=== PATIENT | female | born 1970 | race Caucasian/White ===

== ENCOUNTER → 2021-03-07 08:04 | Outpatient (BNVA) | payer BC, SELFPAY | PROVIDERS: PCP Family Medicine; Visit Provider Nurse Practitioner Family ==

== ENCOUNTER → 2021-03-21 09:22 | Outpatient (BNVA) | payer BC, SELFPAY | PROVIDERS: PCP Family Medicine; Visit Provider Nurse Practitioner Family ==

== ENCOUNTER → 2021-04-29 08:03 | Outpatient (BNVA) | payer BC, SELFPAY | PROVIDERS: PCP Family Medicine; Visit Provider Nurse Practitioner Family ==

== ENCOUNTER → 2021-05-27 08:02 | Outpatient (BNVA) | payer BC, SELFPAY | PROVIDERS: PCP Family Medicine; Visit Provider Nurse Practitioner Family ==

== ENCOUNTER → 2021-07-02 08:02 | Outpatient (BNVA) | payer BC, SELFPAY | PROVIDERS: PCP Family Medicine; Visit Provider Nurse Practitioner Family ==

== ENCOUNTER → 2021-07-30 08:00 | Outpatient (BNVA) | payer BC, SELFPAY | PROVIDERS: PCP Family Medicine; Visit Provider Anesthesiology ==

== ENCOUNTER → 2021-08-29 08:23 | Outpatient (BNVA) | payer BC, SELFPAY | PROVIDERS: PCP Family Medicine; Visit Provider Nurse Practitioner Family ==

== ENCOUNTER → 2021-09-26 08:18 | Outpatient (BNVA) | payer BC, SELFPAY | PROVIDERS: PCP Family Medicine; Visit Provider Nurse Practitioner Family ==

== ENCOUNTER → 2021-10-24 08:48 | Outpatient (BNVA) | payer BC, SELFPAY | PROVIDERS: PCP Family Medicine; Visit Provider Nurse Practitioner Family ==

== ENCOUNTER → 2021-11-21 11:18 | Outpatient (BNVA) | payer BC, SELFPAY | PROVIDERS: PCP Family Medicine; Visit Provider Nurse Practitioner Family ==

== ENCOUNTER → 2021-12-19 08:44 | Outpatient (BNVA) | payer BC, SELFPAY | PROVIDERS: PCP Family Medicine; Visit Provider Nurse Practitioner Family ==

== ENCOUNTER → 2022-01-16 08:13 | Outpatient (BNVA) | payer BC, SELFPAY | PROVIDERS: PCP Family Medicine; Visit Provider Nurse Practitioner Family ==

== ENCOUNTER → 2022-02-13 08:00 | Outpatient (BNVA) | payer BC, SELFPAY | PROVIDERS: PCP Family Medicine; Visit Provider Internal Medicine | DX: Z13.89 Encounter for screening for other disorder (principal) ==

== ENCOUNTER → 2022-03-12 07:57 | Outpatient (BNVA) | payer BC, SELFPAY | PROVIDERS: Visit Provider Internal Medicine Endocrinology, Diabetes & Metabolism | DX: Z13.89 Encounter for screening for other disorder (principal) ==

== ENCOUNTER → 2022-03-20 08:23 | Outpatient (BNVA) | payer BC, SELFPAY | PROVIDERS: PCP Family Medicine; Visit Provider Nurse Practitioner Family | DX: Z13.89 Encounter for screening for other disorder (principal) ==

== ENCOUNTER → 2022-04-17 08:01 | Outpatient (BNVA) | payer BC, SELFPAY | PROVIDERS: PCP Family Medicine; Visit Provider Nurse Practitioner Family | DX: Z13.89 Encounter for screening for other disorder (principal) ==

== ENCOUNTER → 2022-07-14 08:24 | Outpatient (BNVA) | payer BC, SELFPAY | PROVIDERS: PCP Family Medicine; Visit Provider Nurse Practitioner Family | DX: Z51.81 Encounter for therapeutic drug level monitoring (principal); Z79.899 Other long term (current) drug therapy | CPT/HCPCS: 99211 ==

== ENCOUNTER → 2022-11-23 08:17 | Outpatient (BNVA) | payer BC, SELFPAY | PROVIDERS: PCP Family Medicine; Visit Provider Nurse Practitioner Family | DX: Z79.899 Other long term (current) drug therapy (principal) ==

== ENCOUNTER → 2022-12-21 08:22 | Outpatient (BNVA) | payer BC, SELFPAY | PROVIDERS: PCP Family Medicine; Visit Provider Nurse Practitioner Family | DX: Z79.899 Other long term (current) drug therapy (principal) ==

== ENCOUNTER → 2023-01-18 08:18 | Outpatient (BNVA) | payer BC, SELFPAY | PROVIDERS: PCP Family Medicine; Visit Provider Nurse Practitioner Family | DX: Z13.89 Encounter for screening for other disorder (principal) ==

== ENCOUNTER → 2023-02-15 08:34 | Outpatient (BNVA) | payer BC, SELFPAY | PROVIDERS: PCP Family Medicine; Visit Provider Nurse Practitioner Family | DX: Z13.89 Encounter for screening for other disorder (principal) ==

== ENCOUNTER → 2023-03-15 13:21 | Outpatient (BNVA) | payer BC, SELFPAY | PROVIDERS: PCP Family Medicine; Visit Provider Nurse Practitioner Family | DX: Z13.89 Encounter for screening for other disorder (principal) ==

== ENCOUNTER → 2023-04-14 08:35 | Outpatient (BNVA) | payer BC, SELFPAY | PROVIDERS: PCP Family Medicine; Visit Provider Nurse Practitioner Family ==

== ENCOUNTER → 2023-05-13 08:20 | Outpatient (BNVA) | payer BC, SELFPAY | PROVIDERS: PCP Family Medicine; Visit Provider Nurse Practitioner Family ==

== ENCOUNTER 2023-06-10 08:22 | Outpatient (AMB) | payer BC, SELFPAY ==
--- NOTE | 2023-06-10 08:29 | MHC.OFFVIS ---
Intake Vital Signs 06/10/23 08:35 Height 5 ft 4 in Weight 186 lb BMI 31.9 BP 135/63 Blood Pressure Location Lt brachial Position Sitting Pulse 69 Pulse Source Pulse Oximeter Pulse Oximetry (%) 97 Oxygen Delivery Method Room Air Intake Visit Reasons: Pill count Intake Note: Otilia comes in today for a pill count to oxycodone-acetaminophen, patient should have 78 tablets and presents with 78 tablets which she last took today 06/10/23 at 6am. Pain today5/10. Clinical Nursing Intern Required: No Accompanied by: Self / Same As Patient Allergies amphetamine [From Mydayis] Allergy (Severe, Verified 06/10/23 08:36) Hypertension dextroamphetamine [From Mydayis] Allergy (Severe, Verified 06/10/23 08:36) Hypertension HPI HPI Comments History of Present Illness Details Otilia returns today for a pill count. She is supposed to have #78 pills in her possession and presents with #78 pills. This demonstrates a responsible attitude in regards to the medication regimen. Patient reports adequate analgesia with no noted side effects. Denies any changes to her symptoms or any fever, hot flashes, headaches, constipation, sedation, nausea, dizziness or urinary retention. She rates her pain at 5/10. Patient reports current medication regime allows her to be less symptomatic and more functional. Patient continues to report insomnia due to menopause and has not slept well for few nights. She was told to take Benadryl by her current Chinese Instructor provider. Patient is interested in Psychology referral to manage her insomnia and chronic pain syndrome with potential referral for CBT therapy. [facility] Surgical History H/O breast augmentation Family History Mother Carcinoid tumor Diabetes Hypertension High cholesterol Father Heart disease Social History Alcohol intake: current Alcohol intake frequency: does not drink Patient Tobacco Use Status: Former Tobacco user Review of Systems Const All systems reviewed & are unremarkable except as noted in HPI and below Physical Exam General: Appears afebrile. Alert and oriented. Mood and affect appropriate. Follows and participates in conversation appropriately. Respiratory effort is unlabored. No cough. Able to transition from sit to stand unassisted. Ambulates with bilaterally normal heel strike and toe off. Psych Appearance: grossly normal Mental Status: mental status grossly normal Speech and movement: Normal speech and movement present and Clear speech present Affect: normal affect Attitude: cooperative Thought process: Normal thought process present Thought content: Normal thought content present, suicidality (none), no hallucinations and No Depressive thoughts present Insight: Good insight present (Psych) Judgement: Good judgement present (Psych) Assessment & Plan Assessment & Plan (1) Menopause syndrome: Code(s): N95.1 - Menopausal and female climacteric states (2) Insomnia associated with menopause: Code(s): N95.1 - Menopausal and female climacteric states (3) Chronic, continuous use of opioids: Code(s): F11.90 - Opioid use, unspecified, uncomplicated (4) Pituitary adenoma: Code(s): D35.2 - Benign neoplasm of pituitary gland (5) Chronic pain: Code(s): G89.29 - Other chronic pain Plan Otilia has shown accountability for her medication regimen and the pill count was accurate. Recent random UDS came back concordant. The patient reported no noted side effects and she reports adequate pain relief. There is no evidence of misuse, abuse or diversion at this time. [employer] reviewed. Opioid contract reviewed and signed. Will send in prescription for Percocet 10-325 mg TID with an advanced date of 06/23/23. Psychology referral for insomnia related to menopause per patient's request. All questions were answered and patient was in agreement of plan. Follow up in one month for a pill counn and sooner if needed. Orders: Referrals Psychology Referral D35.2 - Benign neoplasm of pituitary gland, F190 - Opioid use, unspecified, uncomplicated, N95.1 - Menopausal and female climacteric states Medications: Refilled oxycodone-acetaminophen 5-325 mg Partial Fill upon patient request. 2 tabs PO Q8H PRN 180 tabs 0RF pain 30 days D35.2 - Benign neoplasm of pituitary gland, F190 - Opioid use, unspecified, uncomplicated, G89.29 - Other chronic pain Coding Level of Care Code Est Pt Level 4 (38792) Diagnoses Menopause syndrome N95.1 Insomnia associated with menopause N95.1 Chronic, continuous use of opioids . Pituitary adenoma D35.2 Chronic pain G89.29
[2023-06-10 08:35] VITALS: BP 135/63; PULSE 69; O2SAT 97; BMI 31.9
== END 2023-06-10 08:40 | disposition home or self-care (01) ==
PROVIDERS: PCP Family Medicine; Visit Provider Nurse Practitioner Family
DX: N95.1 Menopausal and female climacteric states (principal); D35.2 Benign neoplasm of pituitary gland; G89.29 Other chronic pain; Z79.891 Long term (current) use of opiate analgesic
CPT/HCPCS: 99214

== ENCOUNTER 2023-07-08 08:49 | Outpatient (AMB) | payer BC, SELFPAY ==
--- NOTE | 2023-07-08 08:51 | A.OFFVIS_ITS ---
Intake Vital Signs 07/08/23 09:02 07/08/23 09:28 Height 5 ft 4 in Weight 187 lb 6 oz BMI 32.2 BP 165/74 H 141/77 H Blood Pressure Location Rt brachial Lt brachial Position Sitting Sitting Respiration 16 Pulse 75 76 Pulse Source Pulse Oximeter Pulse Oximetry (%) 98 Oxygen Delivery Method Room Air Comment BP rechecked at 0915 Intake Visit Reasons: PILL COUNT Intake Note: Otilia comes in today for a pill count to oxycodone-acetaminophen, patient should have 90 tablets and presents with 90 tablets which she last took today 07/08/23 at 8am. Pain today 6/10. Mail Service Coordinator Required: No Accompanied by: Self / Same As Patient Allergies amphetamine [From Mydayis] Allergy (Severe, Verified 07/08/23 09:03) Hypertension dextroamphetamine [From Mydayis] Allergy (Severe, Verified 07/08/23 09:03) Hypertension HPI HPI Comments History of Present Illness Details Patient presents today for a pill count. She is supposed to have #90 pills in her possession and presents with #90 pills. This demonstrates a responsible attitude in regards to the medication regimen. Patient reports adequate analgesia with no noted side effects. Patient reports current medication regime allows her to be less symptomatic and more functional. Patient reports she recently had eye exam and is undergoing another visual field testing this week to confirm left eye glaucoma and discuss treatments with her provider. She denies any other changes to her symptoms or any fever, hot flashes, headaches, constipation, sedation, nausea, dizziness or urinary retention. She rates her pain at 6/10. [facility] Surgical History H/O breast augmentation Family History Mother Carcinoid tumor Diabetes Hypertension High cholesterol Father Heart disease Social History Alcohol intake: current Alcohol intake frequency: does not drink Patient Tobacco Use Status: Former Tobacco user Review of Systems Const All systems reviewed & are unremarkable except as noted in HPI and below Physical Exam Vital Signs: Last Vital Signs Pulse 76 07/08/23 09:28 Resp 16 07/08/23 09:28 BP 141/77 H 07/08/23 09:28 Pulse Ox 98 07/08/23 09:02 Oxygen Delivery Method Room Air 07/08/23 09:02 BMI result Body Mass Index 32.2 General: Appears afebrile. Alert and oriented. Mood and affect appropriate. Fully engaged in conversation. Follows and participates in conversation appropriately. Respiratory effort is unlabored. No cough. No nasal discharge. Able to transition from sit to stand unassisted. Ambulates with bilaterally normal heel strike and toe off. Psych Appearance: grossly normal Mental Status: mental status grossly normal Speech and movement: Normal speech and movement present and Clear speech present Affect: normal affect Attitude: cooperative Thought process: Normal thought process present Thought content: Normal thought content present, suicidality (none), no hallucinations and No Depressive thoughts present Insight: Good insight present (Psych) Judgement: Good judgement present (Psych) Assessment & Plan Assessment & Plan (1) Chronic, continuous use of opioids: Code(s): F1.90 - Opioid use, unspecified, uncomplicated (2) Pituitary adenoma: Code(s): D35.2 - Benign neoplasm of pituitary gland (3) Chronic pain: Code(s): G89.29 - Other chronic pain Plan Patient has shown accountability for her medication regimen and the pill count was accurate. The patient reported no noted side effects and she reports adequate pain relief. There is no evidence of misuse, abuse or diversion at this time. [employer] reviewed. Will send in prescription for Percocet 10-325 mg TID with an advanced date of 07/23/23. All questions were answered and patient was in agreement of plan. Follow up in one month for a pill count and sooner if needed. Medications: Refilled oxycodone-acetaminophen 5-325 mg Partial Fill upon patient request. 2 tabs PO Q8H 30 days PRN 180 tabs 0RF pain D35.2 - Benign neoplasm of pituitary gland, F11.90 - Opioid use, unspecified, uncomplicated, G89.29 - Other chronic pain Coding Level of Care Code Est Pt Level 4 (34634) Diagnoses Chronic, continuous use of opioids Pituitary adenoma D35.2 Chronic pain G89.29
[2023-07-08 09:02] VITALS: BP 165/74; PULSE 75; O2SAT 98; BMI 32.2
[2023-07-08 09:28] VITALS: BP 141/77; PULSE 76; RESP 16
== END 2023-07-08 09:14 | disposition home or self-care (01) ==
PROVIDERS: PCP Family Medicine; Visit Provider Nurse Practitioner Family
DX: G89.29 Other chronic pain (principal); Z79.891 Long term (current) use of opiate analgesic; D35.2 Benign neoplasm of pituitary gland
CPT/HCPCS: 99214

== ENCOUNTER → 2023-07-08 08:49 | Outpatient (BNVA) | payer BC, SELFPAY | PROVIDERS: PCP Family Medicine; Visit Provider Nurse Practitioner Family ==

== ENCOUNTER 2023-08-05 08:31 | Outpatient (AMB) | payer BC, SELFPAY ==
--- NOTE | 2023-08-05 08:38 | A.OFFVIS_ITS ---
Intake Vital Signs 08/05/23 08:46 Height 5 ft 4 in Weight 185 lb 2 oz BMI 31.8 BP 132/75 Blood Pressure Location Lt brachial Position Sitting Pulse 69 Pulse Source Pulse Oximeter Pulse Oximetry (%) 98 Oxygen Delivery Method Room Air Intake Visit Reasons: Pill count/Lvm Intake Note: Otilia comes in today for a pill count to oxycodone-acetaminophen, patient should have 102 tablets and presents with 102 tablets which she last took today 08/05/23 at 8am. Pain today 6/10. Managing Manager Required: No Accompanied by: Self / Same As Patient Allergies amphetamine [From Mydayis] Allergy (Severe, Verified 08/05/23 08:47) Hypertension dextroamphetamine [From Mydayis] Allergy (Severe, Verified 08/05/23 08:47) Hypertension HPI HPI Comments History of Present Illness Details Patient presents today for a pill count. She is supposed to have #102 pills in her possession and presents with #102 pills. This demonstrates a responsible attitude in regards to the medication regimen. Patient reports adequate analgesia with no noted side effects. Patient reports current medication regime allows her to be less symptomatic and more functional. Patient denies any fever, chills, shortness of breaths, constipation, sedation, nausea, dizziness or urinary retention. She rates her pain at 6/10 due to overcoming from a strong headache yesterday. [facility] Surgical History H/O breast augmentation Family History Mother Carcinoid tumor Diabetes Hypertension High cholesterol Father Heart disease Social History Alcohol intake: current Alcohol intake frequency: does not drink Patient Tobacco Use Status: Former Tobacco user Review of Systems Const All systems reviewed & are unremarkable except as noted in HPI and below Physical Exam General: Appears afebrile. Alert and oriented. Mood and affect appropriate. Follows and participates in conversation appropriately. Respiratory effort is unlabored. No cough. Able to transition from sit to stand unassisted. Ambulates with bilaterally normal heel strike and toe off. Psych Appearance: grossly normal and well kempt Mental Status: mental status grossly normal Speech and movement: Normal speech and movement present and Clear speech present Affect: normal affect Attitude: cooperative Thought process: Normal thought process present Thought content: Normal thought content present, suicidality (none), no hallucinations and No Depressive thoughts present Insight: Good insight present (Psych) Judgement: Good judgement present (Psych) Assessment & Plan Assessment & Plan (1) Chronic, continuous use of opioids: Code(s): F11.90 - Opioid use, unspecified, uncomplicated (2) Pituitary adenoma: Code(s): D35.2 - Benign neoplasm of pituitary gland (3) Chronic pain: Code(s): G89.29 - Other chronic pain Plan Patient has shown accountability for her medication regimen and the pill count was accurate. The patient reported no noted side effects and she reports adequate pain relief. There is no evidence of misuse, abuse or diversion at this time. [employer]. Will send in prescription for Percocet 10-325 mg TID with an advanced date of 08/21/23. All questions were answered and patient was in agreement of plan. Follow up in one month for a pill count and sooner if needed. Medications: Refilled oxycodone-acetaminophen 5-325 mg Partial Fill upon patient request. 2 tabs PO Q8H PRN 180 tabs 0RF pain 30 days D35.2 - Benign neoplasm of pituitary gland, F11.90 - Opioid use, unspecified, uncomplicated, G89.29 - Other chronic pain Coding Level of Care Code Est Pt Level 4 (59188) Diagnoses Chronic, continuous use of opioids F11.90 Pituitary adenoma D35.2 Chronic pain G89.29
[2023-08-05 08:46] VITALS: BP 132/75; PULSE 69; O2SAT 98; BMI 31.8
== END 2023-08-05 08:58 | disposition home or self-care (01) ==
PROVIDERS: PCP Family Medicine; Visit Provider Nurse Practitioner Family
DX: G89.29 Other chronic pain (principal); D35.2 Benign neoplasm of pituitary gland; Z79.891 Long term (current) use of opiate analgesic
CPT/HCPCS: 99214

== ENCOUNTER → 2023-08-05 08:31 | Outpatient (BNVA) | payer BC, SELFPAY | PROVIDERS: PCP Family Medicine; Visit Provider Nurse Practitioner Family ==

== ENCOUNTER 2023-09-03 12:52 | Outpatient (AMB) | payer BC, SELFPAY ==
--- NOTE | 2023-09-03 12:54 | MHC.OFFVIS ---
Intake Vital Signs 09/03/23 13:06 Height 5 ft 4 in Weight 187 lb 8 oz BMI 32.2 BP 147/67 H Blood Pressure Location Lt brachial Position Sitting Pulse 66 Pulse Source Pulse Oximeter Pulse Oximetry (%) 97 Oxygen Delivery Method Room Air Intake Visit Reasons: PILL COUNT Intake Note: Otilia comes in today for a pill count to oxycodone-acetaminophen, patient should have 96 tablets and presents with 102 tablets which she last took today 09/03/23 at 11 am. Pain today 04/24 Patient states that she will be going on a business trip for work starting 09/06/23 through 09/10/23. [employer] Required: No Accompanied by: Self / Same As Patient Allergies amphetamine [From Mydayis] Allergy (Severe, Verified 09/03/23 13:07) Hypertension dextroamphetamine [From Mydayis] Allergy (Severe, Verified 09/03/23 13:07) Hypertension HPI HPI Comments History of Present Illness Details Patient presents today for a pill count. She is supposed to have #96 pills in her possession and presents with #102 pills. This demonstrates a responsible attitude in regards to the medication regimen. Patient reports adequate analgesia with no noted side effects. Patient reports current medication regime allows her to be less symptomatic and more functional. Patient denies any fever, chills, shortness of breaths, chest pain or tightness, visual disturbances, weakness, constipation, sedation, nausea, dizziness or urinary retention. Patient continues to report sleep deprivation, insomnia and headaches due to post menopausal changes. She was recently prescribed Dayvigo 5 mg at bedtime but unable to receive medication due to prolonged prior authorization status per her PCP office. [facility] Surgical History H/O breast augmentation Family History Mother Carcinoid tumor Diabetes Hypertension High cholesterol Father Heart disease Social History Alcohol intake: current Alcohol intake frequency: does not drink Patient Tobacco Use Status: Former Tobacco user Review of Systems Const All systems reviewed & are unremarkable except as noted in HPI and below Physical Exam General: Appears afebrile. Alert and oriented. Mood and affect appropriate. Follows and participates in conversation appropriately. Respiratory effort is unlabored. No cough. Able to transition from sit to stand unassisted. Ambulates with bilaterally normal heel strike and toe off. Psych Appearance: grossly normal and well kempt Mental Status: mental status grossly normal Speech and movement: Normal speech and movement present and Clear speech present Affect: normal affect Attitude: cooperative Thought process: Normal thought process present Thought content: Normal thought content present, suicidality (none), no hallucinations and No Depressive thoughts present Insight: Good insight present (Psych) Judgement: Good judgement present (Psych) Assessment & Plan Assessment & Plan (1) Insomnia associated with menopause: Code(s): N95.1 - Menopausal and female climacteric states (2) Chronic, continuous use of opioids: Code(s): F1.90 - Opioid use, unspecified, uncomplicated (3) Pituitary adenoma: Code(s): D35.2 - Benign neoplasm of pituitary gland (4) Chronic pain: Code(s): G89.29 - Other chronic pain Plan Patient has shown accountability for her medication regimen and the pill count was accurate. The patient reported no noted side effects and she reports adequate pain relief. There is no evidence of misuse, abuse or diversion at this time. [employer] reviewed. Will send in prescription for Percocet 10-325 mg TID with an advanced date of 09/20/23. Script send for Dayvigo, side effects and precautions were reviewed with patient. All questions were answered and patient was in agreement of plan. Follow up in one month for a pill count and sooner if needed. Medications: New lemborexant (Dayvigo) 5 mg PO BEDTIME 30 days 30 tabs 0RF insomnia N95.1 - Menopausal and female climacteric states Refilled oxycodone-acetaminophen 5-325 mg Partial Fill upon patient request. 2 tabs PO Q8H 30 days PRN 180 tabs 0RF pain D35.2 - Benign neoplasm of pituitary gland, F1.90 - Opioid use, unspecified, uncomplicated, G89.29 - Other chronic pain Coding Level of Care Code Est Pt Level 4 (22482) Diagnoses Insomnia associated with menopause N95.1 Chronic, continuous use of opioids F1.90 Pituitary adenoma D35.2 Chronic pain G89.29
[2023-09-03 13:06] VITALS: BP 147/67; PULSE 66; O2SAT 97; BMI 32.2
== END 2023-09-03 13:19 | disposition home or self-care (01) ==
PROVIDERS: PCP Family Medicine; Visit Provider Nurse Practitioner Family
DX: G89.29 Other chronic pain (principal); N95.1 Menopausal and female climacteric states; D35.2 Benign neoplasm of pituitary gland; Z79.891 Long term (current) use of opiate analgesic
CPT/HCPCS: 99214

== ENCOUNTER → 2023-09-03 12:52 | Outpatient (BNVA) | payer BC, SELFPAY | PROVIDERS: PCP Family Medicine; Visit Provider Nurse Practitioner Family ==

== ENCOUNTER → 2023-10-06 12:55 | Outpatient (BNVA) | payer BC, SELFPAY | PROVIDERS: PCP Family Medicine; Visit Provider Nurse Practitioner Family | DX: Z79.891 Long term (current) use of opiate analgesic (principal) | CPT/HCPCS: 99211 ==

== ENCOUNTER 2023-11-05 13:10 | Outpatient (AMB) | payer BC, SELFPAY ==
--- NOTE | 2023-11-05 13:16 | A.OFFVIS_ITS ---
Intake Vital Signs 11/05/23 13:24 Height 5 ft 4 in Weight 187 lb 2 oz BMI 32.1 BP 152/67 H Blood Pressure Location Rt brachial Position Sitting Pulse 63 Pulse Source Pulse Oximeter Pulse Oximetry (%) 97 Oxygen Delivery Method Room Air Intake Visit Reasons: Medication Count/lvm Intake Note: Otilia comes in today for a pill count to oxycodone-acetaminophen, patient should have 72 tablets and presents with 79 tablets which she last took today 11/05/23 at 11am. Pain today 4.5 Anesthesiologist Attending Required: No Accompanied by: Self / Same As Patient Allergies amphetamine [From Mydayis] Allergy (Severe, Verified 11/05/23 13:24) Hypertension dextroamphetamine [From Mydayis] Allergy (Severe, Verified 11/05/23 13:24) Hypertension HPI HPI Comments History of Present Illness Details Patient presents today for a pill count. She is supposed to have #72 pills in her possession and presents with #79 pills. This demonstrates a respon sible attitude in regards to the medication regimen. Patient reports adequate analgesia with no noted side effects. Patient reports current medication regime allows her to be less symptomatic and more functional. Patient denies any fever, chills, shortness of breaths, chest pain or tightness, visual disturbances, weakness, constipation, sedation, nausea, dizziness or urinary retention. Patient reports significant improvement in her sleep onset and maintenance since starting Dayvigo 5 mg at bedtime. She reports 7 hours of night sleep and wakes up without drowsiness, rested and with increased energy levels. [facility] Surgical History H/O breast augmentation Family History Mother Carcinoid tumor Diabetes Hypertension High cholesterol Father Heart disease Social History Alcohol intake: current Alcohol intake frequency: does not drink Patient Tobacco Use Status: Former Tobacco user Review of Systems Const All systems reviewed & are unremarkable except as noted in HPI and below Physical Exam Vital Signs: Last Vital Signs Pulse 63 11/05/23 13:24 BP 152/67 H 11/05/23 13:24 Pulse Ox 97 11/05/23 13:24 Oxygen Delivery Method Room Air 11/05/23 13:24 BMI result Body Mass Index 32.1 General: Appears afebrile. Alert and oriented. Mood and affect appropriate. Follows and participates in conversation appropriately. Respiratory effort is unlabored. No cough. Able to transition from sit to stand unassisted. Ambulates with bilaterally normal heel strike and toe off. Psych Appearance: grossly normal Mental Status: mental status grossly normal Speech and movement: Normal speech and movement present and Clear speech present Affect: normal affect and Ecstatic affect present Attitude: cooperative Thought process: Normal thought process present Thought content: Normal thought content present, suicidality (none), no hallucinations and No Depressive thoughts present Insight: Good insight present (Psych) Judgement: Good judgement present (Psych) Assessment & Plan Assessment & Plan (1) Insomnia associated with menopause: Code(s): N95.1 - Menopausal and female climacteric states (2) Chronic, continuous use of opioids: Code(s): F1.90 - Opioid use, unspecified, uncomplicated (3) Pituitary adenoma: Code(s): D35.2 - Benign neoplasm of pituitary gland (4) Chronic pain: Code(s): G89.29 - Other chronic pain Plan Patient has shown accountability for her medication regimen and the pill count was accurate. The patient reported no noted side effects and she reports adequate pain relief. There is no evidence of misuse, abuse or diversion at this time. [employer] reviewed. Will send in prescription for Percocet 10-325 mg TID with an advanced date of 11/18/23. Refill sent for Dayvigo. All questions were answered and patient was in agreement of plan. Follow up in one month for a pill count and sooner if needed. Medications: Refilled lemborexant (Dayvigo) 5 mg PO BEDTIME 30 days 30 tabs 2RF insomnia N95.1 - Menopausal and female climacteric states oxycodone-acetaminophen 5-325 mg Partial Fill upon patient request. 2 tabs PO Q8H 30 days PRN 180 tabs 0RF pain D35.2 - Benign neoplasm of pituitary gland, F11.90 - Opioid use, unspecified, uncomplicated, G89.29 - Other chronic pain Coding Level of Care Code Est Pt Level 4 (30636) Diagnoses Insomnia associated with menopause N95.1 Chronic, continuous use of opioids F11.90 Pituitary adenoma D35.2 Chronic pain G89.29
[2023-11-05 13:24] VITALS: BP 152/67; PULSE 63; O2SAT 97; BMI 32.1
== END 2023-11-05 13:34 | disposition home or self-care (01) ==
PROVIDERS: PCP Family Medicine; Visit Provider Nurse Practitioner Family
DX: G89.29 Other chronic pain (principal); D35.2 Benign neoplasm of pituitary gland; Z79.891 Long term (current) use of opiate analgesic; N95.1 Menopausal and female climacteric states
CPT/HCPCS: 99214

== ENCOUNTER → 2023-11-05 13:10 | Outpatient (BNVA) | payer BC, SELFPAY | PROVIDERS: PCP Family Medicine; Visit Provider Nurse Practitioner Family ==

== ENCOUNTER 2023-12-10 08:15 | Outpatient (AMB) | payer BC, SELFPAY ==
--- NOTE | 2023-12-10 08:20 | MHC.OFFVIS ---
Intake Vital Signs 12/10/23 08:29 Height 5 ft 4 in Weight 185 lb 4 oz BMI 31.8 BP 143/77 H Blood Pressure Location Rt brachial Pulse 77 Pulse Source Pulse Oximeter Pulse Oximetry (%) 99 Oxygen Delivery Method Room Air Intake Visit Reasons: PILL COUNT/confirmed Intake Note: Otilia comes in today for a pill count to oxycodone-acetaminophen, patient should have 48 tablets and presents with 48 tablets which she last took today 12/10/23 at 7am. Pain today 02/22. Patient also resigned updated opioid contract in office today, signed copy was provided to patient. 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 She is supposed to have #48 pills in her possession and presents with #48 pills. This demonstrates a responsible attitude in regards to the medication regimen. Patient reports adequate analgesia with no noted side effects. Patient reports current medication regime allows her to be less symptomatic and more functional. Patient denies any fever, chills, shortness of breaths, chest pain or tightness, visual disturbances, weakness, constipation, sedation, nausea, dizziness or urinary retention. Patient reports significant improvement in her sleep onset and maintenance since starting Dayvigo 5 mg at bedtime. Patient reports she recently underwent Coronary calcium scan and was told it was normal. However, she reports there was incidental finding of bibasilar atelectasis and 4 mm pulmonary nodule at [facility]. Patient requests referral to [facility] for follow up for pulmonary nodules. [facility] Medical History (Updated 12/10/23 @ 11:16 by STEPHEN Plasencia) Obesity (BMI 30-39.9) Menopause syndrome Insomnia associated with menopause Diabetes Chronic pain Pituitary adenoma Surgical History H/O breast augmentation Family History Mother Carcinoid tumor Diabetes Hypertension High cholesterol Father Heart disease Social History Alcohol intake: current Alcohol intake frequency: does not drink Patient Tobacco Use Status: Former Tobacco user Review of Systems Const All systems reviewed & are unremarkable except as noted in HPI and below Physical Exam Vital Signs: Last Vital Signs Pulse 77 12/10/23 08:29 BP 143/77 H 12/10/23 08:29 Pulse Ox 99 12/10/23 08:29 Oxygen Delivery Method Room Air 12/10/23 08:29 BMI result Body Mass Index 31.8 General: Appears afebrile. Alert and oriented. Mood and affect appropriate. Follows and participates in conversation appropriately. Respiratory effort is unlabored. No cough. Able to transition from sit to stand unassisted. Ambulates with bilaterally normal heel strike and toe off. Resp Effort & Inspection: normal respiratory effort, able to speak in complete sentences, no cough and symmetric chest movement Psych Appearance: grossly normal Mental Status: mental status grossly normal Speech and movement: Normal speech and movement present Affect: normal affect and Anxious affect present Attitude: cooperative Thought process: Normal thought process present Thought content: Normal thought content present, suicidality (none), no hallucinations and No Depressive thoughts present Insight: Good insight present (Psych) Judgement: Good judgement present (Psych) Assessment & Plan Assessment & Plan (1) Insomnia associated with menopause: Code(s): N95.1 - Menopausal and female climacteric states (2) Chronic, continuous use of opioids: Code(s): F11.90 - Opioid use, unspecified, uncomplicated (3) Pituitary adenoma: Code(s): D35.2 - Benign neoplasm of pituitary gland (4) Chronic pain: Code(s): G89.29 - Other chronic pain (5) Pulmonary nodule, right: Code(s): R91.1 - Solitary pulmonary nodule (6) Mild bibasilar atelectasis: Code(s): J98.11 - Atelectasis Plan Patient has shown accountability for her medication regimen and the pill count was accurate. The patient reported no noted side effects and she reports adequate pain relief. There is no evidence of misuse, abuse or diversion at this time. [employer] reviewed. Will send in prescription for Percocet 10-325 mg TID with an advanced date of 12/19/23. Continue Dayvigo, patient has few refills. Pulmonology Referral to follow up for RLL pulmonary nodule noted on recent Coronary calcium scan at [facility]. Patient request [facility] in [place], [place] as this is closer to her home. All questions were answered and patient was in agreement of plan. Follow up in one month for a pill count and sooner if needed. Orders: Referrals Pulmonology Referral J98.11 - Atelectasis, R91.1 - Solitary pulmonary nodule Medications: Refilled oxycodone-acetaminophen 5-325 mg Partial Fill upon patient request. 2 tabs PO Q8H 30 days PRN 180 tabs 0RF pain D35.2 - Benign neoplasm of pituitary gland, F11.90 - Opioid use, unspecified, uncomplicated, G89.29 - Other chronic pain Coding Level of Care Code Est Pt Level 4 (50313) Diagnoses Insomnia associated with menopause N95.1 Chronic, continuous use of opioids F11.90 Pituitary adenoma D35.2 Chronic pain G89.29 Pulmonary nodule, right R91.1 Mild bibasilar atelectasis J98.11
[2023-12-10 08:29] VITALS: BP 143/77; PULSE 77; O2SAT 99; BMI 31.8
== END 2023-12-10 08:47 | disposition home or self-care (01) ==
PROVIDERS: PCP Family Medicine; Visit Provider Nurse Practitioner Family
DX: G89.29 Other chronic pain (principal); D35.2 Benign neoplasm of pituitary gland; Z79.891 Long term (current) use of opiate analgesic; N95.1 Menopausal and female climacteric states; R91.1 Solitary pulmonary nodule; J98.11 Atelectasis
CPT/HCPCS: 99214

== ENCOUNTER → 2023-12-10 08:15 | Outpatient (BNVA) | payer BC, SELFPAY | PROVIDERS: PCP Family Medicine; Visit Provider Nurse Practitioner Family ==

== ENCOUNTER 2024-01-07 08:13 | Outpatient (AMB) | payer BC, SELFPAY ==
--- NOTE | 2024-01-07 08:16 | A.OFFVIS_ITS ---
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 She is supposed to have #60 pills in her possession and presents with #60 pills. This demonstrates a responsible attitude in regards to the medication regimen. Patient reports adequate analgesia with no noted side effects. Rates pain at 02/22. Patient denies any fever, chills, shortness of breaths, chest pain or tightness, visual disturbances, weakness, constipation, sedation, nausea, dizziness or urinary retention. Patient reports significant improvement in her sleep onset and maintenance since starting Dayvigo 5 mg at bedtime. [facility] Medical History Obesity (BMI 30-39.9) Menopause syndrome Insomnia associated with menopause Diabetes Chronic pain Pituitary adenoma Surgical History H/O breast augmentation Family History Mother Carcinoid tumor Diabetes Hypertension High cholesterol Father Heart disease Social History Alcohol intake: current Alcohol intake frequency: does not drink Patient Tobacco Use Status: Former Tobacco user Review of Systems Const All systems reviewed & are unremarkable except as noted in HPI and below Physical Exam Vital Signs: Last Vital Signs Pulse 73 01/07/24 08:36 BP 139/73 01/07/24 08:36 Pulse Ox 96 01/07/24 08:36 Oxygen Delivery Method Room Air 01/07/24 08:36 BMI result Body Mass Index 31.3 General: Appears afebrile. Alert and oriented. Mood and affect appropriate. Follows and participates in conversation appropriately. Respiratory effort is unlabored. No cough. Able to transition from sit to stand unassisted. Ambulates with bilaterally normal heel strike and toe off. Eyes General: appearance normal, both eyes and all related structures Eyelids: Yes eyelids normal Pupils: Equal, round and reactive pupils present Neuro Cranial nerves: Yes Equal, round and reactive pupils present Psych Appearance: grossly normal Mental Status: mental status grossly normal Speech and movement: Normal speech and movement present Affect: normal affect and Anxious affect present Attitude: cooperative Thought process: Normal thought process present Thought content: Normal thought content present, suicidality (none), no hallucinations and No Depressive thoughts present Insight: Good insight present (Psych) Judgement: Good judgement present (Psych) Assessment & Plan Assessment & Plan (1) Insomnia associated with menopause: Code(s): N95.1 - Menopausal and female climacteric states (2) Chronic, continuous use of opioids: Code(s): F11.90 - Opioid use, unspecified, uncomplicated (3) Pituitary adenoma: Code(s): D35.2 - Benign neoplasm of pituitary gland (4) Chronic pain: Code(s): G89.29 - Other chronic pain Plan Patient has shown accountability for her medication regimen and the pill count was accurate. The patient reported no noted side effects and she reports adequate pain relief. There is no evidence of misuse, abuse or diversion at this time. [employer] reviewed. Will send in prescription for Percocet 10-325 mg TID with an advanced date of 01/15/24. Continue Dayvigo, refill provided. All questions were answered and patient was in agreement of plan. Follow up in one month for a pill count and sooner if needed. Medications: Refilled oxycodone-acetaminophen 5-325 mg Partial Fill upon patient request. 2 tabs PO Q8H PRN 180 tabs 0RF pain 30 days D35.2 - Benign neoplasm of pituitary gland, F11.90 - Opioid use, unspecified, uncomplicated, G89.29 - Other chronic pain lemborexant (Dayvigo) 5 mg PO BEDTIME 30 tabs 2RF insomnia 30 days N95.1 - Menopausal and female climacteric states Coding Level of Care Code Est Pt Level 4 (07217) Diagnoses Insomnia associated with menopause N95.1 Chronic, continuous use of opioids F11.90 Pituitary adenoma D35.2 Chronic pain G89.29
[2024-01-07 08:36] VITALS: BP 139/73; PULSE 73; O2SAT 96; BMI 31.3
== END 2024-01-07 08:48 | disposition home or self-care (01) ==
PROVIDERS: PCP Family Medicine; Visit Provider Nurse Practitioner Family
DX: G89.29 Other chronic pain (principal); N95.1 Menopausal and female climacteric states; D35.2 Benign neoplasm of pituitary gland; Z79.891 Long term (current) use of opiate analgesic
CPT/HCPCS: 99214

== ENCOUNTER → 2024-01-07 08:13 | Outpatient (BNVA) | payer BC, SELFPAY | PROVIDERS: PCP Family Medicine; Visit Provider Nurse Practitioner Family ==

== ENCOUNTER 2024-02-04 08:18 | Outpatient (AMB) | payer BC, SELFPAY ==
--- NOTE | 2024-02-04 08:22 | MHC.OFFVIS ---
Intake Vital Signs 02/04/24 08:31 Height 5 ft 4 in Weight 186 lb 2 oz BMI 31.9 BP 131/64 Blood Pressure Location Rt brachial Position Sitting Pulse 75 Pulse Source Pulse Oximeter Pulse Oximetry (%) 100 Oxygen Delivery Method Room Air Intake Visit Reasons: PILL COUNT Intake Note: Otilia comes in today for a pill count to oxycodone-acetaminophen, patient should have 60 tablets and presents with 60 tablets which she last took today 02/04/24 at 7am. Pain today 5.5/10 Nutrition Partner Required: No Accompanied by: Self / Same As Patient Allergies amphetamine [From Mydayis] Allergy (Severe, Verified 02/04/24 08:23) Hypertension dextroamphetamine [From Mydayis] Allergy (Severe, Verified 02/04/24 08:23) Hypertension HPI HPI Comments History of Present Illness Details Patient presents today for a pill count. She is supposed to have #60 pills in her possession and presents with #60 pills. This demonstrates a responsible attitude in regards to the medication regimen. Patient reports adequate analgesia with no noted side effects. Rates pain at 5.5/10. Patient denies any fever, chills, shortness of breaths, chest pain or tightness, visual disturbances, weakness, constipation, sedation, nausea, dizziness or urinary retention. Patient reports ongoing improvement in her sleep onset since starting Dayvigo 5 mg at bedtime but has not always maintaining her sleep through the night. She is still very content with the increased hours of sleep with sleep medication. Patient also reports she was recently started on Lisinopril per her PCP. Denies any other significant changes in her medical history, medications or recent hospitalizations. [facility] Medical History Obesity (BMI 30-39.9) Menopause syndrome Insomnia associated with menopause Diabetes Chronic pain Pituitary adenoma Surgical History H/O breast augmentation Family History Mother Carcinoid tumor Diabetes Hypertension High cholesterol Father Heart disease Social History Alcohol intake: current Alcohol intake frequency: does not drink Patient Tobacco Use Status: Former Tobacco user Review of Systems Const All systems reviewed & are unremarkable except as noted in HPI and below Physical Exam Vital Signs: Last Vital Signs Pulse 75 02/04/24 08:31 BP 131/64 02/04/24 08:31 Pulse Ox 100 02/04/24 08:31 Oxygen Delivery Method Room Air 02/04/24 08:31 BMI result Body Mass Index 31.9 General: Appears afebrile. No acute distress. Alert and oriented. Mood and affect appropriate. Follows and participates in conversation appropriately. Respiratory effort is unlabored. No cough. Able to transition from sit to stand unassisted. Ambulates with bilaterally normal heel strike and toe off. Psych Appearance: grossly normal Mental Status: mental status grossly normal Speech and movement: Normal speech and movement present Affect: normal affect and Anxious affect present Attitude: cooperative Thought process: Normal thought process present Thought content: Normal thought content present, suicidality (none), no hallucinations and No Depressive thoughts present Insight: Good insight present (Psych) Judgement: Good judgement present (Psych) Results Reviewed Results Reviewed: No imaging reports are available for review today. Assessment & Plan Assessment & Plan (1) Insomnia associated with menopause: Code(s): N95.1 - Menopausal and female climacteric states (2) Chronic, continuous use of opioids: Code(s): F11.90 - Opioid use, unspecified, uncomplicated (3) Pituitary adenoma: Code(s): D35.2 - Benign neoplasm of pituitary gland (4) Chronic pain: Code(s): G89.29 - Other chronic pain Plan Patient has shown accountability for her medication regimen and the pill count was accurate. The patient reported no noted side effects and she reports adequate pain relief. There is no evidence of misuse, abuse or diversion at this time. [employer] reviewed and consistent. Prescription sent for Percocet 10-325 mg TID with an advanced date of 02/14/24. Continue Dayvigo, refill provided. All questions were answered and patient was in agreement of plan. Follow up in 4 weeks for a pill count and sooner if needed. Medications: Refilled oxycodone-acetaminophen 5-325 mg Partial Fill upon patient request. 2 tabs PO Q8H PRN 180 tabs 0RF pain 30 days D35.2 - Benign neoplasm of pituitary gland, F11.90 - Opioid use, unspecified, uncomplicated, G89.29 - Other chronic pain lemborexant (Dayvigo) 5 mg PO BEDTIME 30 tabs 2RF insomnia 30 days N95.1 - Menopausal and female climacteric states Coding Level of Care Code Est Pt Level 4 (09069) Diagnoses Insomnia associated with menopause N95.1 Chronic, continuous use of opioids F11.90 Pituitary adenoma D35.2 Chronic pain G89.29
[2024-02-04 08:31] VITALS: BP 131/64; PULSE 75; O2SAT 100; BMI 31.9
== END 2024-02-04 08:39 | disposition home or self-care (01) ==
PROVIDERS: PCP Family Medicine; Visit Provider Nurse Practitioner Family
DX: N95.1 Menopausal and female climacteric states (principal); D35.2 Benign neoplasm of pituitary gland; G89.29 Other chronic pain; Z79.891 Long term (current) use of opiate analgesic
CPT/HCPCS: 99214

== ENCOUNTER → 2024-02-04 08:18 | Outpatient (BNVA) | payer BC, SELFPAY | PROVIDERS: PCP Family Medicine; Visit Provider Nurse Practitioner Family ==

== ENCOUNTER 2024-03-06 08:20 | Outpatient (AMB) | payer BC, SELFPAY ==
--- NOTE | 2024-03-06 08:22 | MHC.OFFVIS ---
Vital Signs 03/06/24 08:31 Height 5 ft 4 in Weight 187 lb 8 oz BMI 32.2 BP 137/65 Blood Pressure Location Rt brachial Position Sitting Pulse 67 Pulse Source Pulse Oximeter Pulse Oximetry (%) 99 Oxygen Delivery Method Room Air Intake Visit Reasons: PILL COUNT Intake Note: Otilia comes in today for a pill count to oxycodone-acetaminophen. Patient should have 54 tablets and presents with 54 tablets which she last took today 03/06/24 at 5am. Pain today 6/10. 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 She is supposed to have #54 pills in her possession and presents with 54# pills. This demonstrates a responsible attitude in regards to the medication regimen. Patient reports adequate analgesia with no noted side effects. Rates pain at 6/10. Patient denies any fever, chills, shortness of breaths, chest pain or tightness, visual disturbances, weakness, constipation, sedation, nausea, dizziness or urinary retention. Patient reports chronic neck pain that has been progressively getting worse. Denies any trauma, injury or falls. Patient has been undergoing weekly massages, taking Advil, moist heat, and regular gentle stretching exercises with continued symptoms. Reports minimal pain relief with oxycodone. Denies trying muscle relaxants. Reports good but temporary relief with massage therapy. Denies previous physical or chiropractic therapy. She attributes her neck pain due to working on computer. She presents with limited range of motions, laterally right worse then left and increase in symptoms with cervical flexion. Reports mild numbness and tingling in her hands and fingers without weakness. Denies any gait imbalances, foot drop, bladder or bowel dysfunction or saddle anesthesia. Patient reports ongoing improvement in her sleep onset since starting Dayvigo 5 mg at bedtime but has not always maintaining her sleep through the night. [facility] Medical History Obesity (BMI 30-39.9) Menopause syndrome Insomnia associated with menopause Diabetes Chronic pain Pituitary adenoma Surgical History H/O breast augmentation Family History Mother Carcinoid tumor Diabetes Hypertension High cholesterol Father Heart disease Social History Alcohol intake: current Alcohol intake frequency: does not drink Patient Tobacco Use Status: Former Tobacco user Review of Systems Const All systems reviewed & are unremarkable except as noted in HPI and below Physical Exam Vital Signs: Last Vital Signs Pulse 67 03/06/24 08:31 BP 137/65 03/06/24 08:31 Pulse Ox 99 03/06/24 08:31 Oxygen Delivery Method Room Air 03/06/24 08:31 BMI result Body Mass Index 32.2 General: Appears afebrile. No acute distress. Alert and oriented. Mood and affect appropriate. Follows and participates in conversation appropriately. Respiratory effort is unlabored. No cough. Able to transition from sit to stand unassisted. Ambulates with bilaterally normal heel strike and toe off. Neck Neck: Yes no lymphadenopathy, Yes supple, No anterior neck swelling, Yes no JVD, No prominent supraclavicular fat pad and No prominent dorsocervical fat pad Resp Effort & Inspection: normal respiratory effort, able to speak in complete sentences, no cough and symmetric chest movement Back/Spine/Pelvis Cervical Spine: No collar present, cervical muscular tenderness, pain with cervical ROM, cervical spasm, No Cervical spine tenderness and No step off deformity Psych Appearance: grossly normal Mental Status: mental status grossly normal Speech and movement: Normal speech and movement present Affect: normal affect and Anxious affect present Attitude: cooperative Thought process: Normal thought process present Thought content: Normal thought content present, suicidality (none), no hallucinations and No Depressive thoughts present Insight: Good insight present (Psych) Judgement: Good judgement present (Psych) Results Reviewed Results Reviewed: No imaging reports are available for review today. Assessment & Plan Assessment & Plan (1) Insomnia associated with menopause: Code(s): N95.1 - Menopausal and female climacteric states Category: Medical (2) Chronic, continuous use of opioids: Code(s): F11.90 - Opioid use, unspecified, uncomplicated Category: Medical (3) Pituitary adenoma: Code(s): D35.2 - Benign neoplasm of pituitary gland Category: Medical (4) Chronic pain: Code(s): G89.29 - Other chronic pain Category: Medical (5) Cervical spondylosis: Code(s): M47.812 - Spondylosis without myelopathy or radiculopathy, cervical region Category: Medical (6) Cervicalgia: Code(s): M54.2 - Cervicalgia Category: Medical (7) Muscle spasms of neck: Code(s): M62.838 - Other muscle spasm Category: Medical Plan Patient has shown accountability for her medication regimen and the pill count was accurate. The patient reported no noted side effects and she reports adequate pain relief. There is no evidence of misuse, abuse or diversion at this time. [place] [employer] reviewed and consistent. Prescription sent for Percocet 10-325 mg TID with an advanced date of 03/14/24. Continue Dayvigo, prior authorization completed. Cervical spine imaging to assess degree of degenerative changes, any subluxation, listhesis, compression fractures or pars defects. Continue HEP, NSAIDs, heat therapy, good posture, activity modifications, work ergonomic adjustments and adequate daily hydration. All questions were answered and patient was in agreement of plan. Follow up in one month for a pill count and sooner if needed. Orders: Orders XR cervical spine min 6V Today M47.812 - Spondylosis without myelopathy or radiculopathy, cervical region, M54.2 - Cervicalgia, M62.838 - Other muscle spasm Medications: Refilled oxycodone-acetaminophen 5-325 mg Partial Fill upon patient request. 2 tabs PO Q8H PRN 180 tabs 0RF pain 30 days D35.2 - Benign neoplasm of pituitary gland, F11.90 - Opioid use, unspecified, uncomplicated, G89.29 - Other chronic pain
[2024-03-06 08:31] VITALS: BP 137/65; PULSE 67; O2SAT 99; BMI 32.2
== END 2024-03-06 08:44 | disposition home or self-care (01) ==
PROVIDERS: PCP Family Medicine; Visit Provider Nurse Practitioner Family
DX: G89.29 Other chronic pain (principal); N95.1 Menopausal and female climacteric states; D35.2 Benign neoplasm of pituitary gland; Z79.891 Long term (current) use of opiate analgesic; M47.812 Spondylosis without myelopathy or radiculopathy, cervical region; M54.2 Cervicalgia; M62.838 Other muscle spasm
CPT/HCPCS: 99214

== ENCOUNTER → 2024-03-06 08:20 | Outpatient (BNVA) | payer BC, SELFPAY | PROVIDERS: PCP Family Medicine; Visit Provider Nurse Practitioner Family ==

== ENCOUNTER 2024-03-30 08:21 | Outpatient (AMB) | payer BC, SELFPAY ==
--- NOTE | 2024-03-30 08:22 | MHC.OFFVIS ---
Vital Signs 03/30/24 08:29 Height 5 ft 4 in Weight 187 lb 4 oz BMI 32.1 BP 119/61 Blood Pressure Location Lt brachial Position Sitting Pulse 69 Pulse Source Pulse Oximeter Pulse Oximetry (%) 98 Oxygen Delivery Method Room Air Intake Visit Reasons: PILL COUNT Intake Note: Otilia comes in today for a pill count to oxycodone-acetaminophen, patient should have 84 tablets and presents with 84 tablets which she last took today 03/30/24 at 6:30 am. 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 She is supposed to have #84 pills in her possession and presents with 84# pills. This demonstrates a responsible attitude in regards to the medication regimen. Patient reports adequate analgesia with no noted side effects. Rates pain at 3.5/10. Patient denies any fever, chills, shortness of breaths, chest pain or tightness, visual disturbances, weakness, constipation, sedation, nausea, dizziness or urinary retention. Patient reports chronic neck pain that has been progressively getting worse. She went to [facility] and completed xray and started tizanidine once daily, usually closer to bedtime but avoids taking opiod and insomnia medications simultaneously. Patient was told by Orthopedic provider she has loss of cervical lordosis. We discussed potential interventional treatments through our office but recommend to pursue formal physical therapy initially. Reports good but temporary relief with massage therapy. Denies previous physical or chiropractic therapy. She attributes her neck pain due to working on computer. Reports mild numbness and tingling in her hands and fingers without weakness. Denies any gait imbalances, foot drop, bladder or bowel dysfunction or saddle anesthesia. [facility] Medical History Obesity (BMI 30-39.9) Menopause syndrome Insomnia associated with menopause Diabetes Chronic pain Pituitary adenoma Surgical History H/O breast augmentation Family History Mother Carcinoid tumor Diabetes Hypertension High cholesterol Father Heart disease Social History Alcohol intake: current Alcohol intake frequency: does not drink Patient Tobacco Use Status: Former Tobacco user Review of Systems Const All systems reviewed & are unremarkable except as noted in HPI and below Physical Exam Vital Signs: Last Vital Signs Pulse 69 03/30/24 08:29 BP 119/61 03/30/24 08:29 Pulse Ox 98 03/30/24 08:29 Oxygen Delivery Method Room Air 03/30/24 08:29 BMI result Body Mass Index 32.1 General: Appears afebrile. No acute distress. Alert and oriented. Mood and affect appropriate. Follows and participates in conversation appropriately. Respiratory effort is unlabored. No cough. Able to transition from sit to stand unassisted. Ambulates with bilaterally normal heel strike and toe off. Eyes General: appearance normal, both eyes and all related structures Neck Neck: Yes no lymphadenopathy, Yes supple, No anterior neck swelling, No torticollis, No tracheal deviation, Yes no JVD and No prominent dorsocervical fat pad Resp Effort & Inspection: normal respiratory effort, able to speak in complete sentences, no cough and symmetric chest movement Back/Spine/Pelvis Cervical Spine: No collar present, loss of normal cervical lordosis, cervical muscular tenderness, pain with cervical ROM, No Cervical spine tenderness and No step off deformity Thoracic/Lumbar Spine: thoracic and lumbar spine normal to inspection, thoraco-lumbar ROM normal, No paraspinal muscle tenderness, No thoracic spinal tenderness and No lumbar spinal tenderness Psych Appearance: grossly normal and well kempt Mental Status: mental status grossly normal Speech and movement: Normal speech and movement present and Clear speech present Affect: normal affect and Anxious affect present Attitude: cooperative Thought process: Normal thought process present Thought content: Normal thought content present, suicidality (none), no hallucinations and No Depressive thoughts present Insight: Good insight present (Psych) Judgement: Good judgement present (Psych) Results Reviewed Results Reviewed: No imaging reports are available for review today. Assessment & Plan Assessment & Plan (1) Insomnia associated with menopause: Code(s): N95.1 - Menopausal and female climacteric states Category: Medical (2) Chronic, continuous use of opioids: Code(s): F11.90 - Opioid use, unspecified, uncomplicated Category: Medical (3) Pituitary adenoma: Code(s): D35.2 - Benign neoplasm of pituitary gland Category: Medical (4) Chronic pain: Code(s): G89.29 - Other chronic pain Category: Medical (5) Cervical spondylosis: Code(s): M47.812 - Spondylosis without myelopathy or radiculopathy, cervical region Category: Medical (6) Cervicalgia: Code(s): M54.2 - Cervicalgia Category: Medical (7) Muscle spasms of neck: Code(s): M62.838 - Other muscle spasm Category: Medical Plan Patient has shown accountability for her medication regimen and the pill count was accurate. The patient reported no noted side effects and she reports adequate pain relief. There is no evidence of misuse, abuse or diversion at this time. [employer] reviewed and consistent. Prescription sent for Percocet 10-325 mg TID with an advanced date of 04/12/24. Continue Dayvigo and tizanidine as needed. Will obtain Cervical spine imaging from [facility]. Continue HEP, NSAIDs, heat therapy, good posture, activity modifications, work ergonomic adjustments and adequate daily hydration. Script provided for formal PT to establish home exercise program for neck pain. All questions were answered and patient was in agreement of plan. Follow up in one month for a pill count and sooner if needed. Orders: Orders PT Evaluation and Treatment Today M47.812 - Spondylosis without myelopathy or radiculopathy, cervical region, M54.2 - Cervicalgia, M62.838 - Other muscle spasm Medications: Refilled oxycodone-acetaminophen 5-325 mg Partial Fill upon patient request. 2 tabs PO Q8H PRN 180 tabs 0RF pain 30 days D35.2 - Benign neoplasm of pituitary gland, F11.90 - Opioid use, unspecified, uncomplicated, G89.29 - Other chronic pain Coding Level of Care Code Est Pt Level 4 (35379) Diagnoses Insomnia associated with menopause N95.1 Chronic, continuous use of opioids F1.90 Pituitary adenoma D35.2 Chronic pain G89.29 Cervical spondylosis M47.812 Cervicalgia M54.2 Muscle spasms of neck M62.838
[2024-03-30 08:29] VITALS: BP 119/61; PULSE 69; O2SAT 98; BMI 32.1
== END 2024-03-30 08:48 | disposition home or self-care (01) ==
PROVIDERS: PCP Family Medicine; Visit Provider Nurse Practitioner Family
DX: G89.29 Other chronic pain (principal); N95.1 Menopausal and female climacteric states; Z79.891 Long term (current) use of opiate analgesic; D35.2 Benign neoplasm of pituitary gland; M47.812 Spondylosis without myelopathy or radiculopathy, cervical region; M54.2 Cervicalgia; M62.838 Other muscle spasm
CPT/HCPCS: 99214

== ENCOUNTER → 2024-03-30 08:21 | Outpatient (BNVA) | payer BC, SELFPAY | PROVIDERS: PCP Family Medicine; Visit Provider Nurse Practitioner Family ==

== ENCOUNTER 2024-04-28 08:20 | Outpatient (AMB) | payer BC, SELFPAY ==
--- NOTE | 2024-04-28 08:24 | MHC.OFFVIS ---
Vital Signs 04/28/24 08:37 Height 5 ft 4 in Weight 186 lb 8 oz BMI 32.0 BP 132/73 Blood Pressure Location Rt brachial Position Sitting Pulse 76 Pulse Source Pulse Oximeter Pulse Oximetry (%) 97 Oxygen Delivery Method Room Air Intake Visit Reasons: PILL COUNT Intake Note: Otilia comes in today for a pill count to oxycodone-acetaminophen, patient should have 84 tablets and presents with 84 tablets which she last took today 04/28/24 at 7:30am. Pain today 4/10. Special Service Representative Required: No Allergies amphetamine [From Mydayis] Allergy (Severe, Verified 04/28/24 08:37) Hypertension dextroamphetamine [From Mydayis] Allergy (Severe, Verified 04/28/24 08:37) Hypertension HPI Comments Details: Patient presents today for a pill count. She is supposed to have #84 pills in her possession and presents with #84 pills. This demonstrates a responsible attitude in regards to the medication regimen. Patient reports adequate analgesia with no noted side effects. Rates pain at 4/10. Patient denies any fever, chills, shortness of breaths, chest pain or tightness, visual disturbances, weakness, constipation, sedation, nausea, dizziness or urinary retention. Patient reports good tolerance with tizanidine for neck pain with stiffness and spasms without any side effects. She is awaiting to be scheduled for physical therapy. We are also awaiting for cervical spine xray report from [facility]. [facility] Medical History Obesity (BMI 30-39.9) Menopause syndrome Insomnia associated with menopause Diabetes Chronic pain Pituitary adenoma Surgical History H/O breast augmentation Family History Mother Carcinoid tumor Diabetes Hypertension High cholesterol Father Heart disease Social History Alcohol intake: current Alcohol intake frequency: does not drink Patient Tobacco Use Status: Former Tobacco user Review of Systems Const All systems reviewed & are unremarkable except as noted in HPI and below Physical Exam General: Appears afebrile. Alert and oriented. Mood and affect appropriate. Follows and participates in conversation appropriately. Respiratory effort is unlabored. No cough. Able to transition from sit to stand unassisted. Ambulates with bilaterally normal heel strike and toe off. Neck Neck: Yes no lymphadenopathy, Yes supple, No anterior neck swelling, Yes no JVD and No prominent dorsocervical fat pad Resp Effort & Inspection: normal respiratory effort, able to speak in complete sentences, no cough and symmetric chest movement General: Yes no CVA tenderness Back/Spine/Pelvis Back: no CVA tenderness Cervical Spine: No collar present, loss of normal cervical lordosis, cervical muscular tenderness, pain with cervical ROM and No Cervical spine tenderness Thoracic/Lumbar Spine: thoracic and lumbar spine normal to inspection, No Thoracic/lumbar spine scar(s), thoraco-lumbar ROM normal, No paraspinal muscle tenderness, No thoracic spinal tenderness and No lumbar spinal tenderness Extrem General: Yes capillary refill normal, Yes no clubbing, cyanosis or edema and Yes no calf tenderness Psych Appearance: grossly normal and well kempt Mental Status: mental status grossly normal Speech and movement: Normal speech and movement present and Clear speech present Affect: normal affect Attitude: cooperative Thought process: Normal thought process present Thought content: Normal thought content present, suicidality (none), no hallucinations and No Depressive thoughts present Insight: Good insight present (Psych) Judgement: Good judgement present (Psych) Results Reviewed Results Reviewed: No imaging reports are available for review today. Assessment & Plan Assessment & Plan (1) Insomnia associated with menopause: Code(s): N95.1 - Menopausal and female climacteric states Category: Medical (2) Chronic, continuous use of opioids: Code(s): F11.90 - Opioid use, unspecified, uncomplicated Category: Medical (3) Pituitary adenoma: Code(s): D35.2 - Benign neoplasm of pituitary gland Category: Medical (4) Cervical spondylosis: Code(s): M47.812 - Spondylosis without myelopathy or radiculopathy, cervical region Category: Medical (5) Cervicalgia: Code(s): M54.2 - Cervicalgia Category: Medical (6) Muscle spasms of neck: Code(s): M62.838 - Other muscle spasm Category: Medical Plan Patient has shown accountability for her medication regimen and the pill count was accurate. The patient reported no noted side effects and she reports adequate pain relief. There is no evidence of misuse, abuse or diversion at this time. [employer] reviewed and consistent. Prescription sent for Percocet 10-325 mg TID with an advanced date of 05/12/24. Continue Dayvigo and tizanidine as needed. Will resubmit medical release request to [facility] for cervical spine imaging. Continue HEP, NSAIDs, heat therapy, good posture, activity modifications, work ergonomic adjustments and adequate daily hydration. [facility] Core PT contact information provided to patient today to schedule PT evaluation and treatment sessions for neck pain. All questions were answered and patient was in agreement of plan. Follow up in one month for a pill count and sooner if needed. Medications: New tizanidine 2 mg PO TID 30 days PRN 90 tabs 3RF muscle spasticity M47.812 - Spondylosis without myelopathy or radiculopathy, cervical region, M54.2 - Cervicalgia, M62.838 - Other muscle spasm Refilled oxycodone-acetaminophen 5-325 mg Partial Fill upon patient request. 2 tabs PO Q8H 30 days PRN 180 tabs 0RF pain D35.2 - Benign neoplasm of pituitary gland, F11.90 - Opioid use, unspecified, uncomplicated, G89.29 - Other chronic pain Coding Level of Care Code Est Pt Level 4 (24566) Diagnoses Insomnia associated with menopause N95.1 Chronic, continuous use of opioids F1.90 Pituitary adenoma D35.2 Cervical spondylosis M47.812 Cervicalgia M54.2 Muscle spasms of neck M62.838
[2024-04-28 08:37] VITALS: BP 132/73; PULSE 76; O2SAT 97; BMI 32.0
== END 2024-04-28 08:46 | disposition home or self-care (01) ==
PROVIDERS: PCP Family Medicine; Visit Provider Nurse Practitioner Family
DX: M54.2 Cervicalgia (principal); M47.812 Spondylosis without myelopathy or radiculopathy, cervical region; M62.838 Other muscle spasm; Z79.891 Long term (current) use of opiate analgesic; N95.1 Menopausal and female climacteric states; D35.2 Benign neoplasm of pituitary gland
CPT/HCPCS: 99214

== ENCOUNTER → 2024-04-28 08:20 | Outpatient (BNVA) | payer BC, SELFPAY | PROVIDERS: PCP Family Medicine; Visit Provider Nurse Practitioner Family ==

== ENCOUNTER 2024-05-25 08:16 | Outpatient (AMB) | payer BC, SELFPAY ==
--- NOTE | 2024-05-25 08:27 | A.OFFVIS_ITS ---
Vital Signs 05/25/24 08:37 Height 5 ft 4 in Weight 190 lb BMI 32.6 BP 137/74 Blood Pressure Location Rt brachial Position Sitting Pulse 60 Pulse Source Pulse Oximeter Pulse Oximetry (%) 99 Oxygen Delivery Method Room Air Intake Visit Reasons: Pill Count Intake Note: Otilia comes in today for a pill count to oxycodone-acertaminophen, patient should have 102 tablets and presents with 109 tablets which she last took today 05/25/24 at 5am. 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 She is supposed to have #102 pills in her possession and presents with #109 pills. This demonstrates a responsible attitude in regards to the medication regimen. Patient reports adequate analgesia with no noted side effects. Rates pain at 4/10. Patient denies any fever, chills, shortness of breaths, chest pain or tightness, visual disturbances, weakness, constipation, sedation, nausea, dizziness or urinary retention. Patient reports recent diagnosis of COPD and has started new inhalers per her Staff Physical Therapy Assistant Dr. Ramirez in [place], [place]. She is worried about mild weight gaining and potential terminal superintendent side effects with steroidal inhalers. Patient has joined gym 5x/week to decrease risk of osteoporosis and weight loss. She is interested in Nutritional referral to help her navigate weight loss journey. Patient has upcoming follow up with her PCP and will recheck A1C. [facility] Medical History (Updated 05/25/24 @ 09:12 by STEPHEN Plasencia) COPD (chronic obstructive pulmonary disease) Obesity (BMI 30-39.9) Menopause syndrome Insomnia associated with menopause Diabetes Chronic pain Pituitary adenoma Surgical History H/O breast augmentation Family History Mother Carcinoid tumor Diabetes Hypertension High cholesterol Father Heart disease Social History Alcohol intake: current Alcohol intake frequency: does not drink Patient Tobacco Use Status: Former Tobacco user Review of Systems Const All systems reviewed & are unremarkable except as noted in HPI and below Physical Exam Vital Signs: Last Vital Signs Pulse 60 05/25/24 08:37 BP 137/74 05/25/24 08:37 Pulse Ox 99 05/25/24 08:37 Oxygen Delivery Method Room Air 05/25/24 08:37 BMI result Body Mass Index 32.6 General: Appears afebrile. Alert and oriented. Mood and affect appropriate. Follows and participates in conversation appropriately. Respiratory effort is unlabored. No cough. Able to transition from sit to stand unassisted. Ambulates with bilaterally normal heel strike and toe off. Resp Effort & Inspection: normal respiratory effort, able to speak in complete sentences, no cough and symmetric chest movement Extrem General: Yes capillary refill normal, Yes no clubbing, cyanosis or edema and Yes no calf tenderness Psych Appearance: grossly normal and well kempt Mental Status: mental status grossly normal Speech and movement: Normal speech and movement present and Clear speech present Affect: normal affect Attitude: cooperative Thought process: Normal thought process present Thought content: Normal thought content present, suicidality (none), no hallucinations and No Depressive thoughts present Insight: Good insight present (Psych) Judgement: Good judgement present (Psych) Assessment & Plan Assessment & Plan (1) Chronic, continuous use of opioids: Code(s): F11.90 - Opioid use, unspecified, uncomplicated Category: Medical (2) Pituitary adenoma: Code(s): D35.2 - Benign neoplasm of pituitary gland Category: Medical (3) Cervical spondylosis: Code(s): M47.812 - Spondylosis without myelopathy or radiculopathy, cervical region Category: Medical (4) Cervicalgia: Code(s): M54.2 - Cervicalgia Category: Medical (5) Obesity (BMI 30-39.9): Code(s): E66.9 - Obesity, unspecified Category: Medical Plan Patient has shown accountability for her medication regimen and the pill count was accurate. The patient reported no noted side effects and she reports adequate pain relief. There is no evidence of misuse, abuse or diversion at this time. [employer] reviewed and consistent. Prescription sent for Percocet 10-325 mg TID with an advanced date of 06/11/24. Continue daily physical activity, adequate hydration, relaxation and deep breathing exercises, weight optimization, and good posture. Referral placed for Nutritional Consultation per patient's request. All questions were answered and patient was in agreement of plan. Follow up in one month for a pill count and sooner if needed. Orders: Referrals Medical Nutrition Therapy Referral E11.9 - Type 2 diabetes mellitus without complications, E66.9 - Obesity, unspecified Medications: Refilled oxycodone-acetaminophen 5-325 mg Partial Fill upon patient request. 2 tabs PO Q8H 30 days PRN 180 tabs 0RF pain D35.2 - Benign neoplasm of pituitary gland, F11.90 - Opioid use, unspecified, uncomplicated, G89.29 - Other chronic pain Coding Level of Care Code Est Pt Level 4 (26271) Diagnoses Chronic, continuous use of opioids F11.90 Pituitary adenoma D35.2 Cervical spondylosis M47.812 Cervicalgia M54.2 Obesity (BMI 30-39.9) E66.9
[2024-05-25 08:37] VITALS: BP 137/74; PULSE 60; O2SAT 99; BMI 32.6
== END 2024-05-25 08:55 | disposition home or self-care (01) ==
PROVIDERS: PCP Family Medicine; Visit Provider Nurse Practitioner Family
DX: M47.812 Spondylosis without myelopathy or radiculopathy, cervical region (principal); M54.2 Cervicalgia; D35.2 Benign neoplasm of pituitary gland; Z79.891 Long term (current) use of opiate analgesic; E66.9 Obesity, unspecified
CPT/HCPCS: 99214

== ENCOUNTER → 2024-05-25 08:16 | Outpatient (BNVA) | payer BC, SELFPAY | PROVIDERS: PCP Family Medicine; Visit Provider Nurse Practitioner Family ==

== ENCOUNTER 2024-06-27 08:15 | Outpatient (AMB) | payer BC, SELFPAY ==
--- NOTE | 2024-06-27 08:22 | MHC.OFFVIS ---
Vital Signs 06/27/24 08:29 Height 5 ft 4 in Weight 189 lb 8 oz BMI 32.5 BP 131/68 Blood Pressure Location Lt brachial Position Sitting Pulse 56 Pulse Source Pulse Oximeter Pulse Oximetry (%) 98 Oxygen Delivery Method Room Air Intake Visit Reasons: PILL COUNT Intake Note: Otilia comes in today for a pill count to oxycodone-acetaminophen, patient should have 90 tablets and presents with 92 tablets which she last took today 06/27/24 at 8am. 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 She is supposed to have #90 pills in her possession and presents with #92 pills. This demonstrates a responsible attitude in regards to the medication regimen. Patient reports adequate analgesia with no noted side effects. Rates pain at 4/10. Patient denies any fever, chills, shortness of breaths, chest pain or tightness, visual disturbances, weakness, constipation, sedation, nausea, dizziness or urinary retention. Patient has joined gym 5-7x/week to decrease risk of osteoporosis and weight loss. She also has pending Nutritional referral to help her navigate weight loss journey. [facility] Medical History COPD (chronic obstructive pulmonary disease) Obesity (BMI 30-39.9) Menopause syndrome Insomnia associated with menopause Diabetes Chronic pain Pituitary adenoma Surgical History H/O breast augmentation Family History Mother Carcinoid tumor Diabetes Hypertension High cholesterol Father Heart disease Social History Alcohol intake: current Alcohol intake frequency: does not drink Patient Tobacco Use Status: Former Tobacco user Review of Systems Const All systems reviewed & are unremarkable except as noted in HPI and below Physical Exam Vital Signs: Last Vital Signs Pulse 56 06/27/24 08:29 BP 131/68 06/27/24 08:29 Pulse Ox 98 06/27/24 08:29 Oxygen Delivery Method Room Air 06/27/24 08:29 BMI result Body Mass Index 32.5 General: Appears afebrile. Alert and oriented. Mood and affect appropriate. Follows and participates in conversation appropriately. Respiratory effort is unlabored. No cough. Able to transition from sit to stand unassisted. Ambulates with bilaterally normal heel strike and toe off. Psych Appearance: grossly normal and well kempt Mental Status: mental status grossly normal Speech and movement: Normal speech and movement present and Clear speech present Affect: normal affect Attitude: cooperative Thought process: Normal thought process present Thought content: Normal thought content present, suicidality (none), no hallucinations and No Depressive thoughts present Insight: Good insight present (Psych) Judgement: Good judgement present (Psych) Assessment & Plan Assessment & Plan (1) Chronic, continuous use of opioids: Code(s): F11.90 - Opioid use, unspecified, uncomplicated Category: Medical (2) Pituitary adenoma: Code(s): D35.2 - Benign neoplasm of pituitary gland Category: Medical (3) Cervical spondylosis: Code(s): M47.812 - Spondylosis without myelopathy or radiculopathy, cervical region Category: Medical (4) Cervicalgia: Code(s): M54.2 - Cervicalgia Category: Medical (5) Obesity (BMI 30-39.9): Code(s): E66.9 - Obesity, unspecified Category: Medical Plan Patient has shown accountability for her medication regimen and the pill count was accurate. The patient reported no noted side effects and she reports adequate pain relief. There is no evidence of misuse, abuse or diversion at this time. [employer] reviewed and consistent. Prescription sent for Percocet 10-325 mg TID with an advanced date of 07/11/24. Continue daily physical activity, adequate hydration, relaxation and deep breathing exercises, weight optimization, and good posture. She recently joined gym 7 days a week for cardio and 5 days a week for weight training. All questions were answered and patient was in agreement of plan. Follow up in one month for a pill count and sooner if needed. Medications: Refilled oxycodone-acetaminophen 5-325 mg Partial Fill upon patient request. 2 tabs PO Q8H PRN 180 tabs 0RF pain 30 days D35.2 - Benign neoplasm of pituitary gland, F11.90 - Opioid use, unspecified, uncomplicated, G89.29 - Other chronic pain Discontinued tizanidine Discontinued Reason: Patient no longer taking 2 mg PO TID 30 days PRN 90 tabs 3RF muscle spasticity M47.812 - Spondylosis without myelopathy or radiculopathy, cervical region, M54.2 - Cervicalgia, M62.838 - Other muscle spasm Coding Level of Care Code Est Pt Level 4 (80340) Diagnoses Chronic, continuous use of opioids . Pituitary adenoma D35.2 Cervical spondylosis M47.812 Cervicalgia M54.2 Obesity (BMI 30-39.9) E66.9
[2024-06-27 08:29] VITALS: BP 131/68; PULSE 56; O2SAT 98; BMI 32.5
== END 2024-06-27 08:47 | disposition home or self-care (01) ==
PROVIDERS: PCP Family Medicine; Visit Provider Nurse Practitioner Family
DX: D35.2 Benign neoplasm of pituitary gland (principal); M47.812 Spondylosis without myelopathy or radiculopathy, cervical region; M54.2 Cervicalgia; Z79.891 Long term (current) use of opiate analgesic; E66.9 Obesity, unspecified
CPT/HCPCS: 99214

== ENCOUNTER → 2024-06-27 08:15 | Outpatient (BNVA) | payer BC, SELFPAY | PROVIDERS: PCP Family Medicine; Visit Provider Nurse Practitioner Family ==

== ENCOUNTER 2024-08-01 08:18 | Outpatient (AMB) | payer BC, SELFPAY ==
--- NOTE | 2024-08-01 08:18 | MHC.OFFVIS ---
Vital Signs 08/01/24 08:29 Height 5 ft 4 in Weight 189 lb 9 oz BMI 32.5 BP 127/82 Blood Pressure Location Rt brachial Position Sitting Pulse 63 Pulse Source Pulse Oximeter Pulse Oximetry (%) 98 Oxygen Delivery Method Room Air Intake Visit Reasons: Pill Count Intake Note: Otilia comes in for a pill count to oxycodone-acetaminophen, patient should have 60 tablets and presents with 61 tablets which she last took 1/2 tablet today 08/01/24 at 5:30am. Pain today 01/22 Retail Key Holder Required: No Accompanied by: Self / Same As Patient Allergies amphetamine [From Mydayis] Allergy (Severe, Verified 08/01/24 08:28) Hypertension dextroamphetamine [From Mydayis] Allergy (Severe, Verified 08/01/24 08:28) Hypertension HPI Comments Details: Patient presents today for a pill count. She is supposed to have #60 pills in her possession and presents with #61 pills. This demonstrates a responsible attitude in regards to the medication regimen. Patient reports adequate analgesia with no noted side effects. Rates pain at 10. Patient denies any fever, chills, shortness of breaths, chest pain or tightness, visual disturbances, weakness, constipation, sedation, nausea, dizziness or urinary retention. Patient continues daily physical activity and gym sessions to decrease risk of osteoporosis and weight loss. Patient reports her insurance did not approve Nutritional referral and would like to see our providers at [facility]. [facility] Medical History COPD (chronic obstructive pulmonary disease) Obesity (BMI 30-39.9) Menopause syndrome Insomnia associated with menopause Diabetes Chronic pain Pituitary adenoma Surgical History H/O breast augmentation Family History Mother Carcinoid tumor Diabetes Hypertension High cholesterol Father Heart disease Social History Alcohol intake: current Alcohol intake frequency: does not drink Patient Tobacco Use Status: Former Tobacco user Review of Systems Const All systems reviewed & are unremarkable except as noted in HPI and below Physical Exam Vital Signs: Last Vital Signs Pulse 63 08/01/24 08:29 BP 127/82 08/01/24 08:29 Pulse Ox 98 08/01/24 08:29 Oxygen Delivery Method Room Air 08/01/24 08:29 BMI result Body Mass Index 32.5 General: Appears afebrile. No acute distress. Alert and oriented. Mood and affect appropriate. Follows and participates in conversation appropriately. Respiratory effort is unlabored. No cough. Able to transition from sit to stand unassisted. Ambulates with bilaterally normal heel strike and toe off. Psych Appearance: grossly normal and well kempt Mental Status: mental status grossly normal Speech and movement: Normal speech and movement present and Clear speech present Affect: normal affect Attitude: cooperative Thought process: Normal thought process present Thought content: Normal thought content present, suicidality (none), no hallucinations and No Depressive thoughts present Insight: Good insight present (Psych) Judgement: Good judgement present (Psych) Results Reviewed Results Reviewed: No imaging reports are available for review today. Assessment & Plan Assessment & Plan (1) Obesity (BMI 30-39.9): Code(s): E66.9 - Obesity, unspecified Category: Medical (2) Chronic pain: Code(s): G89.29 - Other chronic pain Category: Medical (3) Chronic, continuous use of opioids: Code(s): F11.90 - Opioid use, unspecified, uncomplicated Category: Medical (4) Pituitary adenoma: Code(s): D35.2 - Benign neoplasm of pituitary gland Category: Medical (5) Cervical spondylosis: Code(s): M47.812 - Spondylosis without myelopathy or radiculopathy, cervical region Category: Medical (6) Cervicalgia: Code(s): M54.2 - Cervicalgia Category: Medical Plan Patient has shown accountability for her medication regimen and the pill count was accurate. The patient reported no noted side effects and she reports adequate pain relief. There is no evidence of misuse, abuse or diversion at this time. MassPAT reviewed and consistent. Prescription sent for Percocet 10-325 mg TID with an advanced date of 08/11/24. Continue daily physical activity, gym sessions, adequate hydration, relaxation and deep breathing exercises, weight optimization, and good posture. Refferal placed to [facility] Management program per patient's request. All questions were answered and patient was in agreement of plan. Follow up in one month for a pill count and sooner if needed. Orders: Referrals Medical Weight Management Referral E66.9 - Obesity, unspecified, G89.29 - Other chronic pain Medications: Refilled oxycodone-acetaminophen 5-325 mg Partial Fill upon patient request. 2 tabs PO Q8H 30 days PRN 180 tabs 0RF pain D35.2 - Benign neoplasm of pituitary gland, F11.90 - Opioid use, unspecified, uncomplicated, G89.29 - Other chronic pain Coding Level of Care Code Est Pt Level 4 (06070) Complex EM visit Add On G2211 Diagnoses Obesity (BMI 30-39.9) E66.9 Chronic pain G89.29 Chronic, continuous use of opioids F11.90 Pituitary adenoma D35.2 Cervical spondylosis M47.812 Cervicalgia M54.2
[2024-08-01 08:29] VITALS: BP 127/82; PULSE 63; O2SAT 98; BMI 32.5
== END 2024-08-01 08:50 | disposition home or self-care (01) ==
PROVIDERS: PCP Family Medicine; Visit Provider Nurse Practitioner Family
DX: G89.29 Other chronic pain (principal); Z79.891 Long term (current) use of opiate analgesic; D35.2 Benign neoplasm of pituitary gland; M47.812 Spondylosis without myelopathy or radiculopathy, cervical region; M54.2 Cervicalgia
CPT/HCPCS: 99214

== ENCOUNTER → 2024-08-01 08:18 | Outpatient (BNVA) | payer BC, SELFPAY | PROVIDERS: PCP Family Medicine; Visit Provider Nurse Practitioner Family ==

== ENCOUNTER 2024-08-29 08:12 | Outpatient (AMB) | payer BC, SELFPAY ==
--- NOTE | 2024-08-29 08:24 | A.OFFVIS_ITS ---
Vital Signs 08/29/24 08:32 Height 5 ft 4 in Weight 189 lb 4 oz BMI 32.5 BP 146/70 H Blood Pressure Location Rt brachial Position Sitting Pulse 60 Pulse Source Pulse Oximeter Pulse Oximetry (%) 96 Oxygen Delivery Method Room Air Intake Visit Reasons: PILL COUNT Intake Note: Otilia comes in today for a pill count to oxycodone-acetaminophen, patient should have 72 tablets and presents with 72 tablets which she last took today 08/29/24 at 6am. 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 She is supposed to have #72 pills in her possession and presents with #72 pills. This demonstrates a responsible attitude in regards to the medication regimen. Patient reports adequate analgesia with no noted side effects. Rates pain at 10. Patient denies any fever, chills, shortness of breaths, chest pain or tightness, visual disturbances, weakness, constipation, sedation, nausea, dizziness or urinary retention. Patient continues daily physical activity and gym sessions for weight loss. Patient reports partial benefit with Dayvigo for insomnia associated with menopause. Reports chronic headaches. Patient is interested in Neurology evaluation for insomnia and headaches. [facility] Medical History (Updated 08/29/24 @ 08:47 by STEPHEN Plasencia) Chronic headaches COPD (chronic obstructive pulmonary disease) Obesity (BMI 30-39.9) Menopause syndrome Insomnia associated with menopause Diabetes Chronic pain Pituitary adenoma Surgical History H/O breast augmentation Family History Mother Carcinoid tumor Diabetes Hypertension High cholesterol Father Heart disease Social History Alcohol intake: current Alcohol intake frequency: does not drink Patient Tobacco Use Status: Former Tobacco user Review of Systems Const All systems reviewed & are unremarkable except as noted in HPI and below Physical Exam Vital Signs: Last Vital Signs Pulse 60 10/15/24 08:32 BP 146/70 H 10/15/24 08:32 Pulse Ox 96 08/29/24 08:32 Oxygen Delivery Method Room Air 08/29/24 08:32 BMI result Body Mass Index 32.5 General: Appears afebrile. No acute distress. Alert and oriented. Mood and affect appropriate. Follows and participates in conversation appropriately. Respiratory effort is unlabored. No cough. Able to transition from sit to stand unassisted. Ambulates with bilaterally normal heel strike and toe off. Eyes General: appearance normal, both eyes and all related structures Back/Spine/Pelvis Cervical Spine: cervical muscular tenderness, pain with cervical ROM and No Cervical spine tenderness Thoracic/Lumbar Spine: pain with thoraco-lumbar ROM, paraspinal muscle tenderness, No thoracic spinal tenderness and lumbar spinal tenderness (L4-S1) Psych Appearance: grossly normal and well kempt Mental Status: mental status grossly normal Speech and movement: Normal speech and movement present and Clear speech present Affect: normal affect Attitude: cooperative Thought process: Normal thought process present Thought content: Normal thought content present, suicidality (none), no hallucinations and No Depressive thoughts present Insight: Good insight present (Psych) Judgement: Good judgement present (Psych) Results Reviewed Results Reviewed: No imaging reports are available for review today. Assessment & Plan Assessment & Plan (1) Insomnia associated with menopause: Code(s): N95.1 - Menopausal and female climacteric states Category: Medical (2) Chronic headaches: Code(s): R51.9 - Headache, unspecified; G89.29 - Other chronic pain Category: Medical (3) Obesity (BMI 30-39.9): Code(s): E66.9 - Obesity, unspecified Category: Medical (4) Chronic pain: Code(s): G89.29 - Other chronic pain Category: Medical (5) Chronic, continuous use of opioids: Code(s): F11.90 - Opioid use, unspecified, uncomplicated Category: Medical (6) Pituitary adenoma: Code(s): D35.2 - Benign neoplasm of pituitary gland Category: Medical (7) Cervical spondylosis: Code(s): M47.812 - Spondylosis without myelopathy or radiculopathy, cervical region Category: Medical Plan Patient has shown accountability for her medication regimen and the pill count was accurate. The patient reported no noted side effects and she reports adequate pain relief. There is no evidence of misuse, abuse or diversion at this time. MassPAT reviewed and consistent. Prescription sent for Percocet 10-325 mg TID with an advanced date of 09/09/24. Continue daily physical activity, gym sessions, adequate hydration, relaxation and deep breathing exercises, weight optimization, and good posture. Referral placed to Neurology for insomnia and chronic headaches per patient's request. All questions were answered and patient was in agreement of plan. Follow up in o ne month for a pill count and sooner if needed. Orders: Referrals Neurology Referral G89.29 - Other chronic pain, N95.1 - Menopausal and female climacteric states, R51.9 - Headache, unspecified Medications: Refilled oxycodone-acetaminophen 5-325 mg Partial Fill upon patient request. 2 tabs PO Q8H PRN 180 tabs 0RF pain 30 days D35.2 - Benign neoplasm of pituitary gland, F11.90 - Opioid use, unspecified, uncomplicated, G89.29 - Other chronic pain Coding Level of Care Code Est Pt Level 4 (92001) Complex EM visit Add On G2211 Diagnoses Insomnia associated with menopause N95.1 Chronic headaches R51.9; G89.29 Obesity (BMI 30-39.9) E66.9 Chronic pain G89.29 Chronic, continuous use of opioids F11.90 Pituitary adenoma D35.2 Cervical spondylosis M47.812
[2024-08-29 08:32] VITALS: BP 146/70; PULSE 60; O2SAT 96; BMI 32.5
== END 2024-08-29 08:42 | disposition home or self-care (01) ==
PROVIDERS: PCP Family Medicine; Visit Provider Nurse Practitioner Family
DX: N95.1 Menopausal and female climacteric states (principal); R51.9 Headache, unspecified; G89.29 Other chronic pain; Z79.891 Long term (current) use of opiate analgesic; E66.9 Obesity, unspecified; D35.2 Benign neoplasm of pituitary gland; M47.812 Spondylosis without myelopathy or radiculopathy, cervical region
CPT/HCPCS: 99214

== ENCOUNTER → 2024-08-29 08:12 | Outpatient (BNVA) | payer BC, SELFPAY | PROVIDERS: PCP Family Medicine; Visit Provider Nurse Practitioner Family ==

== ENCOUNTER 2024-10-03 08:19 | Outpatient (AMB) | payer BC, SELFPAY ==
--- NOTE | 2024-10-03 08:22 | A.OFFVIS_ITS ---
Vital Signs 10/03/24 08:34 Height 5 ft 4 in Weight 188 lb BMI 32.3 BP 138/70 Blood Pressure Location Rt brachial Position Sitting Pulse 50 Pulse Source Pulse Oximeter Pulse Oximetry (%) 96 Oxygen Delivery Method Room Air Intake Visit Reasons: Pill Count/ random UDS Intake Note: Otilia comes in today for a pill count to oxycodone-acetaminophen, patient should have 36 tablets and presents with 36 tablets which she last took today 10/03/24 at 5am. Pain today 3.5/10 Patient will have a random UDS today, aware that she will need to go to the lab on the first floor of this building today 10/03/24 before 1pm. 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 She is supposed to have #36 pills in her possession and presents with #36 pills. This demonstrates a responsible attitude in regards to the medication regimen. Patient reports adequate analgesia with no noted side effects. Rates pain at 3.5/10. Patient denies any fever, chills, shortness of breaths, chest pain or tightness, visual disturbances, weakness, constipation, sedation, nausea, dizziness or urinary retention. She reports occasional dizziness and has noted her heart rate has been in 50's. Patient takes metoprolol XR 100 mg daily and has upcoming follow up with Cardiology next month. Patient is encouraged to call her Cardiology provider today. Patient continues daily physical activity and gym sessions for weight loss. She wakes 2 miles/day. Patient reports improved sleep with Dayvigo for insomnia associated with menopause. [facility] Medical History Chronic headaches COPD (chronic obstructive pulmonary disease) Obesity (BMI 30-39.9) Menopause syndrome Insomnia associated with menopause Diabetes Chronic pain Pituitary adenoma Surgical History H/O breast augmentation Family History Mother Carcinoid tumor Diabetes Hypertension High cholesterol Father Heart disease Social History Alcohol intake: current Alcohol intake frequency: does not drink Patient Tobacco Use Status: Former Tobacco user Review of Systems Const All systems reviewed & are unremarkable except as noted in HPI and below Physical Exam Vital Signs: Last Vital Signs Pulse 50 10/03/24 08:34 BP 138/70 10/03/24 08:34 Pulse Ox 96 10/03/24 08:34 Oxygen Delivery Method Room Air 10/03/24 08:34 BMI result Body Mass Index 32.3 General: Appears afebrile. No acute distress. Alert and oriented. Mood and affect appropriate. Follows and participates in conversation appropriately. Respiratory effort is unlabored. No cough. Able to transition from sit to stand unassisted. Ambulates with bilaterally normal heel strike and toe off. Eyes General: appearance normal, both eyes and all related structures Cardio Jugular venous distension: no JVD Rate: regular rate Rhythm: regular rhythm Peripheral pulses: Peripheral pulses 2+ throughout Back/Spine/Pelvis Cervical Spine: cervical muscular tenderness, pain with cervical ROM and No Cervical spine tenderness Thoracic/Lumbar Spine: pain with thoraco-lumbar ROM, paraspinal muscle tenderness, No thoracic spinal tenderness and lumbar spinal tenderness (L4-S1) Extrem General: Yes capillary refill normal, Yes no clubbing, cyanosis or edema and Yes no calf tenderness Psych Appearance: grossly normal and well kempt Mental Status: mental status grossly normal Speech and movement: Normal speech and movement present and Clear speech present Affect: normal affect Attitude: cooperative Thought process: Normal thought process present Thought content: Normal thought content present, suicidality (none), no hallucinations and No Depressive thoughts present Insight: Good insight present (Psych) Judgement: Good judgement present (Psych) Results Reviewed Results Reviewed: No imaging reports are available for review today. Assessment & Plan Assessment & Plan (1) Insomnia associated with menopause: Code(s): N95.1 - Menopausal and female climacteric states Category: Medical (2) Chronic headaches: Code(s): R51.9 - Headache, unspecified; G89.29 - Other chronic pain Category: Medical (3) Chronic pain: Code(s): G89.29 - Other chronic pain Category: Medical (4) Chronic, continuous use of opioids: Code(s): F11.90 - Opioid use, unspecified, uncomplicated Category: Medical (5) Pituitary adenoma: Code(s): D35.2 - Benign neoplasm of pituitary gland Category: Medical (6) Cervical spondylosis: Code(s): M47.812 - Spondylosis without myelopathy or radiculopathy, cervical region Category: Medical Plan Patient has shown accountability for her medication regimen and the pill count was accurate. The patient reported no noted side effects and she reports adequate pain relief. There is no evidence of misuse, abuse or diversion at this time. SustainationT reviewed and consistent. Prescription sent for Percocet 10-325 mg TID with an advanced date of 10/09/24. Patient has Narcan at home. Refill sent for Dayvigo. Continue daily physical activity, gym sessions, adequate hydration, relaxation and deep breathing exercises, weight optimization, and good posture. Patient encouraged to follow up with Cardiology today re: HR=50's, currently on metoprolol XR 100 mg daily, lisinopril 10 mg daily. Currently asymptomatic. All questions were answered and patient was in agreement of plan. Follow up in one month for a pill count and sooner if needed. Medications: Refilled oxycodone-acetaminophen 5-325 mg Partial Fill upon patient request. 2 tabs PO Q8H 30 days PRN 180 tabs 0RF pain D35.2 - Benign neoplasm of pituitary gland, F11.90 - Opioid use, unspecified, uncomplicated, G89.29 - Other chronic pain lemborexant (Dayvigo) 5 mg PO BEDTIME 30 days 30 tabs 2RF N95.1 - Menopausal and female climacteric states Coding Level of Care Code Est Pt Level 4 (00003) Complex EM visit Add On G2211 Diagnoses Insomnia associated with menopause N95.1 Chronic headaches R51.9; G89.29 Chronic pain G89.29 Chronic, continuous use of opioids F11.90 Pituitary adenoma D35.2 Cervical spondylosis M47.812
[2024-10-03 08:34] VITALS: BP 138/70; PULSE 50; O2SAT 96; BMI 32.3
== END 2024-10-03 08:51 | disposition home or self-care (01) ==
PROVIDERS: PCP Family Medicine; Visit Provider Nurse Practitioner Family
DX: G89.29 Other chronic pain (principal); N95.1 Menopausal and female climacteric states; R51.9 Headache, unspecified; Z79.891 Long term (current) use of opiate analgesic; D35.2 Benign neoplasm of pituitary gland; M47.812 Spondylosis without myelopathy or radiculopathy, cervical region
CPT/HCPCS: 99214

== ENCOUNTER 2024-11-03 08:50 | Outpatient (AMB) | payer BC, SELFPAY ==
--- OUTSIDE RECORDS SUMMARY | 2024-11-03 09:00 | XMS_ITS ---
Author Name [facility] Organization Unknown History of Medication Use Medication Directions Dispensed Refills Start Date End Date Stat metoPROLOL SUCCINATE (TOPROL-XL) 50 MG 24 hr tablet Take 2 tablets (100 mg total) by mouth daily. 10/15/2024 9 active lisinopril (PRINIVIL,ZeSTRIL) 20 MG tablet Take 1 tablet (20 mg total) by mouth daily. 10/15/2024 9 active fluticasone-vilantero l (Breo Ellipta) 100-25 MCG/ACT inhaler Inhale 1 puff daily. 07/14/2024 aborted umeclidinium-vilanter ol (ANORO ELLIPTA) 62.5-25 MCG/ACT inhaler Inhale 1 puff daily. 07/14/2024 active albuterol (PROVENTIL HFA; VENTOLIN HFA) 108 (90 Base) MCG/ACT inhaler Inhale 2 puffs 4 times daily (every 6 hours) as needed for wheezing. 07/14/2024 active albuterol (PROVENTIL) (0.083%) 2.5 mg/3 mL nebulizer solution 2.5 mg 2.5 mg, Nebulization, Once, On Amberly 04/13/24 at 1430, For 1 dose, To be given during pft's, Albuterol or Duoneb Indication: Other (use comment) 04/16/2024 completed tiZANidine (ZANAFLEX) 2 MG tablet TAKE 1 TABLET BY MOUTH NEEDED AT BEDTIME FOR 28 DAYS, FOR MUSCLE SPASMS 03/23/2024 active PreviDent 5000 Enamel Protect 1.1-5 % Gel PLEASE SEE ATTACHED FOR DETAILED DIRECTIONS 02/25/2024 active Cholecalciferol (D3-1000) 25 MCG (1000 UT) capsule Take by mouth. 02/24/2024 act deborah diphenhydrAMINE (BENADRYL) 25 mg capsule Take 75 mg by mouth every night at bedtime. 02/24/2024 active rosuvastatin (CRESTOR) tablet 10 mg Take 10 mg by mouth daily. 02/24/2024 active oxyCODONE-acetaminoph en (PERCOCET) 10-325 MG per tablet Take 1 tablet by mouth 3 (three) times a day. 02/24/2024 active metoprolol tartrate (LOPRESSOR) 100 MG tablet Take by mouth 2 (two) times a day. 02/24/2024 active Probiotic Product (PROBIOTIC DAILY PO) Take 1 tablet by mouth daily. 02/24/2024 active vitamin B-12 (CYANOCOBALAMIN) 100 MCG tablet Take 50 mcg by mouth daily. 02/24/2024 active Lemborexant 5 MG Tab Take 1-2 tabs PO once daily at bedtime as needed for insomnia 06/17/2023 active tacrolimus (PROTOPIC) 0.1 % ointment APPLY TO SPECIFIC AREAS TWICE A DAY NEEDED 03/13/2023 active Cyanocobalamin (B-12 PO) Take 100 mg by mouth every other day. 03/13/2023 active oxyCODONE-acetaminoph en (PERCOCET) 5-325 mg per tablet Take 2 tablets by mouth 3 times daily (every 8 hours) as needed. for pain 06/17/2023 active oxyCODONE-acetaminoph en (ROXICET,PERCOCET) 5-325 MG/5ML solution Take by mouth every 4 (four) hours as needed. 09/23/2022 active diphenhydrAMINE HCl (BENADRYL PO) Take 1 tablet by mouth nightly. 06/17/2023 aborted amphetamine-dextroamp hetamine (ADDERALL XR) 30 MG 24 hr capsule Take 30 mg by mouth every morning. 09/23/2022 active cholecalciferol (CHOLECALCIFEROL) 125 MCG (5000 UT) capsule Take 5,000 Units by mouth. 03/13/2023 active triamcinolone (KENALOG) 0.1 % cream MIX ENTIRE CONTENTS, 80 GM WITH A JAR OF CERAVE CREAM AND APPLY EVERY DAY AFTER BATH 03/13/2023 active metoPROLOL SUCCINATE (TOPROL-XL) 100 MG 24 hr tablet TAKE 1 TABLET BY MOUTH EVERY DAY 09/23/2022 active oxyCODONE-acetaminoph en (PERCOCET) 10-325 mg per tablet TAKE 1 TABLET BY MOUTH 3 TIMES A DAY NEEDED FOR SEVERE PAIN 03/13/2023 active FIBER ADULT GUMMIES PO Take by mouth. 09/23/2022 active lisinopril (PRINIVIL,ZeSTRIL) 10 MG tablet Take 1 tablet (10 mg total) by mouth daily. 01/12/2024 active amphetamine-dextroamp hetamine 3 bead (MYDAYIS) 25 MG 24 hr capsule Take 1 capsule (25 mg total) by mouth every morning. Max Daily Amount: 25 mg 03/13/2023 active rosuvastatin (CRESTOR) 10 MG tablet TAKE 1 TABLET BY MOUTH EVERY DAY 09/23/2022 active Problems Problem Status Onset Date Problem Type Date of Resolution Source Menopause active 2023-02-28 ProblemAct [facility] BMI 29.0-29.9,adult active 2018-08-16 ProblemAct [facility] Cervical cancer screening active 2018-08-16 ProblemAct [facility] Weight gain active 2023-02-28 ProblemAct [facility] Vitamin D deficiency active 2023-02-28 ProblemAct [facility] Attention deficit hyperactivity disorder (ADHD), predominantly inattentive type active 2023-02-28 ProblemAct [facility] IBS (irritable bowel syndrome) active 2023-02-28 ProblemAct [facility] Pituitary microadenoma active 2023-02-28 ProblemAct [facility] Obesity (BMI 30.0-34.9) active 2023-02-28 ProblemAct [facility] Insomnia active 2023-06-08 ProblemAct [facility] Anxiety active 2023-02-28 ProblemAct [facility] Chronic obstructive pulmonary disease active 2024-05-29 ProblemAct [facility] HLD (hyperlipidemia) active 2023-02-28 ProblemAct [facility] Primary hypertension active 2023-02-28 ProblemAct [facility] Change in bowel habits active 2019-04-14 ProblemAct [facility] Nicotine dependence active 2023-02-28 ProblemAct [facility] Breast cancer screening active 2018-08-16 ProblemAct [facility] Encounter for routine checking of intrauterine contraceptive device (IUD) active 2018-08-16 ProblemAct [facility] Encounter for screening mammogram for malignant neoplasm of breast active EncounterDiagnosisAct [facility] Encounter for IUD removal and reinsertion active 2018-09-06 ProblemAct [facility] Prediabetes active 2023-02-28 ProblemAct [facility] Migraine headache active 2023-02-28 ProblemAct [facility] Immunizations Vaccine Date Source Lot Number Status Tdap 05/17/2017 [facility] completed
--- NOTE | 2024-11-03 09:01 | A.OFFVIS_ITS ---
Vital Signs 11/03/24 09:02 Height 5 ft 4 in Weight 187 lb 4 oz BMI 32.1 BP 142/67 H Blood Pressure Location Lt brachial Position Sitting Pulse 60 Pulse Source Pulse Oximeter Pulse Oximetry (%) 96 Oxygen Delivery Method Room Air Intake Visit Reasons: Pill Count Intake Note: Otilia comes in today for a pill count to oxycodone-acetaminophen. Patient should have 30 tablets and presents with 30 tablets which she last took today 11/03/24 at 8am. Pain today 6 Snuff Container Inspector Required: No Accompanied by: Self / Same As Patient Allergies amphetamine [From Mydayis] Allergy (Severe, Verified 11/03/24 09:03) Hypertension dextroamphetamine [From Mydayis] Allergy (Severe, Verified 11/03/24 09:03) Hypertension HPI Comments Details: Patient presents today for a pill count. She is supposed to have #30 pills in her possession and presents with #30 pills. This demonstrates a responsible attitude in regards to the medication regimen. Patient reports reasonable analgesia with no noted side effects. Rates pain at 6/10. Patient denies any fever, chills, shortness of breaths, chest pain or tightness, visual disturbances, weakness, constipation, sedation, nausea, dizziness or urinary retention. She reports occasional dizziness and fluctuating blood pressure. She reports chronic fatigue and difficulty loosing weight. Patient has been following up with her Cardiology and reports her BP medications are being adjusted. Denies any recent cough, cold, infection, fever or other significant changes in medical history since last office visit. [facility] Medical History Chronic headaches COPD (chronic obstructive pulmonary disease) Obesity (BMI 30-39.9) Menopause syndrome Insomnia associated with menopause Diabetes Chronic pain Pituitary adenoma Surgical History H/O breast augmentation Family History Mother Carcinoid tumor Diabetes Hypertension High cholesterol Father Heart disease Social History Alcohol intake: current Alcohol intake frequency: does not drink Patient Tobacco Use Status: Former Tobacco user Review of Systems Const All systems reviewed & are unremarkable except as noted in HPI and below Physical Exam Vital Signs: Last Vital Signs Pulse 60 11/03/24 09:02 BP 142/67 H 11/03/24 09:02 Pulse Ox 96 11/03/24 09:02 Oxygen Delivery Method Room Air 11/03/24 09:02 BMI result Body Mass Index 32.1 General: Appears afebrile. No acute distress. Alert and oriented. Mood and affect appropriate. Follows and participates in conversation appropriately. Respiratory effort is unlabored. No cough. Able to transition from sit to stand unassisted. Ambulates with bilaterally normal heel strike and toe off. Eyes General: appearance normal, both eyes and all related structures Cardio Jugular venous distension: no JVD Rate: regular rate Rhythm: regular rhythm Peripheral pulses: Peripheral pulses 2+ throughout Back/Spine/Pelvis Cervical Spine: cervical muscular tenderness, pain with cervical ROM and No Cervical spine tenderness Thoracic/Lumbar Spine: pain with thoraco-lumbar ROM, paraspinal muscle tenderness, No thoracic spinal tenderness and lumbar spinal tenderness (L4-S1) Extrem General: Yes capillary refill normal, Yes no clubbing, cyanosis or edema and Yes no calf tenderness Psych Appearance: grossly normal and well kempt Mental Status: mental status grossly normal Speech and movement: Normal speech and movement present and Clear speech present Affect: normal affect Attitude: cooperative Thought process: Normal thought process present Thought content: Normal thought content present, suicidality (none), no hallucinations and No Depressive thoughts present Insight: Good insight present (Psych) Judgement: Good judgement present (Psych) Results Reviewed Results Reviewed: No imaging reports are available for review today. Assessment & Plan Assessment & Plan (1) Insomnia associated with menopause: Code(s): N95.1 - Menopausal and female climacteric states Category: Medical (2) Chronic headaches: Code(s): R51.9 - Headache, unspecified; G89.29 - Other chronic pain Category: Medical (3) Chronic pain: Code(s): G89.29 - Other chronic pain Category: Medical (4) Chronic, continuous use of opioids: Code(s): F11.90 - Opioid use, unspecified, uncomplicated Category: Medical (5) Pituitary adenoma: Code(s): D35.2 - Benign neoplasm of pituitary gland Category: Medical (6) Cervical spondylosis: Code(s): M47.812 - Spondylosis without myelopathy or radiculopathy, cervical region Category: Medical Plan Patient has shown accountability for her medication regimen and the pill count was accurate. The patient reported no noted side effects and she reports adequate pain relief. There is no evidence of misuse, abuse or diversion at this time. MassPAT reviewed and consistent. Prescription sent for Percocet 10-325 mg TID with an advanced date of 11/06/24. Patient has Narcan at home. Refill sent for Dayvigo. Continue daily physical activity, gym sessions, adequate hydration, relaxation and deep breathing exercises, weight optimization, and good posture. All questions were answered and patient was in agreement of plan. Follow up in one month for a pill count and sooner if needed. Medications: Refilled oxycodone-acetaminophen 5-325 mg Partial Fill upon patient request. 2 tabs PO Q8H 30 days PRN 180 tabs 0RF pain D35.2 - Benign neoplasm of pituitary gland, F11.90 - Opioid use, unspecified, uncomplicated, G89.29 - Other chronic pain lemborexant (Dayvigo) 5 mg PO BEDTIME 30 days 30 tabs 2RF N95.1 - Menopausal and female climacteric states Coding Level of Care Code Est Pt Level 4 (13052) Complex EM visit Add On G2211 Diagnoses Insomnia associated with menopause N95.1 Chronic headaches R51.9; G89.29 Chronic pain G89.29 Chronic, continuous use of opioids F11.90 Pituitary adenoma D35.2 Cervical spondylosis M47.812
[2024-11-03 09:02] VITALS: BP 142/67; PULSE 60; O2SAT 96; BMI 32.1
== END 2024-11-03 09:15 | disposition home or self-care (01) ==
PROVIDERS: PCP Family Medicine; Visit Provider Nurse Practitioner Family
DX: G89.29 Other chronic pain (principal); N95.1 Menopausal and female climacteric states; R51.9 Headache, unspecified; Z79.891 Long term (current) use of opiate analgesic; D35.2 Benign neoplasm of pituitary gland; M47.812 Spondylosis without myelopathy or radiculopathy, cervical region
CPT/HCPCS: 99214

== ENCOUNTER → 2024-11-03 08:50 | Outpatient (BNVA) | payer BC, SELFPAY | PROVIDERS: PCP Family Medicine; Visit Provider Nurse Practitioner Family ==

== ENCOUNTER 2025-01-04 08:19 | Outpatient (AMB) | payer BC, SELFPAY ==
--- NOTE | 2025-01-04 08:28 | A.OFFVIS_ITS ---
Vital Signs 01/04/25 08:35 Height 5 ft 4 in Weight 189 lb 6 oz BMI 32.5 BP 132/60 Blood Pressure Location Rt brachial Position Sitting Pulse 67 Pulse Source Pulse Oximeter Pulse Oximetry (%) 95 Oxygen Delivery Method Room Air Intake Visit Reasons: PILL COUNT Intake Note: Otilia comes in today for a pill count to oxycodone-acetaminophen, patient should have 6 tablets and presents with 6 tablets which she last took today 01/04/25 at 7am. Pain today 10 Brass Instrument Repair Technician Required: No Accompanied by: Self / Same As Patient Allergies amphetamine [From Mydayis] Allergy (Severe, Verified 01/04/25 08:36) Hypertension dextroamphetamine [From Mydayis] Allergy (Severe, Verified 01/04/25 08:36) Hypertension Medication List - Last Reconciled 01/04/25 by STEPHEN Plasencia albuterol sulfate 90 mcg/actuation 2 puffs inhalation Q6H PRN cholecalciferol (vitamin D3) 25 mcg PO DAILY ibuprofen (Advil) 400 mg PO Q8H lemborexant (Dayvigo) 5 mg PO BEDTIME 30 days lisinopril 20 mg PO DAILY mecobalamin (vitamin B12) 1,000 mcg PO DAILY metoprolol succinate ER mg PO naloxone 4 mg/actuation (Narcan) 4 mg intranasal Q3M PRN oxycodone-acetaminophen 5-325 mg 2 tabs PO Q8H PRN 30 days rosuvastatin 10 mg PO BEDTIME sodium fluoride-pot nitrate 1.1-5 % (PreviDent 5000 Enamel Protect) PO DAILY tacrolimus 0.1% topical BID PRN tiotropium-olodaterol 2.5-2.5 mcg/actuation (Stiolto Respimat) 2 puffs inhalation DAILY triamcinolone acetonide 0.1% appl topical DAILY HPI Comments Details: Patient presents today for a pill count. She is supposed to have #6 pills in her possession and presents with #6 pills. This demonstrates a responsible attitude in regards to the medication regimen. Patient reports reasonable analgesia with no noted side effects. Rates pain at 4/10. Patient denies any fever, chills, shortness of breaths, chest pain or tightness, visual disturbances, weakness, constipation, sedation, nausea, dizziness or urinary retention. Denies any recent cough, cold, infection, fever or other significant changes in medical history since last office visit. [facility] Medical History Chronic headaches COPD (chronic obstructive pulmonary disease) Obesity (BMI 30-39.9) Menopause syndrome Insomnia associated with menopause Diabetes Chronic pain Pituitary adenoma Surgical History H/O breast augmentation Family History Mother Carcinoid tumor Diabetes Hypertension High cholesterol Father Heart disease Social History Alcohol intake: current Alcohol intake frequency: does not drink Patient Tobacco Use Status: Former Tobacco user Review of Systems Const All systems reviewed & are unremarkable except as noted in HPI and below Physical Exam Vital Signs: Last Vital Signs Pulse 67 01/04/25 08:35 BP 132/60 01/04/25 08:35 Pulse Ox 95 01/04/25 08:35 Oxygen Delivery Method Room Air 01/04/25 08:35 BMI result Body Mass Index 32.5 General: Appears afebrile. Alert and oriented. Mood and affect appropriate. Follows and participates in conversation appropriately. Respiratory effort is unlabored. No cough. Able to transition from sit to stand unassisted. Ambulates with bilaterally normal heel strike and toe off. Eyes General: appearance normal, both eyes and all related structures Cardio Jugular venous distension: no JVD Rate: regular rate Rhythm: regular rhythm Peripheral pulses: Peripheral pulses 2+ throughout Back/Spine/Pelvis Cervical Spine: cervical muscular tenderness, pain with cervical ROM and No Cervical spine tenderness Thoracic/Lumbar Spine: pain with thoraco-lumbar ROM, paraspinal muscle tenderness, No thoracic spinal tenderness and lumbar spinal tenderness (L4-S1) Extrem General: Yes capillary refill normal, Yes no clubbing, cyanosis or edema and Yes no calf tenderness Psych Appearance: grossly normal Mental Status: mental status grossly normal Speech and movement: Normal speech and movement present and Clear speech present Affect: normal affect Attitude: cooperative Thought process: Normal thought process present Thought content: Normal thought content present, suicidality (none), no hallucinations and No Depressive thoughts present Insight: Good insight present (Psych) Judgement: Good judgement present (Psych) Results Reviewed Results Reviewed: No imaging reports are available for review today. Assessment & Plan Assessment & Plan (1) Insomnia associated with menopause: Code(s): N95.1 - Menopausal and female climacteric states Category: Medical (2) Chronic headaches: Code(s): R51.9 - Headache, unspecified; G89.29 - Other chronic pain Category: Medical (3) Chronic pain: Code(s): G89.29 - Other chronic pain Category: Medical (4) Chronic, continuous use of opioids: Code(s): F11.90 - Opioid use, unspecified, uncomplicated Category: Medical (5) Pituitary adenoma: Code(s): D35.2 - Benign neoplasm of pituitary gland Category: Medical (6) Cervical spondylosis: Code(s): M47.812 - Spondylosis without myelopathy or radiculopathy, cervical region Category: Medical Plan Patient has shown accountability for her medication regimen and the pill count was accurate. The patient reported no noted side effects and she reports adequate pain relief. There is no evidence of misuse, abuse or diversion at this time. [employer] reviewed and consistent. Prescription sent for Percocet 10-325 mg TID will be sent today. Patient has Narcan at home. Continue Dayvigo. Continue daily physical activity, gym sessions, adequate hydration, relaxation and deep breathing exercises, weight optimization, and good posture. All questions were answered and patient was in agreement of plan. Follow up in one month for a pill count and sooner if needed. Medications: Refilled oxycodone-acetaminophen 5-325 mg Partial Fill upon patient request. 2 tabs PO Q8H 30 days PRN 180 tabs 0RF pain D35.2 - Benign neoplasm of pituitary gland, F11.90 - Opioid use, unspecified, uncomplicated, G89.29 - Other chronic pain Coding Level of Care Code Est Pt Level 4 (87504) Complex EM visit Add On G2211 Diagnoses Insomnia associated with menopause N95.1 Chronic headaches R51.9; G89.29 Chronic pain G89.29 Chronic, continuous use of opioids .90 Pituitary adenoma D35.2 Cervical spondylosis M47.812
[2025-01-04 08:35] VITALS: BP 132/60; PULSE 67; O2SAT 95; BMI 32.5
--- OUTSIDE RECORDS SUMMARY | 2025-01-04 08:35 | XMS_ITS | Clinical Summary ---
Author Organization [facility] Address [address] [place] [address] Care Team Providers Care Animal Care Assistant Name Role Phone Alethea Chandler MD Primary Care Provider [phone] Allergies Active Allergy Reactions Criticality Noted Date Comments Bee Venom Swelling Medium 04/14/2019 [place]ets Medications Medication Sig Dispensed Refills Start Date End Date Status metoprolol tartrate (LOPRESSOR) 100 MG tablet Take by mouth 2 (two) times a day. 0 Active rosuvastatin (CRESTOR) tablet 10 mg Take 10 mg by mouth daily. 0 Active oxyCODONE-acetaminophe n (PERCOCET) 10-325 MG per tablet Take 1 tablet by mouth 3 (three) times a day. 0 12/25/2016 Active Cholecalciferol (D3-1000) 25 MCG (1000 UT) capsule Take by mouth. 0 10/09/2020 Active vitamin B-12 (CYANOCOBALAMIN) 100 MCG tablet Take 50 mcg by mouth daily. 0 Active diphenhydrAMINE (BENADRYL) 25 mg capsule Take 75 mg by mouth every night at bedtime. 0 Active Probiotic Product (PROBIOTIC DAILY PO) Take 1 tablet by mouth daily. 0 Active Active Problems Problem Noted Date Diagnosed Date Encounter for IUD removal and reinsertion 2017 Encounter for gynecological examination without abnormal finding 08/16/2018 Cervical cancer screening 08/16/2018 Breast cancer screening 08/16/2018 BMI 29.0-29.9,adult 08/16/2018 Encounter for routine checki ng of intrauterine contraceptive device (IUD) 08/16/2018 Family History Medical History Relation Name Comments Cancer Mother Relation Name Status Comments Father Mother Alive Social History Tobacco Use Types Packs/Day Years Used Date Smoking Tobacco: Former Cigarettes Smokeless Tobacco: Never Alcohol Use Standard Drinks/Week Comments No 0 (1 standard drink = 0.6 oz pur e alcohol) Sex and Gender Information Value Date Recorded Sex Assigned at Female 11/03/2021 10:19 AM EST Gender Identity Female 09/07/2022 7:09 AM EDT Sexual Orientation Not on file Job Start Date Occupation Industry Not on file Not on file Not on file Last Filed Vital Signs Vital Sign Reading Time Taken Comments Blood Pressure 146/79 09/07/2022 9:17 AM EDT Pulse 75 09/07/2022 9:17 AM EDT Temperature 36.5 ??C (97.7 ??F) 09/07/2022 8:52 AM ED T Respiratory Rate 8 09/07/2022 9:17 AM EDT Oxygen Saturation 96% 09/07/2022 9:17 AM EDT Inhaled Oxygen Concentration - - Weight 83.9 kg (185 lb) 09/07/2022 7:25 AM EDT Height 162.6 cm (5' 4 ) 09/07/2022 7:25 AM EDT Body Mass Index 31.76 09/07/2022 7:25 AM EDT Plan of Treatment Health Maintenance Due Date Last Done Comments Hepatitis B Vaccines (1 of 3 - 3-dose series) 1970 Hepatitis C Screening 1970 Depression Screening 1982 BMI Counseling 1988 Preventative Health Evaluation 08/16/2019 08/16/2018 Shingrix-Zoster Vaccine (1 o f 2) 2020 Cervical Cancer Screening (Pap Smear) 08/16/2021 08/16/2018 COVID-19 Vaccine (4 - 2023-2 5 season) 2024 08/23/2021, 02/08/2021, 01/17/2021 Influenza Vaccine (#1) 2024 Breast Cancer Screening (Mammogram) 02/16/2026 02/17/2024, 12/22/2022, 11/03/2021 DTap / Tdap / Td (2 - Td or Tdap) 05/17/2027 05/17/2017 Colon Cancer Screening (Colonoscopy) 09/07/2032 09/07/2022 Pneumococcal Vaccine Aged Out No long er eligible based on patient's age to complete this topic RSV Ped < 20 months Aged Out No longe r eligible based on patient's age to complete this topic Advance Directives For more information, please contact: [phone] Latest Code Status on File Code Status Date Activated Date Inactivated Comments Full Code 09/07/2022 9:42 AM 09/07/2022 4:24 PM Thi s code status was ascertained in the following way: discussion with patient . Care Teams Animal Care Assistant Relationship Specialty Start Date End Date Alethea Chandler MD [address] [facility] [place] [address] PCP - General Family Medicine 02/07/24
--- OUTSIDE RECORDS SUMMARY | 2025-01-04 08:35 | XMS_ITS | Encounter Summary ---
Author Organization [facility] Address [address] [place] [address] Care Team Providers Care Coal Pulverizing Operator Name Role Phone Suha Oliveros MD Primary Care Provider Angie Reza Primary Care Provider [phone] Encounter Details Date Type Department Care Team (Late st Contact Info) Description 09/29/[address] [facility] [address] [phone] Ermias More MD [address] [place] [address] Social History Tobacco Use Types Packs/Day Years Used Date Smoking Tobacco: Every Day Smokeless Tobacco: Never Alcohol Use Standard Drinks/Week Comments Not Currently 0 (1 standard drink = 0.6 oz pur e alcohol) Sex and Gender Information Value Date Recorded Sex Assigned at Female 04/13/2024 2:06 PM EDT Gender Identity Female 04/13/2024 2:06 PM EDT Sexual Orientation Heterosexual (straight) 04/13 2:06 PM EDT documented as of this encounter Plan of Treatment Upcoming Encounters Date Type Department Care Team (Late st Contact Info) Description 01/10/2025 8:15 AM EST Office Visit [facility] Department of Internal Medicine [place] [address] [place] [phone] Angie Reza PA [address] [place] [address] 02/23/2025 9:00 AM EDT Office Visit [facility] Department Of Transformation Consultant [place] [address] [place] [phone] Russ Zapata MD [address] [place] [id number] 06/25/2025 8:00 AM EDT Office Visit [facility] [place] [address] [place] [address] Russ Ramirez MD [address] [place] [address] 07/02/2025 8:15 AM EDT Office Visit [facility] Department of Cardiology [place] [address] [place] [address] Shahriar Ryan MD [address] [place] [phone] documented as of this encounter Visit Diagnoses Not on filedocumented in this encounter Care Teams Coal Pulverizing Operator Relationship Specialty Start Date End Date Suha Oliveros MD [address] [place] [address] PCP - General 04/06/19 06/07/23 Angie Reza PA [address] [place] [address] PCP - General Internal Medicine 06/08/23 documented as of this encounter
--- OUTSIDE RECORDS SUMMARY | 2025-01-04 08:35 | XMS_ITS | Encounter Summary ---
Author Organization [facility] Address [address] [place] [address] Care Team Providers Care Supervisor Bonding Name Role Phone Suha Oliveros MD Primary Care Provider [phone] Angie Reza Primary Care Provider [phone] Encounter Details Date Type Department Care Team (Late st Contact Info) Description 02/11/2023 Scanned Document [facility] Department of Internal Medicine [place] [address] [place] [phone] Angie Reza PA [address] [place] [address] Social History Tobacco Use Types Packs/Day Years Used Date Smoking Tobacco: Former Cigarettes Q uit: 2021 Smokeless Tobacco: Never Alcohol Use Standard Drinks/Week Comments Not Currently 0 (1 standard drink = 0.6 oz pur e alcohol) Sex and Gender Information Value Date Recorded Sex Assigned at Female 04/13/2024 2:06 PM EDT Gender Identity Female 04/13/2024 2:06 PM EDT Sexual Orientation Heterosexual (straight) 04/13 2:06 PM EDT COVID-19 Exposure Response Date Recorded In the last 10 days, have yo u been in contact with someone who was confirmed or suspected to have Coronavirus/COVID-19? No / Unsure 02/02/2023 3:11 PM EDT documented as of this encounter Plan of Treatment Upcoming Encounters Date Type Department Care Team (Late st Contact Info) Description 01/10/2025 8:15 AM EST Office Visit [facility] Department of Internal Medicine [place] [address] [place] [phone] Angie Reza PA [address] [place] [address] 02/23/2025 9:00 AM EDT Office Visit [facility] Department Of Legal Paraprofessional [place] [address] [place] [phone] Russ Zapata MD [address] [place] [phone] 06/25/2025 8:00 AM EDT Office Visit [facility] Pulmonary [place] [address] [place] [phone] Russ Ramirez MD [address] [place] [address] 07/02/2025 8:15 AM EDT Office Visit [facility] Department of Cardiology [place] [address] [place] [phone] Shahriar Ryan MD [address] [place] [address] [place], [place] [id number] documented as of this encounter Visit Diagnoses Not on filedocumented in this encounter Care Teams Supervisor Bonding Relationship Specialty Start Date End Date Suha Oliveros MD [address] [place] [address] PCP - General 04/06/19 06/07/23 Angie Reza PA [address] [place] [address] PCP - General Internal Medicine 06/08/23 documented as of this encounter
--- OUTSIDE RECORDS SUMMARY | 2025-01-04 08:35 | XMS_ITS | Encounter Summary ---
Author Organization [facility] Address [address] [place] [address] Care Team Providers Care Foundry Supervisor Name Role Phone Suha Oliveros MD Primary Care Provider [phone] Angie Reza Primary Care Provider [phone] Encounter Details Date Type Department Care Team (Late st Contact Info) Description 02/11/2023 Scanned Document [facility] Department of Internal Medicine [place] [address] [place] [phone] nAgie Reza PA [address] [place] [address] Social History Tobacco Use Types [...] Description 01/10/2025 8:15 AM EST Office Visit [facility] Department of Internal Medicine [place] [address] [place] [phone] Angie Reza PA [address] [place] [address] 02/23/2025 9:00 AM EDT Office Visit [facility] Department Of Silviculturist [place] [address] [place] [phone] Russ Zapata MD [address] [place] [phone] 06/25/2025 8:00 AM EDT Office Visit [facility] Pulmonary [place] [address] [place] [phone] Russ Ramirez MD [address] [place] [address] 07/02/2025 8:15 AM EDT Office Visit [facility] Department of Cardiology [place] [address] [place] [phone] Shahriar Ryan MD [address] [place] [address] [place], [place] [phone] documented as of this encounter Visit Diagnoses Not on filedocumented in this encounter Care Teams Foundry Supervisor Relationship Specialty Start Date End Date Suha Oliveros MD [address] [place] [address] PCP - General 04/06/19 06/07/23 Angie Reza PA [address] [place] [address] PCP - General Internal Medicine 06/08/23 documented as of this encounter
--- OUTSIDE RECORDS SUMMARY | 2025-01-04 08:36 | XMS_ITS | Encounter Summary ---
Author Organization [facility] Address [address] [place] [address] Care Team Providers Care Director Of Home Care Hospice Name Role Phone Angie Reza Primary Care Provider [phone]- [phone] Encounter Details Date Type Department Care Team (Latest Contact Info) Description 12/11/2024 8:00 AM EST Office Visit [facility] Department of Cardiology [place] [address] [place] [address] Prince Lomas PA [address] [place] [phone] Sinus tachycardia (Primary Dx); Primary hypertension; Hyperlipidemia, unspecified hyperlipidemia type; Obesity (BMI 30.0-34.9) Social History Tobacco Use Types Packs/Day Years Used Date Smoking Tobacco: Former Cigarettes 1 38 1 984 - 2022 Smokeless Tobacco: Never Tobacco Cessation:Counseling Given: Not Answered Alcohol Use Standard Drinks/Week Comments Not Currently 0 (1 standard drink = 0.6 oz pur e alcohol) Sex and Gender Information Value Date Recorded Sex Assigned at Female 04/13/2024 2:06 PM EDT Gender Identity Female 04/13/2024 2:06 PM EDT Sexual Orientation Heterosexual (straight) 04/13 2:06 PM EDT documented as of this encounter Last Filed Vital Signs Vital Sign Reading Time Taken Comments Blood Pressure 130/80 12/11/2024 8:00 AM EST Pulse - - Temperature - - Respiratory Rate - - Oxygen Saturation - - Inhaled Oxygen Concentration - - Weight 86.2 kg (190 lb) 12/11/2024 8:00 AM EST Height 162.6 cm (5' 4 ) 12/11/2024 8:00 AM EST Body Mass Index 32.61 12/11/2024 8:00 AM EST documented in this encounter Progress Notes * THIEN Cabrera - 12/11/2024 8:13 AM EST Images from the original note were not included. [address] [facility] [id number] Date: 12/11/2024 Patient Name: Otilia Woodruff Date of : 1970 Patient Care Team Patient Care Team: THIEN Lundberg as PCP - General (Internal Medicine) Reason for Visit Follow up, HTN HPI 54yo female with history of HTN, HLD, prediabetes, obesity, anxiety, former smoker, here for followup. She was getting elevated blood pressure at home a few months ago so we increased her lisinopril. She now sometimes gets lightheaded for which she eats a pickle and it improves quickly. She is limiting her NSAID use. Says tylenol does not work. Denies any chest pain or dyspnea on exertion. She had acalcium score in October 2023 that was 0. Assessment & Plan HLD: - lipids great 06/07 - Continue statin - Calcium score 0. Did have incidental 4mm pulmonary nodule that is being followed by PCP/transmission operator. Tobacco use: - quit smoking. Well done. Obesity: - Weight loss strategies discussed HTN: - Well controlled today. Seems to fluctuate and gets low blood pressures sometimes. It improves with hydration and a little extra salt in diet. Continue lisinopril 20mg and metoprolol - Limit NSAID use Follow up in 6 months or sooner PRN Spent 30+ minutes [id number] with patient for documentation, review, and education. Plan/ Orders Orders Placed This Encounter Procedures ECG 12 lead Order Specific Question: Release to Patient Answer: Immediate [1] Past Medical History Past Medical History: Diagnosis Date Brain tumor (benign) (HCC) Chronic headaches Past Surgical History Past Surgical History: Procedure Laterality Date AUGMENTATION BREAST ENDOSCOPY Family History Family History Problem Relation Age of Onset Colon polyps Mother Hypertension Mother Alcohol abuse Father Heart attack Father Hypertension Sister Alcohol abuse Sister Clotting disorder Maternal Grandmother Social History Social History Tobacco Use Smoking status: Former Current packs/day: 0.00 Average packs/day: 1 pack/day for 38.0 years (38.0 ttl pk-yrs) Types: Cigarettes Start date: 1983 Quit date: 2021 Years since quittin.0 Smokeless tobacco: Never Vaping Use Vaping status: Never Used Substance Use Topics Alcohol use: Not Currently Drug use: Not Currently Allergies Allergies Allergen Reactions Bee Venom Swelling Yellow Jackets Medications Current Outpatient Medications Medication Instructions albuterol (PROVENTIL HFA; VENTOLIN HFA) 108 (90 Base) MCG/ACT inhaler 2 puffs, Inhalation, Every 6 hours PRN cholecalciferol (CHOLECALCIFEROL) 5,000 Units, Oral Cyanocobalamin (B-12 PO) 100 mg, Oral, Every other day FIBER ADULT GUMMIES PO Oral fluticasone-vilanterol (BREO ELLIPTA) 100-25 MCG/ACT inhaler 1 puff, Inhalation, Daily Lemborexant 5 MG Tab Take 1-2 tabs PO once daily at bedtime as needed for insomnia lisinopril (PRINIVIL,ZESTRIL) 20 mg, Oral, Daily metoPROLOL SUCCINATE (TOPROL-XL) 100 mg, Oral, Daily oxyCODONE-acetaminophen (PERCOCET) 5-325 mg per tablet 2 tablets, Oral, Every 8 hours PRN, for pain PreviDent 5000 Enamel Protect 1.1-5 % Gel PLEASE SEE ATTACHED FOR DETAILED DIRECTIONS Probiotic Tablet Delayed Response Oral rosuvastatin (CRESTOR) 10 mg, Oral, Daily tiZANidine (ZANAFLEX) 2 MG tablet TAKE 1 TABLET BY MOUTH NEEDED AT BEDTIME FOR 28 DAYS, FOR MUSCLE SPASMS triamcinolone (KENALOG) 0.1 % cream MIX ENTIRE CONTENTS, 80 GM WITH A JAR OF CERAVE CREAM AND APPLYEVERY DAY AFTER BATH ROS Review of Systems Constitutional: Negative for chills and fever. Cardiovascular: Negative for chest pain, dyspnea on exertion, leg swelling, palpitations and syncope. Respiratory: Negative for cough and shortness of breath. Musculoskeletal: Negative for back pain and falls. Gastrointestinal: Negative for abdominal pain, constipation, diarrhea, nausea and vomiting. Genitourinary: Negative for frequency and hematuria. Neurological: Negative for dizziness, headaches, light-headedness, numbness and paresthesias. Psychiatric/Behavioral: Negative for altered mental status. The patient is not nervous/anxious. All other systems reviewed and are negative. Vitals Wt Readings from Last 3 Encounters: 12/11/24 86.2 kg (190 lb) 07/11/24 85.7 kg (189 lb) 05/29/24 86.2 kg (190 lb) Temp Readings from Last 3 Encounters: 03/20/24 97.3 ??F (36.3 ??C) BP Readings from Last 3 Encounters: 12/11/24 130/80 07/11/24 104/70 05/29/24 132/84 Pulse Readings from Last 3 Encounters: 07/11/24 60 05/29/24 67 04/17/24 64 Body mass index is 32.61 kg/m??. Physical Exam Physical Exam Vitals reviewed. Constitutional: General: She is not in acute distress. Appearance: Normal appearance. She is well-developed. She is obese. She is not diaphoretic. HENT: Head: Normocephalic and atraumatic. Eyes: Extraocular Movements: Extraocular movements intact. Pupils: Pupils are equal, round, and reactive to light. Neck: Vascular: No carotid bruit. Cardiovascular: Rate and Rhythm: Normal rate and regular rhythm. Heart sounds: No murmur heard. Pulmonary: Effort: Pulmonary effort is normal. No respiratory distress. Breath sounds: Normal breath sounds. Abdominal: General: Bowel sounds are normal. There is no distension. Palpations: Abdomen is soft. Tenderness: There is no abdominal tenderness. Musculoskeletal: General: No swelling. Normal range of motion. Skin: General: Skin is warm and dry. Findings: No erythema. Neurological: General: No focal deficit present. Mental Status: She is alert and oriented to person, place, and time. Cranial Nerves: No cranial nerve deficit. Psychiatric: Mood and Affect: Mood normal. Thought Content: Thought content normal. Results Notable labs are: Lab Results Component Value Date WBC 5.87 06/08/2024 HGB 12.6 06/08/2024 HCT 41.1 06/08/2024 MCV 94.9 06/08/2024 PLT 273.0 06/08/2024 Lab Results Component Value Date NA 143 06/08/2024 K 4.7 06/08/2024 CL 105 06/08/2024 CO2 26 06/08/2024 BUN 14 06/08/2024 GLUC 99 06/08/2024 CALCIUM 9.4 06/08/2024 ANIONGAP 12 06/08/2024 No results found for: CHOL , TRIG , HDL , ESTLDL , LDLCALC Lab Results Component Value Date ALKPHOS 83 06/08/2024 AST 22 06/08/2024 ALT 25 06/08/2024 PROT 6.6 06/08/2024 ALBUMIN 4.5 06/08/2024 No results found for: TNI No results found for: PROBNP No results found for: INR , PROTIME Lab Results Component Value Date HGBA1C 5.7 (H) 06/08/2024 Lab Results Component Value Date TSH 0.790 06/08/2024 AVRIL Archive for reference only CT This order has been auto-finalized and does not contain a result. Consider removing the Comprehensive Echo and ordering a limited Echo. Most recent Echo Impression results: Date of Result: No results found for this or any previous visit. No results found for this or any previous visit (from the past 8760 hour(s)). Electronically signed by THIEN Joyce 12/11/2024 documented in this encounter Plan of Treatment Upcoming Encounters Date Type Department Care Team (Late st Contact Info) Description 01/10/2025 8:15 AM EST Office Visit [facility] Department of Internal Medicine [place] [address] [place] [phone] Angie Reza PA [address] [place] [address] 02/23/2025 9:00 AM EDT Office Visit [facility] Department Of Inspector Electromechanical [place] [address] [place] [phone] Russ Zapata MD [address] [place] [address] 06/25/2025 8:00 AM EDT Office Visit [facility] Pulmonary [place] [address] [place] [phone] Russ Ramirez MD [address] [facility] [address] [place] [address] 07/02/2025 8:15 AM EDT Office Visit [facility] Department of Cardiology [place] [address] [place] [address] Shahriar Ryan MD [address] [place] [address] documented as of this encounter Procedures Procedure Name Priority Date/Time Associated Diagnosis Comments ECG 12-LEAD Routine 12/11/2024 8:05 AM EST Sinus tachycardia Primary hypertension documented in this encounter Results * ECG 12 lead (12/11/2024 8:05 AM EST) 12/11/2024 8:05 AM EST Prince Abebe NEUMANN ECG ORDERABLES documented in this encounter Visit Diagnoses Diagnosis Sinus tachycardia- Primary Other specified cardiac dysrhythmias Primary hypertension Unspecified essential hypertension Hyperlipidemia, unspecified hyperlipidemia type Obesity (BMI 30.0-34.9) documented in this encounter Care Teams Director Of Home Care Hospice Relationship Specialty Start Date End Date Angie Reza PA [address] [place] [address] PCP - General Internal Medicine 06/08/23 documented as of this encounter
--- OUTSIDE RECORDS SUMMARY | 2025-01-04 08:36 | XMS_ITS | Encounter Summary ---
Author Organization [facility] Address [address] [place] [address] Care Team Providers Care Drug And Alcohol Counselor Name Role Phone Angie Reza Primary Care Provider +1- [phone] Encounter Details Date Type Department Care Team (Latest Contact Info) Description 12/26/2024 Travel Social History Tobacco Use Types Packs/Day Years Used Date Smoking Tobacco: Former Cigarettes 1 38 1 984 - 2021 Smokeless Tobacco: Never Alcohol Use Standard [...] Description 01/10/2025 8:15 AM EST Office Visit [facility] Department of Internal Medicine [place] [address] [place] [phone] Angie Reza PA [address] [place], [place] [address] 02/23/2025 9:00 AM EDT Office Visit [facility] Department Of Hotel Service Manager [place] [address] [place] [phone] Russ Zapata MD [address] [place] [address] 06/25/2025 8:00 AM EDT Office Visit [facility] Pulmonary [place] [address] [place] [address] Russ Ramirez MD [address] [place] [address] 07/02/2025 8:15 AM EDT Office Visit [facility] Department of Cardiology [place] [address] [facility] [address] [place] [address] Shahriar Ryan MD [address] [address] documented as of this encounter Visit Diagnoses Not on filedocumented in this encounter Care Teams Drug And Alcohol Counselor Relationship Specialty Start Date End Date Angie Reza PA [address] [facility] [address] [place] [address] PCP - General Internal Medicine 06/08/23 documented as of this encounter
--- OUTSIDE RECORDS SUMMARY | 2025-01-04 08:36 | XMS_ITS | Clinical Summary ---
Author Organization [facility] Address [address] [place] [address] Care Team Providers Care Animal Control Licensing Worker Name Role Phone Angie Reza Primary Care Provider +1- [phone] Allergies Active Allergy Reactions Criticality Noted Date Comments Bee Venom Swelling Medium 04/14/2019 Yellow Jackets Medications Medication Sig Dispensed Refills Start Date End Date Status Cyanocobalamin (B-12 PO) Take 100 mg by mouth every other day. Active triamcinolone (KENALOG) 0.1 % cream MIX ENTIRE CONTENTS, 80 GM WITH A JAR OF CERAVE CREAM AND APPLY EVERY DAY AFTER BATH 11/18/19 23 Active Probiotic Tablet Delayed Response Take by mouth. 08/24/20 22 Active cholecalciferol (CHOLECALCIFEROL) 125 MCG (5000 UT) capsule Take 1 capsule (5,000 Units total) by mouth. Active FIBER ADULT GUMMIES PO Take by mouth. Active oxyCODONE-acetaminophen (PERCOCET) 5-325 mg per tablet Take 2 tablets by mouth 3 times daily (every 8 hours) as needed. for pain 04/25/20 23 Active Lemborexant 5 MG TabIndications:Insomnia , unspecified type Take 1-2 tabs PO once daily at bedtime as needed for insomnia 30 tablet 3 05/05/20 23 Active PreviDent 5000 Enamel Protect 1.1-5 % Gel PLEASE SEE ATTACHED FOR DETAILED DIRECTIONS 12/21/19 24 Active tiZANidine (ZANAFLEX) 2 MG tablet TAKE 1 TABLET BY MOUTH NEEDED AT BEDTIME FOR 28 DAYS, FOR MUSCLE SPASMS 03/08/20 24 Active rosuvastatin (CRESTOR) 10 MG tabletIndications:Famil y history of familial hypercholesterolemia Take 1 tablet (10 mg total) by mouth daily. 90 tablet 3 04/17/20 24 025 Active albuterol (PROVENTIL HFA; VENTOLIN HFA) 108 (90 Base) MCG/ACT inhalerIndications:Ciga rette nicotine dependence in remission Inhale 2 puffs 4 times daily (every 6 hours) as needed for wheezing. 1 each 3 05/03/20 24 Active metoPROLOL SUCCINATE (TOPROL-XL) 50 MG 24 hr tabletIndications:Sinus tachycardia Take 2 tablets (100 mg total) by mouth daily. 60 tablet 11 10/03/20 24 Active Additional Information Patient taking differently: 50 mgOral Daily, Reported on 12/26/2024 lisinopril (PRINIVIL,ZeSTRIL) 20 MG tabletIndications:Prima ry hypertension Take 1 tablet (20 mg total) by mouth daily. 30 tablet 11 10/03/20 24 Active tiotropium-olodaterol (STIOLTO RESPIMAT) 2.5-2.5 mcg/inh inhalerIndications:Crew Caller bren obstructive pulmonary disease, unspecified COPD type (HCC) Inhale 2 puffs daily. 4 g 5 12/26/19 25 Active fluticasone-vilanterol (BREO ELLIPTA) 100-25 MCG/ACT inhalerIndications:Crew Caller bren obstructive pulmonary disease, unspecified COPD type (HCC) Inhale 1 puff daily. 60 each 5 09/21/20 24 Discontinued Active Problems Problem Noted Date Diagnosed Date Fatigue 12/26/2024 Snoring 12/26/2024 Chronic obstructive pulmonary disease 05/29/2024 Insomnia 06/08/2023 Pituitary microadenoma 02/28/2023 Anxiety 02/28/2023 02/28/2023 Attention deficit hyperactiv ity disorder (ADHD), predominantly inattentive type 02/28/2023 02/28/2023 Obesity (BMI 30.0-34.9) 02/28/2023 02/29/20 23 Assessment & Plan (03/11/2023 8:45 AM EDT): Weight loss is indicated HLD (hyperlipidemia) 02/28/2023 02/28/2023 Assessment & Plan (03/11/2023 8:56 AM EDT): Patient is concerned about triglycerides. Otherwise her lipids are satisfactory. I told her to take some [id number] fish oil. We will check lipids in 6 months Primary hypertension 02/28/2023 02/28/2023 Assessment & Plan (03/11/2023 8:45 AM EDT): Blood pressure is satisfactory on present regimen. IBS (irritable bowel syndrome) 02/28/2023 0 02/28/2023 Menopause 02/28/2023 02/28/2023 Migraine headache 02/28/2023 02/28/2023 Nicotine dependence 02/28/2023 02/28/2023 Prediabetes 02/28/2023 02/28/2023 Vitamin D deficiency 02/28/2023 02/28/2023 Weight gain 02/28/2023 02/28/2023 Change in bowel habits 04/14/2019 Assessment & Plan (04/14/2019 8:37 AM EDT): Intermittent episodes of change in bowel consistency: sticky, foul smelling, pencil-thin stools. Significant prior abx exposure but none in past 6 months. Does travel for work. If I had to guess, she has gut dysbiosis and we discussed this phenomenon at length today. There is no quick fix way to reset her gut felicity unfortunately but we discussed some strategies. It is also important to rule out more nefarious etiologies given her age and one episode of hematochezia. Plan: 1. Bacterial overgrowth testing- if positive, will do herbal tx. 2. Colonoscopy to rule out malignancy/IBD. 3. Daily togolese yogurt. 4. Lemon david tea. If measures unsuccessful, will have her meet with circular shear operator to do low FODMAPS diet. We can also consider empiric herbal tx even if SIBO testing negative. The indications, prep, alternatives and the procedure were thoroughly explained. There is no contraindication to colonoscopy. The potential risks including bleeding, infection, and perforation were also explained. All questions were answered and the patient verbalized understanding of the risks and benefits. Resolved Problems Problem Noted Date Diagnosed Date Resolved Date Screening for lung cancer 03/21/2024 Encounters Date Type Department Care Team Description 12/26/2024 9:00 AM EST Office Visit [facility] Pulmonary [place] [address] [place] [address] Russ Ramirez MD Chronic obstructive pulmonary disease, unspecified COPD type (HCC) (Primary Dx); Nicotine dependence in remission, unspecified nicotine product type; Fatigue, unspecified type; Snoring 12/26/2024 Travel 12/18/2024 9:15 AM EST Office Visit [facility] [place] [address] [facility] [place] [phone] Kirk Grullon MD Chronic tonsillitis (Primary Dx); Deviated nasal septum 12/11/2024 8:00 AM EST Office Visit [facility] Department of Cardiology [place] [address] [place] [phone] Prince Lomas PA Sinus tachycardia (Primary Dx); Primary hypertension; Hyperlipidemia, unspecified hyperlipidemia type; Obesity (BMI 30.0-34.9) 10/13/2024 Telephone [facility] Physicians Department of Cardiology [place] [address] [place] [address] [address] [place] [phone] Prince Lomas PA from Last 3 Months Immunizations Name Administration Dates Next Due Tdap 05/17/2017 Family History Medical History Relation Name Comments Alcohol abuse Father Heart attack Father Clotting disorder Maternal Grandmother Colon polyps Mother Hypertension Mother Alcohol abuse Sister Hypertension Sister Relation Name Status Comments Father Maternal Grandmother Mother Sister Social History Tobacco Use Types Packs/Day Years [...] Orientation Heterosexual (straight) 04/13 2:06 PM EDT Last Filed Vital Signs Vital Sign Reading Time Taken Comments Blood Pressure 110/80 12/26/2024 9:00 AM EST Pulse 67 12/26/2024 9:00 AM EST Temperature 36.4 ??C (97.6 ??F) 12/26/2024 9:00 AM ES T Respiratory Rate - - Oxygen Saturation 98% 12/26/2024 9:00 AM EST Inhaled Oxygen Concentration - - Weight 85.3 kg (188 lb) 12/26/2024 9:00 AM EST Height 162.6 cm (5' 4 ) 12/26/2024 9:00 AM EST Body Mass Index 32.27 12/26/2024 9:00 AM EST Plan of Treatment Upcoming Encounters Date Type Department Care Team (Late st Contact Info) Description 01/10/2025 8:15 AM EST Office Visit [facility] Department of Internal Medicine [place] [address] [place] [phone] Angie Reza PA [address] [facility] [place] [address] 02/23/2025 9:00 AM EDT Office Visit [facility] Department Of Yarn Hauler [place] [address] [phone] Russ Zapata MD [address] [place] [phone] 06/25/2025 8:00 AM EDT Office Visit [facility] Pulmonary [place] [address] [place] [address] Russ Ramirez MD [address] [place] [address] [place] [phone] 07/02/2025 8:15 AM EDT Office Visit [facility] Department of Cardiology [place] [address] [place] [phone] Shahriar Ryan MD [address] [address] Health Maintenance Due Date Last Done Comments Hepatitis C Virus Screening 1970 HIV Screening 1983 Hepatitis B Vaccines (1 of 3 - 19+ 3-dose series) 1989 Pneumococcal Vaccines 50+ (1 of 2 - PCV) 1989 Lung Cancer Screening (LDCT) 2020 Zoster (Shingles) Vaccine (1 of 2) 2020 Influenza Vaccine 06/15/2024 COVID-19 Vaccine (4 - 2023-2 5 season) 2024 08/23/2021, 02/08/2021, 01/17/2021 Mammogram 02/22/2026 02/23/2024, 05/2023, 11/03/2021 Pap Smear (Ages 21-65) 02/22/2027 , 01/20/2023, 01/11/2023, Additional history exists DTaP/Tdap/Td Vaccines (2 - T d or Tdap) 05/17/2027 05/17/2017 Colonoscopy 09/07/2032 09/07/2022 Chronic Controlled Substance Toxicology Screening Discontinued 05/29/2024 Chronic Controlled Substance User PDMP Review Discontinued 05/29/2024, 06/08/2023 Procedures Procedure Name Priority Date/Time Associated Diagnosis Comments ECG 12-LEAD Routine 12/11/2024 8:05 AM EST Sinus tachycardia Primary hypertension POCT DRUG SCREEN PANEL Routine 05/29/2024 7:24 AM EDT Insomnia, unspecified type THINPREP PAP TEST (VISUAL ASSOCIATE) Routine 02/23/2024 9:07 AM EDT Papanicolaou smear IMAGING BREAST/BX/MAMMO Routine 02/23/2024 from Last 3 Months or Most Recently Relevant to Health Maintenance Results * ECG 12 lead (12/11/2024 8:05 AM EST) 12/11/2024 8:05 AM EST Prince Abebe NEUMANN ECG ORDERABLES * POCT Rapid Drug Screen 11 Panel (05/29/2024 7:24 AM EDT) (AMP) Amphetamine POC N (CHASITY) Cocaine POC N (THC) Cannabidiol POC N (BZO) Benzodiazepines POC N (TCA) Tricyclics POC N (BAR) Barbiturates POC N (MDMA) Methamphetamine POC N (OPI) Morphine, Codeine, Hydromorphine, Hydrocodone, Heroin N (PCP) Phencyclidine POC N (OXY) Oxycodone, Hydrocodone POC P (PPX) Propoxyphene, POC Negative Negative Buprenorphine POC N Urine 05/29/2024 7:24 AM EDT Angie NEUMANN POINT OF CARE TEST ORDERABLES * ThinPrep Pap Test (Steam Table Associate) (02/23/2024 9:07 AM EDT) 02/23/2024 9:07 AM EDT Narrative [facility] - 02/25/2024 12:08 PM EDT To view the final report click the scan hyperlink below. Russ Zapata MD PATHOLOGY/CYTOLOGY ORDERABLES Performing Organization Address City/State/[facility] Co de Phone Number [facility] [address] * Imaging Breast/Bx/Mammo Result (02/23/2024) Anatomical Region Laterality Modality Other External Provider MD AARON CESPEDES from Last 3 Months or Most Recently Relevant to Health Maintenance Care Teams Animal Control Licensing Worker Relationship Specialty Start Date End Date Angie Reza PA [address] [place] [address] PCP - General Internal Medicine 06/08/23
--- OUTSIDE RECORDS SUMMARY | 2025-01-04 08:36 | XMS_ITS | Encounter Summary ---
Author Organization [facility] Address [address] [place] [address] Care Team Providers Care Taper Machine Name Role Phone Angie Reza Primary Care Provider [phone]- [phone] Reason for Referral * (Routine) - Pending Review Specialty Diagnoses / Procedures Referred By Amber leon Referred To Contact Diagnoses Fatigue, unspecified type Snoring Procedures General sleep study Russ Ramirez MD [address] [place] [address] Referral ID Status Reason Start Date Expiration Date V isits Requested Visits Authorized [id number] Pending Review 12/26/2024 12/27/2025 1 1 * Diagnostic Imaging (Routine) - Pending Review Specialty Diagnoses / Procedures Referred By Amber leon Referred To Contact Diagnoses Chronic obstructive pulmonary disease, unspecified COPD type (HCC) Nicotine dependence in remission, unspecified nicotine product type Procedures CT Chest Low Dose Cancer Annual Screening Russ Ramirez MD [address] [place] [address] Referral ID Status Reason Start Date Expiration Date V isits Requested Visits Authorized [id number] Pending Review 12/26/2024 12/27/2025 1 1 Reason for Visit * Reason Comments COPD Follow up Encounter Details Date Type Department Care Team ([facility] st Contact Info) Description 12/26/2024 9:00 AM EST Office Visit [facility] Pulmonary [address] [phone] Russ Ramirez MD [address] [place] [address] Chronic obstructive pulmonary disease, unspecified COPD type (HCC) (Primary Dx); Nicotine dependence in remission, unspecified nicotine product type; Fatigue, unspecified type; Snoring Social History Tobacco Use Types Packs/Day Years Used Date Smoking Tobacco: Former Cigarettes 1 38 1 4 2021 Smokeless Tobacco: Never Alcohol Use Standard [...] Mass Index 32.27 12/26/2024 9:00 AM EST documented in this encounter Progress Notes * Russ Ramirez MD - 12/26/2024 9:10 AM EST Images from the original note were not included. Division of Pulmonary, Critical Care, and Sleep Medicine [address] [place] [address], [address] [place] [id number] Pulmonary Consult Note Date: December 26, 2024 Name: Otilia Woodruff Referring MChris.: THIEN Lundberg Date of : 1970 Chief Complaint: Chief Complaint Patient presents with COPD Follow up HPI: Otilia Woodruff is a 54 y.o. year old female with a PMH significant for chronic tobacco abuse whopresents for evaluation of pulmonary nodules Calcium scoring CT: found to have an incidental pulmonary nodule [facility] CT chest 03/2024 No suspicious nodule recommendation for annual follow up Started on breo Has hoarseness but feels breathing is better. Still snoring Wakes up multiple times per night Does not feel well rested. Does nap every day. Nods off reading, watching tv. On the phone Present Medications: Current Outpatient Medications Medication Sig Dispense Refill albuterol (PROVENTIL HFA; VENTOLIN HFA) 108 (90 Base) MCG/ACT inhaler Inhale 2 puffs 4 times daily (every 6 hours) as needed for wheezing. 1 each 3 cholecalciferol (CHOLECALCIFEROL) 125 MCG (5000 UT) capsule Take 1 capsule (5,000 Units total) by mouth. Cyanocobalamin (B-12 PO) Take 100 mg by mouth every other day. FIBER ADULT GUMMIES PO Take by mouth. fluticasone-vilanterol (BREO ELLIPTA) 100-25 MCG/ACT inhaler Inhale 1 puff daily. 60 each 5 Lemborexant 5 MG Tab Take 1-2 tabs PO once daily at bedtime as needed for insomnia 30 tablet 3 lisinopril (PRINIVIL,ZeSTRIL) 20 MG tablet Take 1 tablet (20 mg total) by mouth daily. 30 tablet 11 metoPROLOL SUCCINATE (TOPROL-XL) 50 MG 24 hr tablet Take 2 tablets (100 mg total) by mouth daily. (Patient taking differently: Take 1 tablet (50 mg total) by mouth daily.) 60 tablet 11 oxyCODONE-acetaminophen (PERCOCET) 5-325 mg per tablet Take 2 tablets by mouth 3 times daily (every8 hours) as needed. for pain PreviDent 5000 Enamel Protect 1.1-5 % Gel PLEASE SEE ATTACHED FOR DETAILED DIRECTIONS Probiotic Tablet Delayed Response Take by mouth. rosuvastatin (CRESTOR) 10 MG tablet Take 1 tablet (10 mg total) by mouth daily. 90 tablet 3 triamcinolone (KENALOG) 0.1 % cream MIX ENTIRE CONTENTS, 80 GM WITH A JAR OF CERAVE CREAM AND APPLYEVERY DAY AFTER BATH tiZANidine (ZANAFLEX) 2 MG tablet TAKE 1 TABLET BY MOUTH NEEDED AT BEDTIME FOR 28 DAYS, FOR MUSCLE SPASMS No current facility-administered medications for this visit. Allergies: Bee venom Past Medical History: Past Medical History: Diagnosis Date Brain tumor (benign) (HCC) Chronic headaches Past Surgical History: Past Surgical History: Procedure Laterality Date AUGMENTATION BREAST ENDOSCOPY Family History: Family History Problem Relation Age of Onset Colon polyps Mother Hypertension Mother Alcohol abuse Father Heart attack Father Hypertension Sister Alcohol abuse Sister Clotting disorder Maternal Grandmother Social History: reports that she quit smoking about 3 years ago. Her smoking use included cigarettes. She started smoking about 41 years ago. She has a 38 pack-year smoking history. She has never used smokeless tobacco. She reports that she does not currently use alcohol. She reports that she does not currently use drugs. Smoking: reports that she quit smoking about 3 years ago. Her smoking use included cigarettes. She started smoking about 41 years ago. She has a 38 pack-year smoking history. She has never used smokeless tobacco. Review of Systems: Constitutional: negative for chills, fevers, night sweats and sweats Eyes: negative for visual disturbances Ears, nose, mouth, throat, and face: negative for nasal congestion, nasal discharge and sinus pain Respiratory: negative for dry cough, dyspnea on exertion, paroxysmal nocturnal dyspnea, productive cough, sputum and wheezing Cardiovascular: negative for chest pain, dyspnea, fatigue and lower extremity edema Gastrointestinal: negative for abdominal pain, diarrhea and nausea Integument/breast: negative for rash Hematologic/lymphatic: negative for lymphadenopathy and night sweats Neurological: negative for gait problems and weakness Behavioral/Psych: negative for behavior problems Vitals: 12/26/24 0900 BP: 110/80 Pulse: 67 Temp: 97.6 ??F (36.4 ??C) SpO2: 98% Weight: 85.3 kg (188 lb) Height: 1.626 m (5' 4 ) Exam: General: alert, appears stated age and cooperative Head: Normocephalic, without obvious abnormality, atraumatic Throat: lips, mucosa, and tongue normal; teeth and gums normal Neck: no adenopathy, no JVD and supple, symmetrical, trachea midline Lungs: clear to auscultation bilaterally Chest wall: no tenderness Heart: regular rate and rhythm, S1, S2 normal, no murmur, click, rub or gallop Abdomen: soft, non-tender; bowel sounds normal; no masses, no organomegaly Extremities: extremities normal, atraumatic, no cyanosis or edema Pulses: 2+ and symmetric Skin: Skin color, texture, turgor normal. No rashes or lesions Lymph nodes: Cervical, supraclavicular, and axillary nodes normal. Review of diagnostic tests Lab Results Component Value Date WBC 5.87 06/08/2024 HGB 12.6 06/08/2024 HCT 41.1 06/08/2024 MCV 94.9 06/08/2024 PLT 273.0 06/08/2024 Lab Results Component Value Date GLUC 99 06/08/2024 CALCIUM 9.4 06/08/2024 NA 143 06/08/2024 K 4.7 06/08/2024 CO2 26 06/08/2024 CL 105 06/08/2024 BUN 14 06/08/2024 No results found for: FVC , FEV1 , [id number] I have personally reviewed the imaging studies and verified the reports Impression and Recommendations: 54 y.o. year old female with a PMH significant for pituitary microadenoma, chronic nicotine dependence in remission, and [id number] smoking history who presents for evaluation of pulmonary nodules. She did great on an oral Ellipta from a pulmonary standpoint; however developed headaches while taking the medication My assumption is this is the anticholinergic effect Will trial a different medication in the same class Written for Stiolto. Discontinue Breo while trialing Stiolto. Asked her to follow-up with her solar mechanical engineer to assure intraocular pressures are okay to assure there are no drops that can eat S with getting her on LAMA/LABA therapy Repeat CT scan ordered for 04/2025 Home sleep study ordered given the persistent snoring, fatigue, sleepiness, and frequent nocturnal arousals Follow up in 6 months - Following this patient and have a longitudinal relationship for the above chronic illness Russ Ramirez MD [facility] Pulmonary and Critical Care Medicine [phone] documented in this encounter Plan of Treatment Upcoming Encounters Date Type Department Care Team (Late st Contact Info) Description 01/10/2025 8:15 AM EST Office Visit [facility] Department of Internal Medicine [place] [address] [place] [phone] Angie Reza PA [address] [place] [address] 02/23/2025 9:00 AM EDT Office Visit [facility] Department Of Veneer Jointer Helper [place] [address] [place] [phone] Russ Zapata MD [address] [place] [address] 06/25/2025 8:00 AM EDT Office Visit [facility] Pulmonary [place] [place] [phone] Russ Ramirez MD [address] [place] [address] 07/02/2025 8:15 AM EDT Office Visit [facility] Department of Cardiology [place] [address] [place] [phone] Shahriar Ryan MD [address] [place] [phone] Scheduled Orders Name Type Priority Associated Diagnoses Orde r Schedule CT Chest Low Dose Cancer Annual Screening Imaging Routine Chronic obstructive pulmonary disease, unspecified COPD type (HCC) Nicotine dependence in remission, unspecified nicotine product type Expected: 04/06/2025, Expires: 06/25/2026 General sleep study Sleep Center Routine Fatigue, unspecified type Snoring Expected: 12/26/2024, Expires: 12/26/2025 documented as of this encounter Visit Diagnoses Diagnosis Chronic obstructive pulmonary disease, unspecified COPD type (HCC)- Primary Nicotine dependence in remission, unspecified nicotine product type Fatigue, unspecified type Snoring Other dyspnea and respiratory abnormality documented in this encounter Care Teams Taper Machine Relationship Specialty Start Date End Date Angie Reza PA [address] [place] [address] PCP - General Internal Medicine 06/08/23 documented as of this encounter
--- OUTSIDE RECORDS SUMMARY | 2025-01-04 08:36 | XMS_ITS | Encounter Summary ---
Author Organization [facility] Address [address] [place] [address] Care Team Providers Care Manager [employer]able [employer] Name Role Phone Angie Reza Primary Care Provider +1- [phone] Encounter Details Date Type Department Care Team (Late st Contact Info) Description 03/22/2024 Scanned Document [facility] Pulmonary [address] [place] [phone] Pulmonary, Scan Social History Tobacco Use Types Packs/Day Years [...] Description 01/10/2025 8:15 AM EST Office Visit [facility] Department of Internal Medicine [place] [address] [place] [phone] Angie Reza PA [address] [place], [place] [phone] 02/23/2025 9:00 AM EDT Office Visit [facility] Department Of Washroom Cleaner [place] [address] [place] [phone] Russ Zapata MD [address] [place] [address] 06/25/2025 8:00 AM EDT Office Visit [facility] Pulmonary [place] [address] [place] [address] Russ Ramirez MD [address] [facility] [address] [place] [address] 07/02/2025 8:15 AM EDT [facility] Department of Cardiology [place] [address] [place] [phone] Shahriar Ryan MD [address] [place] [address] documented as of this encounter Visit Diagnoses Not on filedocumented in this encounter Care Teams Manager Renewable Energy Relationship Specialty Start Date End Date Angie Reza PA [address] [place] [phone] PCP - General Internal Medicine 06/08/23 documented as of this encounter
--- OUTSIDE RECORDS SUMMARY | 2025-01-04 08:36 | XMS_ITS | Clinical Summary ---
Author Organization [facility] it Address [address] [place] [address] Care Team Providers Care Grip Wrapper Name Role Phone Alethea Chandler MD Primary Care Provider Unavail able Immunizations Name Administration Dates Next Due Pfizer SARS-CoV-2 COVID-19, mRNA, LNP-S, preservative free 08/23/2021,02/08/2021,01/17/2021 Surgical History Surgery Date Site/Laterality Comments OTHER SURGICAL HISTORY PROCEDURE: DENIES PREVIOUS SURGERY BREAST SURGERY PROCEDURE:BREAST SURGERY WISDOM TOOTH EXTRACTION PROCEDURE:WISDOM TOOTH EXTRACTION OTHER SURGICAL HISTORY PROCEDURE:tooth implant;COMMENT:X2 COLONOSCOPY 09/07/2022 N/A PROCEDURE:COLONOSCOPY;COMMENT:Proc edure: COLONOSCOPY; Surgeon: Ermias More MD; Location: [facility]; Service: Gastroenterology; Laterality: N/A; Medical History Medical History Date Comments Historical Medical DX DX:ADD (at tention deficit disorder with hyperactivity) Familial hyperlipidemia DX:Famil ial hyperlipidemia Tachycardia DX:Tachycardia Frequent headaches DX:Frequent h eadaches Brain tumor (benign) (CMS/HCC) D X:Brain tumor (benign) (HCC) Sinus tachycardia DX:Sinus tachy cardia Hyperlipidemia DX:Hyperlipidemi a IBS (irritable bowel syndrome) D X:IBS (irritable bowel syndrome) Galactorrhea DX:Galactorrhea; COMMENT: outside of Decreased peripheral vision DX:D ecreased peripheral vision Sleep apnea DX:Sleep apnea Family History Medical History Relation Name Comments Cancer Mother Relation Name Status Comments Father Mother Alive Social History Tobacco Use Types Packs/Day Years Used Date Smoking Tobacco: Former Smokeless Tobacco: Never Alcohol Use Standard Drinks/Week Comments No 0 (1 standard drink = 0.6 oz pur e alcohol) Comments Unknown Sex and Gender Information Value Date Recorded Sex Assigned at Female 12/11/2024 9:37 AM EST Legal Sex Female 1:21 PM EST Gender Identity Female 12/11/2024 9:37 AM EST Sexual Orientation Straight 12/11/2024 9: 37 AM EST Obstetrics History Plan of Treatment Upcoming Encounters Date Type Department Care Team (Late st Contact Info) Description 02/19/2025 8:30 AM EDT Appointment [facility] [address] [place] [phone] Health Maintenance Due Date Last Done Comments DTaP,Tdap,and Td Vaccines (1 - Tdap) 1989 Hepatitis A Vaccines (1 of 2 - Risk 2-dose series) 1989 Hepatitis B Vaccines (1 of 3 - 19+ 3-dose series) 1989 Cervical Cancer Screening: P ap Smear 1991 Pneumococcal Vaccine: 50+ Years (1 of 1 - PCV) 2020 Zoster Vaccines (1 of 2) 2020 Cholesterol Screening (Lipid Panel) 10/13/2022 Colorectal Cancer Screening: Colonoscopy 10/13/2022 Depression Screening 10/13/2022 HIV Screening 10/13/2022 Hepatitis C Screening 10/13/2022 Social Influencers of Health Screening 10/13/2022 COVID-19 Vaccine (4 - 2023-2 5 season) 2024 08/23/2021, 02/08/2021, 01/17/2021 Influenza Vaccine (#1) 2024 Breast Cancer Screening 02/16/2026 02/17/20 24, 12/22/2022, 11/03/2021 HIB Vaccines Aged Out No longer eligi ble based on patient's age to complete this topic HPV Vaccines Aged Out No longer eligi ble based on patient's age to complete this topic IPV Vaccines Aged Out No longer eligi ble based on patient's age to complete this topic MMR Vaccines Aged Out No longer eligi ble based on patient's age to complete this topic Meningococcal ACWY Vaccine Aged Out N o longer eligible based on patient's age to complete this topic Meningococcal B Vacine Aged Out No lo nger eligible based on patient's age to complete this topic Pneumococcal Vaccine: Pediatrics (0 to 5 Years) and At-Risk Patients (6 to 64 Years) Aged Out No longer eligible b ased on patient's age to complete this topic RSV Immunization Patients Under 20 months Aged Out No longer eligible b ased on patient's age to complete this topic Varicella Vaccines Aged Out No longer eligible based on patient's age to complete this topic Procedures Procedure Name Priority Date/Time Associated Diagnosis Comments MAMMOGRAM SCREENING BILATERAL WITH IMPLANTS 3D RIGOBERTO WITH CAD Routine 02/17/2024 8:39 AM EDT Encounter for screening mammogram for malignant neoplasm of breast from Last 3 Months or Most Recently Relevant to Health Maintenance Results * MAMMOGRAM SCREENING BILATERAL WITH IMPLANTS 3D RIGOBERTO WITH CAD (02/17/2024 8:39 AM EDT) Anatomical Region Laterality Modality Mammography 02/04/2024 9:49 AM EDT Narrative 02/17/2024 9:10 AM EDT This is a summary report. The complete report is available in the patient's medical record. If you cannot access the medical record, please contact the sending organization for a detailed fax or copy. EXAM PERFORMED: MAMMOGRAM SCREENING BILATERAL WITH IMPLANTS 3D RIGOBERTO WITH CAD EXAM HISTORY: Screening COMPARISON: 12/22/2022, 11/03/2020 TECHNIQUE: Bilateral full field digital mammography synthesized (2-D) and Tomosynthesis (3-D) was performed using standard CC and MLO projections. FINDINGS: There are no dominant mass lesions, skin thickening, or nipple retraction. No cluster of suspicious microcalcifications is seen. There are occasional typically benign calcifications. BREAST DENSITY: ??Scattered fibroglandular densities within the breast parenchyma (25-50% fibroglandular tissue: Density B). ?? IMPRESSION: No radiographic evidence of malignancy. The results of this examination have been communicated to the patient through a lay letter in accordance with the Mammography Quality Standards Act. BI-RADS Category 2: Benign Session: Examination and interpretation performed during a separate session. 3342 F Report reviewed and signed by : Dr. Indiana Craig MD on 02/17/2024 9:10 AM. Workstation Name - [id number] Procedure Note Indiana Craig MD - 07/03/2024 This is a summary report. The complete report is available in thepatient's medical record. If you cannot access the medical record, pleasecontact the sending organization for a detailed fax or copy. EXAM PERFORMED: MAMMOGRAM SCREENING BILATERAL WITH IMPLANTS 3D RIGOBERTO WITHCAD EXAM HISTORY: Screening COMPARISON: 12/22/2022, 11/03/2020 TECHNIQUE: Bilateral full field digital mammography synthesized (2-D) andTomosynthesis (3-D) was performed using standard CC and MLO projections. FINDINGS: There are no dominant mass lesions, skin thickening, or nipple retraction.No cluster of suspicious microcalcifications is seen. There are occasional typically benign calcifications. BREAST DENSITY: Scattered fibroglandular densities within the breastparenchyma (25-50% fibroglandular tissue: Density B). IMPRESSION: No radiographic evidence of malignancy. The results of this examination have been communicated to the patientthrough a lay letter in accordance with the Mammography Quality StandardsAct. BI-RADS Category 2: Benign Session: Examination and interpretation performed during a separatesession. 3342 F Report reviewed and signed by : Dr. Indiana Craig MD on 02/17/2024 9:10 AM.Workstation Name - [id number] Russ Zapata MD IMG BI PROCEDURES Final Res ult from Last 3 Months or Most Recently Relevant to Health Maintenance Insurance [facility] Care Teams Grip Wrapper Relationship Specialty Start Date End Date Alethea Chandler MD PCP - General Family Medicine 10/23/21
--- OUTSIDE RECORDS SUMMARY | 2025-01-04 08:36 | XMS_ITS | Encounter Summary ---
Author Organization [facility] Address [address] [place] [address] Care Team Providers Care Business Performance Analyst Name Role Phone Angie Reza Primary Care Provider [phone]- [phone] Reason for Visit * Reason Comments Sore Throat Encounter Details Date Type Department Care Team (Late st Contact Info) Description 12/18/2024 9:15 AM EST Office Visit [facility] [address] [phone] Kirk Grullon MD [address] [place] [address] Chronic tonsillitis (Primary Dx); Deviated nasal septum Social History Tobacco Use Types Packs/Day Years [...] Sign Reading Time Taken Comments Blood Pressure - - Pulse - - Temperature - - Respiratory Rate - - Oxygen Saturation - - Inhaled Oxygen Concentration - - Weight 86.2 kg (190 lb) 12/18/2024 9:05 AM EST Height 162.6 cm (5' 4 ) 12/18/2024 9:05 AM EST Body Mass Index 32.61 12/18/2024 9:05 AM EST documented in this encounter Progress Notes * Kirk Grullon MD - 12/18/2024 9:15 AM EST Images from the original note were not included. 15 [facility], [facility] FLOOR [facility] [address] Loc: [phone] Encounter Date: 12/18/2024 Chief Complaint Patient presents with Sore Throat 1. Chronic tonsillitis 2. Deviated nasal septum ASSESSMENT AND PLAN Otilia Woodruff is a 54-year-old female presenting for evaluation of frequent tonsil stones. She reports these have been more prevalent since starting a steroid inhaler for COPD diagnosed last year. Oral hygiene measures are being taken post-inhaler use, but the issue persists. Examination reveals cryptic tonsils with signs of chronic inflammation. She also reports issues related to a deviated septum, including internal snoring noises that disturb her sleep, which have not improved with nasal steroid spray. This is likely due to the palate vibrating against the back of the nose. Further evaluation with a sleep study is suggested to rule out obstructive sleep apnea. - Recommend use of a peroxide-based gargle such as Smart Mouth daily after brushing teeth. - Suggest gentle mechanical massage of the tonsils using a soft tip toothbrush or dental water pickon a low setting. - Consider a home sleep study to evaluate for obstructive sleep apnea if symptoms of snoring persists. - She elected to discuss the sleep study with her head setter and proceed with ordering if needed. HISTORY OF PRESENT ILLNESS Otilia Woodruff, a 54-year-old female, presents with concerns about frequent tonsil stones. She attributes the increase in tonsil stones to the use of a steroid inhaler prescribed for COPD diagnosed last year. Despite rigorous oral hygiene practices post-inhaler use, including rinsing, gargling, and brushing, the problem persists. She also reports experiencing internal snoring noises, which she believes are due to her deviated septum, causing sleep disturbances. Previous treatment with a nasal steroid spray did not alleviate her symptoms. PHYSICAL EXAM The patient was in no acute distress and breathing comfortably on exam. Examination of the ears, nose, oral cavity, oropharynx, and neck was completed and found to be within normal limits with the following notable exceptions and findings highlighted here: - Cryptic tonsils with signs of chronic inflammation - No other abnormalities observed in the oral cavity - Neck examination unremarkable - Mod deviated septum to the left DIAGNOSTIC TESTING REVIEWED A home sleep study is recommended to evaluate for obstructive sleep apnea, given the patient's complaints of internal snoring noises and sleep disturbances. PAST MEDICAL HISTORY Past Medical History: Diagnosis Date Brain tumor (benign) (HCC) Chronic headaches Past Surgical History: Procedure Laterality Date AUGMENTATION BREAST ENDOSCOPY Family History Problem Relation Age of Onset Colon polyps Mother Hypertension Mother Alcohol abuse Father Heart attack Father Hypertension Sister Alcohol abuse Sister Clotting disorder Maternal Grandmother Social History Tobacco Use Smoking status: Former Current packs/day: 0.00 Average packs/day: 1 pack/day for 38.0 years (38.0 ttl pk-yrs) Types: Cigarettes Start date: 1983 Quit date: 2021 Years since quittin.0 Smokeless tobacco: Never Vaping Use Vaping status: Never Used Substance Use Topics Alcohol use: Not Currently Drug use: Not Currently MEDICATIONS Current Outpatient Medications: albuterol (PROVENTIL HFA; VENTOLIN HFA) 108 (90 Base) MCG/ACT inhaler, Inhale 2 puffs 4 times daily(every 6 hours) as needed for wheezing., Disp: 1 each, Rfl: 3 cholecalciferol (CHOLECALCIFEROL) 125 MCG (5000 UT) capsule, Take 1 capsule (5,000 Units total) by mouth., Disp: , Rfl: Cyanocobalamin (B-12 PO), Take 100 mg by mouth every other day., Disp: , Rfl: FIBER ADULT GUMMIES PO, Take by mouth., Disp: , Rfl: fluticasone-vilanterol (BREO ELLIPTA) 100-25 MCG/ACT inhaler, Inhale 1 puff daily., Disp: 60 each, Rfl: 5 Lemborexant 5 MG Tab, Take 1-2 tabs PO once daily at bedtime as needed for insomnia, Disp: 30 tablet, Rfl: 3 lisinopril (PRINIVIL,ZeSTRIL) 20 MG tablet, Take 1 tablet (20 mg total) by mouth daily., Disp: 30 tablet, Rfl: 11 metoPROLOL SUCCINATE (TOPROL-XL) 50 MG 24 hr tablet, Take 2 tablets (100 mg total) by mouth daily.,Disp: 60 tablet, Rfl: 11 oxyCODONE-acetaminophen (PERCOCET) 5-325 mg per tablet, Take 2 tablets by mouth 3 times daily (every 8 hours) as needed. for pain, Disp: , Rfl: PreviDent 5000 Enamel Protect 1.1-5 % Gel, PLEASE SEE ATTACHED FOR DETAILED DIRECTIONS, Disp: , Rfl: Probiotic Tablet Delayed Response, Take by mouth., Disp: , Rfl: rosuvastatin (CRESTOR) 10 MG tablet, Take 1 tablet (10 mg total) by mouth daily., Disp: 90 tablet, Rfl: 3 tiZANidine (ZANAFLEX) 2 MG tablet, TAKE 1 TABLET BY MOUTH NEEDED AT BEDTIME FOR 28 DAYS, FOR MUSCLE SPASMS, Disp: , Rfl: triamcinolone (KENALOG) 0.1 % cream, MIX ENTIRE CONTENTS, 80 GM WITH A JAR OF CERAVE CREAM AND APPLY EVERY DAY AFTER BATH, Disp: , Rfl: ALLERGIES Allergies Allergen Reactions Bee Venom Swelling [employer]ets VISIT ORDERS 1. Chronic tonsillitis 2. Deviated nasal septum Kirk Grullon MD documented in this encounter Plan of Treatment Upcoming Encounters Date Type Department Care Team (Late st Contact Info) Description 01/10/2025 8:15 AM EST Office Visit [facility] Department of Internal Medicine [place] [address] [phone] Angie Reza PA [address] [address] 02/23/2025 9:00 AM EDT Office Visit [facility] Department Of Animal Control Supervisor [place] [address] [phone] Russ Zapata MD 160 [place] [address] 06/25/2025 8:00 AM EDT Office Visit [facility] [place] [address] [place] [phone] Russ Ramirez MD [address] [address] 07/02/2025 8:15 AM EDT Office Visit [facility] Department of Cardiology [place] 160 [facility] [address] [place] [address] Shahriar Ryan MD 160 [facility] 100 [place] [address] documented as of this encounter Visit Diagnoses Diagnosis Chronic tonsillitis- Primary Deviated nasal septum documented in this encounter Care Teams Business Performance Analyst Relationship Specialty Start Date End Date Angie Reza PA 160 [facility] 100 [place] [address] PCP - General Internal Medicine 06/08/23 documented as of this encounter
--- OUTSIDE RECORDS SUMMARY | 2025-01-04 08:37 | XMS_ITS | Encounter Summary ---
Author Organization [facility] Address [address] [place] [address] Care Team Providers Care Iuss Analyst Name Role Phone Angie Reza Primary Care Provider +1- [phone] Encounter Details Date Type Department Care Team (Late st Contact Info) Description 08/31/2024 Telephone [facility] [address] [phone] Russ Ramirez MD [address] [place] [address] Social History Tobacco Use Types Packs/Day Years Used Date Smoking Tobacco: Former Cigarettes 1 38 1 984 - 2022 Smokeless Tobacco: Never Alcohol Use Standard Drinks/Week [...] Description 01/10/2025 8:15 AM EST Office Visit [facility] Department of Internal Medicine [place] [address] [place] [phone] Angie Reza PA [address] [place] [address] [place] [address] 02/23/2025 9:00 AM EDT Office Visit [facility] Department Of Pallet Stone Positioner [place] [address] [place] [phone] Russ Zapata MD [address] [place] [address] 06/25/2025 8:00 AM EDT Office Visit [facility] Pul[facility] [place] [address] [place] [address] Russ Ramirez MD [address] [place] [address] 07/02/2025 8:15 AM EDT Office Visit [facility] Department of Cardiology [place] [address] [place] [phone] Shahriar Ryan MD [address] [place] [address] [place] [address] documented as of this encounter Visit Diagnoses Not on filedocumented in this encounter Care Teams Iuss Analyst Relationship Specialty Start Date End Date Angie Reza PA [address] [place] [address] [place] [address] PCP - General Internal Medicine 06/08/23 documented as of this encounter
== END 2025-01-04 08:45 | disposition home or self-care (01) ==
PROVIDERS: PCP Family Medicine; Visit Provider Nurse Practitioner Family
DX: N95.1 Menopausal and female climacteric states (principal); R51.9 Headache, unspecified; G89.29 Other chronic pain; Z79.891 Long term (current) use of opiate analgesic; D35.2 Benign neoplasm of pituitary gland; M47.812 Spondylosis without myelopathy or radiculopathy, cervical region
CPT/HCPCS: 99214

== ENCOUNTER 2025-02-01 08:22 | Outpatient (AMB) | payer BC, SELFPAY ==
--- NOTE | 2025-02-01 08:34 | A.OFFVIS_ITS ---
Vital Signs 02/01/25 08:41 Height 5 ft 4 in Weight 192 lb 4 oz BMI 33.0 BP 147/72 H Blood Pressure Location Rt brachial Position Sitting Pulse 63 Pulse Source Pulse Oximeter Pulse Oximetry (%) 95 Oxygen Delivery Method Room Air Intake Visit Reasons: PILL COuNT Intake Note: Otilia comes in today for a pill count to oxycodone-acetaminophen, patient should have 18 tablets and presents with 18 tablets which she last took today 02/01/25 at 6am. Pain today 02/22 Dry Press Operator Required: No Accompanied by: Self / Same As Patient Allergies amphetamine [From Mydayis] Allergy (Severe, Verified 02/01/25 08:42) Hypertension dextroamphetamine [From Mydayis] Allergy (Severe, Verified 02/01/25 08:42) Hypertension HPI Comments Details: Patient presents today for a pill count. She is supposed to have #18 pills in her possession and presents with #18 pills. This demonstrates a responsible attitude in regards to the medication regimen. Patient reports reasonable analgesia with no noted side effects. Rates pain at 10. Patient denies any fever, chills, shortness of breaths, chest pain or tightness, visual disturbances, weakness, constipation, sedation, nausea, dizziness or urinary retention. Patient is frustrated for gaining few pounds over the last month with persistent efforts to have a well-balanced diet with supplemental dietary fiber and OTC medications. She is planning to follow up with Plodding Machine Operator. Denies any recent cough, cold, infection, fever or other significant changes in medical history since last office visit. [facility] Medical History Chronic headaches COPD (chronic obstructive pulmonary disease) Obesity (BMI 30-39.9) Menopause syndrome Insomnia associated with menopause Diabetes Chronic pain Pituitary adenoma Surgical History H/O breast augmentation Family History Mother Carcinoid tumor Diabetes Hypertension High cholesterol Father Heart disease Social History Alcohol intake: current Alcohol intake frequency: does not drink Patient Tobacco Use Status: Former Tobacco user Review of Systems Const All systems reviewed & are unremarkable except as noted in HPI and below Physical Exam Vital Signs: Last Vital Signs Pulse 63 02/01/25 08:41 BP 147/72 H 02/01/25 08:41 Pulse Ox 95 02/01/25 08:41 Oxygen Delivery Method Room Air 02/01/25 08:41 BMI result Body Mass Index 33.0 General: Appears afebrile. Alert and oriented. Mood and affect appropriate. Follows and participates in conversation appropriately. Respiratory effort is unlabored. No cough. Able to transition from sit to stand unassisted. Ambulates with bilaterally normal heel strike and toe off. Extrem General: Yes capillary refill normal, Yes no clubbing, cyanosis or edema and Yes no calf tenderness Psych Appearance: grossly normal and well kempt Mental Status: mental status grossly normal Speech and movement: Normal speech and movement present and Clear speech present Affect: normal affect Attitude: cooperative Thought process: Normal thought process present Thought content: Normal thought content present, suicidality (none), no hallucinations and Depressive thoughts present Insight: Good insight present (Psych) Judgement: Good judgement present (Psych) Results Reviewed Results Reviewed: No imaging reports are available for review today. Assessment & Plan Assessment & Plan (1) Chronic headaches: Code(s): R51.9 - Headache, unspecified; G89.29 - Other chronic pain Category: Medical (2) Chronic pain: Code(s): G89.29 - Other chronic pain Category: Medical (3) Chronic, continuous use of opioids: Code(s): F11.90 - Opioid use, unspecified, uncomplicated Category: Medical (4) Pituitary adenoma: Code(s): D35.2 - Benign neoplasm of pituitary gland Category: Medical (5) Cervical spondylosis: Code(s): M47.812 - Spondylosis without myelopathy or radiculopathy, cervical region Category: Medical Plan Patient has shown accountability for her medication regimen and the pill count was accurate. The patient reported no noted side effects and she reports adequate pain relief. There is no evidence of misuse, abuse or diversion at this time. MassPAT reviewed and consistent. Prescription sent for Percocet 10-325 mg TID is sent with advanced date of 02/04/25. Patient has Narcan at home. Continue Dayvigo. Continue daily physical activity, gym sessions, adequate hydration, relaxation and deep breathing exercises, weight optimization, and good posture. Patient will reach out to Plodding Machine Operator to assist her with weight loss goals. All questions were answered and patient was in agreement of plan. Follow up in 4 weeks for pill count and sooner if needed. Medications: Refilled oxycodone-acetaminophen 5-325 mg Partial Fill upon patient request. 2 tabs PO Q8H 30 days PRN 180 tabs 0RF pain D35.2 - Benign neoplasm of pituitary gland, F11.90 - Opioid use, unspecified, uncomplicated, G89.29 - Other chronic pain oxycodone-acetaminophen 5-325 mg Partial Fill upon patient request. 2 tabs PO Q8H 30 days PRN 180 tabs 0RF pain D35.2 - Benign neoplasm of pituitary gland, F11.90 - Opioid use, unspecified, uncomplicated, G89.29 - Other chronic pain Coding Level of Care Code Est Pt Level 4 (38117) Complex EM visit Add On G2211 Diagnoses Chronic headaches R51.9; G89.29 Chronic pain G89.29 Chronic, continuous use of opioids F11.90 Pituitary adenoma D35.2 Cervical spondylosis M47.812
[2025-02-01 08:41] VITALS: BP 147/72; PULSE 63; O2SAT 95; BMI 33.0
== END 2025-02-01 09:00 | disposition home or self-care (01) ==
LOC: HO.PMC 08:23
PROVIDERS: Visit Provider Nurse Practitioner Family
DX: G89.29 Other chronic pain (principal); R51.9 Headache, unspecified; Z79.891 Long term (current) use of opiate analgesic; D35.2 Benign neoplasm of pituitary gland; M47.812 Spondylosis without myelopathy or radiculopathy, cervical region
CPT/HCPCS: 99214

== ENCOUNTER 2025-03-01 08:19 | Outpatient (AMB) | payer BC, SELFPAY ==
--- NOTE | 2025-03-01 08:27 | MHC.OFFVIS ---
Vital Signs 03/01/25 08:35 Height 5 ft 4 in Weight 189 lb 6 oz BMI 32.5 BP 135/79 Blood Pressure Location Rt brachial Position Sitting Pulse 96 Pulse Source Pulse Oximeter Pulse Oximetry (%) 95 Oxygen Delivery Method Room Air Intake Visit Reasons: Pill count Intake Note: Otilia comes in today for a pill count to oxycodone-acetaminophen, patient should have 30 tablets and presents with 32 tablets which she last took today 03/01/25. Pain today 02/22 Jockey Valet Required: No Accompanied by: Self / Same As Patient Allergies amphetamine [From Mydayis] Allergy (Severe, Verified 03/01/25 08:34) Hypertension dextroamphetamine [From Mydayis] Allergy (Severe, Verified 03/01/25 08:34) Hypertension HPI Comments Details: Patient presents today for a pill count. She is supposed to have #30 pills in her possession and presents with #32 pills. This demonstrates a responsible attitude in regards to the medication regimen. Patient reports reasonable analgesia with no noted side effects. Rates pain at 02/22. Patient denies any fever, chills, shortness of breaths, chest pain or tightness, visual disturbances, weakness, constipation, sedation, nausea, dizziness or urinary retention. Patient has lost 3 lbs since lost visit after undergoing Nutrition consultation Denies any recent cough, cold, infection, fever or other significant changes in medical history since last office visit. [facility] Medical History Chronic headaches COPD (chronic obstructive pulmonary disease) Obesity (BMI 30-39.9) Menopause syndrome Insomnia associated with menopause Diabetes Chronic pain Pituitary adenoma Surgical History H/O breast augmentation Family History Mother Carcinoid tumor Diabetes Hypertension High cholesterol Father Heart disease Social History Alcohol intake: current Alcohol intake frequency: does not drink Patient Tobacco Use Status: Former Tobacco user Review of Systems Const All systems reviewed & are unremarkable except as noted in HPI and below Physical Exam Vital Signs: Last Vital Signs Pulse 96 03/01/25 08:35 BP 135/79 03/01/25 08:35 Pulse Ox 95 03/01/25 08:35 Oxygen Delivery Method Room Air 03/01/25 08:35 BMI result Body Mass Index 32.5 General: Appears afebrile. Alert and oriented. Mood and affect appropriate. Follows and participates in conversation appropriately. Respiratory effort is unlabored. No cough. Able to transition from sit to stand unassisted. Ambulates with bilaterally normal heel strike and toe off. Resp Effort & Inspection: normal respiratory effort, able to speak in complete sentences, no cough, no respiratory distress and symmetric chest movement Extrem General: Yes capillary refill normal, Yes no clubbing, cyanosis or edema and Yes no calf tenderness Psych Appearance: grossly normal and well kempt Mental Status: mental status grossly normal Speech and movement: Normal speech and movement present and Clear speech present Affect: normal affect Attitude: cooperative Thought process: Normal thought process present Thought content: Normal thought content present, suicidality (none), no hallucinations and Depressive thoughts present Insight: Good insight present (Psych) Judgement: Good judgement present (Psych) Results Reviewed Results Reviewed: No imaging reports are available for review today. Assessment & Plan Assessment & Plan (1) Chronic headaches: Code(s): R51.9 - Headache, unspecified; G89.29 - Other chronic pain Category: Medical (2) Chronic pain: Code(s): G89.29 - Other chronic pain Category: Medical (3) Chronic, continuous use of opioids: Code(s): F11.90 - Opioid use, unspecified, uncomplicated Category: Medical (4) Pituitary adenoma: Code(s): D35.2 - Benign neoplasm of pituitary gland Category: Medical (5) Cervical spondylosis: Code(s): M47.812 - Spondylosis without myelopathy or radiculopathy, cervical region Category: Medical Plan Patient has shown accountability for her medication regimen and the pill count was accurate. The patient reported no noted side effects and she reports adequate pain relief. There is no evidence of misuse, abuse or diversion at this time. MassPAT reviewed and consistent. Prescription sent for Percocet 10-325 mg TID is sent with advanced date of 03/06/25. Patient has Narcan at home. Continue Dayvigo. Continue daily physical activity, gym sessions, adequate hydration, relaxation and deep breathing exercises, weight optimization, and good posture. Patient will continue follow up with Nascar Driver to assist her with weight loss goals. She recently has lost 3 lbs with dietary adjustments. All questions were answered and patient was in agreement of plan. Follow up in 4 weeks for pill count and sooner if needed. Medications: Refilled oxycodone-acetaminophen 5-325 mg Partial Fill upon patient request. 2 tabs PO Q8H 30 days PRN 180 tabs 0RF pain D35.2 - Benign neoplasm of pituitary gland, F11.90 - Opioid use, unspecified, uncomplicated, G89.29 - Other chronic pain lemborexant (Dayvigo) 5 mg PO BEDTIME 30 days 30 tabs 2RF N95.1 - Menopausal and female climacteric states Coding Level of Care Code Est Pt Level 4 (27321) Complex EM visit Add On G2211 Diagnoses Chronic headaches R51.9; G89.29 Chronic pain G89.29 Chronic, continuous use of opioids F11.90 Pituitary adenoma D35.2 Cervical spondylosis M47.812
[2025-03-01 08:35] VITALS: BP 135/79; PULSE 96; O2SAT 95; BMI 32.5
--- OUTSIDE RECORDS SUMMARY | 2025-03-01 08:35 | XMS_ITS | Encounter Summary ---
Author Organization [facility] Address [address] [place] [address] Care Team Providers Care Net Ui Developer Name Role Phone Suha Oliveros MD Primary Care Provider [phone] Angie Reza Primary Care Provider [phone]- [phone] Encounter Details Date Type Department Care Team (Late st Contact Info) Description 02/11/2023 Scanned Document [facility] Department of Internal Medicine [place] [address] [place] [phone] Angie Reza PA [address] [place] [address] Social History Tobacco Use Types Packs/Day Years Used Date Smoking Tobacco: Former Cigarettes Q uit: 2021 Smokeless Tobacco: Never Alcohol Use Standard Drinks/Week Comments Not Currently 0 (1 standard drink = 0.6 oz pur e alcohol) Comments Unknown Sex and Gender Information Value Date Recorded Sex Assigned at Female 04/13/2024 2:06 PM EDT Legal Sex Female 12:04 AM EDT Gender Identity Female 04/13/2024 2:06 PM [...] Care Team (Late st Contact Info) Description 05/31/2025 2:00 PM EDT Office Visit [facility] Department of Internal Medicine [place] [address] [place] [phone] Angie Reza PA [address] [place] [address] 06/25/2025 8:00 AM EDT Office Visit [facility] [place] [address] [place] [address] Russ Ramirez MD [address] [place] [address] 07/02/2025 8:15 AM EDT Office Visit [facility] Department of Cardiology [place] [address] [place] [phone] Shahriar Ryan MD [address] [place] [address] [place] [address] documented as of this encounter Visit Diagnoses Not on filedocumented in this encounter Care Teams Net Ui Developer Relationship Specialty Start Date End Date Suha Oliveros MD [address] [place] [address] PCP - General 04/06/19 06/07/23 Angie Reza PA [address] [place] [address] PCP - General Internal Medicine 06/08/23 documented as of this encounter
--- OUTSIDE RECORDS SUMMARY | 2025-03-01 08:36 | XMS_ITS | Encounter Summary ---
Author Organization [facility] Address [address] [place] [address] Care Team Providers Care Assistant Professor Of Biology Name Role Phone Angie Reza Primary Care Provider [phone]- [phone] Encounter Details Date Type Department Care Team (Late st Contact Info) Description 03/22/[address] [facility] [place] Pulmonary [address] [place] [phone] Pulmonary, Scan Social History Tobacco Use Types [...] Description 05/31/2025 2:00 PM EDT Office Visit [facility] Department of Internal Medicine [place] [address] [place] [phone] Angie Reza PA [address] [place], [place] [address] 06/25/2025 8:00 AM EDT Office Visit [facility] [place] [facility] [place] [address] [place] [address] Russ Ramirez MD 85 [facility] [address] [place] [address] 07/02/2025 8:15 AM EDT Office Visit [facility] Department of Cardiology [place] [address] [place] [address] Shahriar Ryan MD 160 [facility] 100 [place] [address] documented as of this encounter Visit Diagnoses Not on filedocumented in this encounter Care Teams Assistant Professor Of Biology Relationship Specialty Start Date End Date Angie Reza PA 160 [facility] 100 [place] [address] PCP - General Internal Medicine 06/08/23 documented as of this encounter
--- OUTSIDE RECORDS SUMMARY | 2025-03-01 08:36 | XMS_ITS | Clinical Summary ---
Author Organization [facility] Address [address] [place] [address] Care Team Providers Care Asp Web Developer Name Role Phone Angie Reza Primary Care Provider [phone] Allergies Active Allergy Reactions Criticality Noted Date Comments Bee Venom Swelling Medium 04/14/2019 [place] Medications Cyanocobalamin (B-12 PO) Take 100 mg by mouth every other day. Active triamcinolone (KENALOG) 0.1 % cream MIX ENTIRE CONTENTS, 80 GM WITH A JAR OF CERAVE CREAM AND APPLY EVERY DAY AFTER BATH 023 Active Probiotic Tablet Delayed Response Take by mouth. 022 Active cholecalciferol (CHOLECALCIFEROL) 125 MCG (5000 UT) capsule Take 1 capsule (5,000 Units total) by mouth. Active FIBER ADULT GUMMIES PO Take by mouth. Active oxyCODONE-acetaminophen (PERCOCET) 5-325 mg per tablet Take 2 tablets by mouth 3 times daily (every 8 hours) as needed. for pain 023 Active Lemborexant 5 MG TabIndications:Insomnia , unspecified type Take 1-2 tabs PO once daily at bedtime as needed for insomnia 30 tablet 3 023 Active PreviDent 5000 Enamel Protect 1.1-5 % Gel PLEASE SEE ATTACHED FOR DETAILED DIRECTIONS 024 Active tiZANidine (ZANAFLEX) 2 MG tablet TAKE 1 TABLET BY MOUTH NEEDED AT BEDTIME FOR 28 DAYS, FOR MUSCLE SPASMS 024 Active rosuvastatin (CRESTOR) 10 MG tabletIndications:Famil y history of familial hypercholesterolemia Take 1 tablet (10 mg total) by mouth daily. 90 tablet 3 024 2024 Active albuterol (PROVENTIL HFA; VENTOLIN HFA) 108 (90 Base) MCG/ACT inhalerIndications:Ciga rette nicotine dependence in remission Inhale 2 puffs 4 times daily (every 6 hours) as needed for wheezing. 1 each 3 024 Active metoPROLOL SUCCINATE (TOPROL-XL) 50 MG 24 hr tabletIndications:Sinus tachycardia Take 2 tablets (100 mg total) by mouth daily. 60 tablet 11 024 2024 Active Additional Information Patient taking differently: 50 mgOral Daily, Reported on 12/26/2024 lisinopril (PRINIVIL,ZeSTRIL) 20 MG tabletIndications:Prima ry hypertension Take 1 tablet (20 mg total) by mouth daily. 30 tablet 11 024 2024 Active tiotropium-olodaterol (STIOLTO RESPIMAT) 2.5-2.5 mcg/inh inhalerIndications:Cutter And Paster Press Clippings bren obstructive pulmonary disease, unspecified COPD type (HCC) Inhale 2 puffs daily. 4 g 5 025 Active Active Problems Problem Noted Date Diagnosed Date Fatigue 12/26/2024 Snoring 12/26/2024 Chronic obstructive pulmonary disease 05/29/2024 Insomnia 06/08/2023 Pituitary microadenoma 02/28/2023 3 Anxiety 02/28/2023 02/28/2023 Attention deficit hyperactiv ity disorder (ADHD), predominantly inattentive type 02/28/2023 02/28/2023 Obesity (BMI 30.0-34.9) 02/28/2023 02/29/20 Assessment & Plan (03/11/2023 8:45 AM EDT): Weight loss is indicated HLD (hyperlipidemia) 02/28/2023 02/28/2023 Assessment & Plan (03/11/2023 8:56 AM EDT): Patient is concerned about triglycerides. Otherwise her lipids are satisfactory. I told her to take some ekmg-icb-eyzjuhv fish oil. We will check lipids in [...] Colonoscopy to rule out malignancy/IBD. 3. Daily israeli yogurt. 4. Lemon david tea. If measures unsuccessful, will have her meet with microsoft solutions architect to do low FODMAPS diet. We can [...] Encounters Date Type Department Care Team Description 02/23/2025 9:00 AM EDT Office Visit [facility] Department Of [facility] Gr[facility] [place] [address] [place] [address] Russ Zapata MD Well female exam with routine gynecological exam (Primary Dx); Papanicolaou smear; Visit for screening mammogram 02/22/2025 Travel 12/26/2024 9:00 AM EST Office Visit [facility] [place] [address] [place] [phone] Russ Ramirez MD Chronic obstructive pulmonary disease, unspecified COPD type (HCC) (Primary Dx); Nicotine dependence in remission, unspecified nicotine product type; Fatigue, unspecified type; Snoring 12/26/2024 Travel 12/18/2024 9:15 AM EST Office Visit [facility] [place] [address] [facility] [place] [address] Kirk Grullon MD Chronic tonsillitis (Primary Dx); Deviated nasal septum 12/11/2024 8:00 AM EST Office Visit [facility] Department of Cardiology [place] [address] [facility] [address] [place] [address] Prince Lomas PA Sinus tachycardia (Primary Dx); Primary hypertension; Hyperlipidemia, unspecified hyperlipidemia type; Obesity (BMI 30.0-34.9) from Last 3 Months Immunizations Immunization Administration Dates Next Due Tdap 05/17/2017 Family History Medical History Relation Name Comments Alcohol abuse Father Heart attack Father Clotting disorder Maternal Grandmother Colon polyps Mother Hypertension Mother Alcohol abuse Sister Hypertension Sister Relation Name Status Comments Father Maternal Grandmother Mother Sister Social History Tobacco Use Types Packs/Day Years Used Date Smoking Tobacco: Former Cigarettes 1 38 1 984 - 2 Smokeless Tobacco: Never Tobacco Cessation:Counseling Given: Not [...] Sign Reading Time Taken Comments Blood Pressure 124/82 02/23/2025 8:59 AM EDT Pulse 67 12/26/2024 9:00 AM EST Temperature 36.4 ??C (97.6 ??F) 12/26/2024 9:00 AM ES T Respiratory Rate - - Oxygen Saturation 98% 12/26/2024 9:00 AM EST Inhaled Oxygen Concentration - - Weight 87.1 kg (192 lb) 02/23/2025 8:59 AM EDT Height 162.6 cm (5' 4 ) 12/26/2024 9:00 AM EST Body Mass Index 32.96 12/26/2024 9:00 AM EST Plan of Treatment Upcoming Encounters Date Type Department Care Team (Late st Contact Info) Description 05/31/2025 2:00 PM EDT Office Visit [facility] Department of Internal Medicine [place] [address] [phone] Angie Reza PA [address] [place] [address] 06/25/2025 8:00 AM EDT Office Visit [facility] [place] [address] [place] [phone] Russ Ramirez MD [address] [place], [place] [phone] 07/02/2025 8:15 AM EDT Office Visit [facility] Department of Cardiology [place] [address] [phone] Shahriar Ryan MD [address] [place] [address] Health Maintenance Due Date Last Done Comments [...] 2024 08/23/2021, 02/08/2021, 01/17/2021 Mammogram 02/22/2026 02/23/2024, 02/05/2023, 11/03/2021 Pap Smear (Ages 21-65) 02/22/2027 , 01/20/2023, 01/11/2023, Additional history exists DTaP/Tdap/Td Vaccines (2 - T d or Tdap) 05/17/2027 05/17/2017 Colonoscopy 09/07/2032 09/07/2022 Chronic Controlled Substance Toxicology Screening Discontinued 05/29/2024 Chronic Controlled Substance User PDMP Review Discontinued 05/29/2024, 06/08/2023 Procedures Procedure Name Priority Date/Time Associated Diagnosis Comments POCT URINE SHORT DRAW Routine 02/23/2025 9:46 AM EDT Well female exam with routine gynecological exam ECG 12-LEAD Routine 12/11/2024 8:05 AM EST Sinus tachycardia Primary hypertension POCT DRUG SCREEN PANEL Routine 05/29/2024 7:24 AM EDT Insomnia, unspecified type THINPREP PAP TEST (PUBLIC ADMINISTRATION TEACHER) Routine 02/23/2024 9:07 AM EDT Papanicolaou smear IMAGING BREAST/BX/MAMMO Routine 02/23/2024 from Last 3 Months or Most Recently Relevant to Health Maintenance Results * POCT Urine Short Draw (02/23/2025 9:46 AM EDT) Glucose, UA Negative Negative Protein, UA Negative Negative Ketones, UA Negative Negative Urine Urine specimen / Unknown 02/23/2025 9:46 AM EDT Russ Zapata MD POINT OF CARE TEST ORDERABL ES Final Result * ECG 12 lead (12/11/2024 8:05 AM EST) 12/11/2024 8:05 AM EST Prince NEUMANN ECG ORDERABLES Final Result * POCT Rapid Drug Screen 11 Panel [...] EDT Angie NEUMANN POINT OF CARE TEST ORDERAB LES Final Result * ThinPrep Pap Test (Mophead Trimmer And Wrapper) (02/23/2024 9:07 AM EDT) 02/23/2024 9:07 AM EDT Narrative [facility] - 02/25/2024 12:08 PM EDT To view the final report click the scan hyperlink below. us Russ Zapata MD LAB AMB PATH/CYTO ORDERABLE S Final Result Performing Organization Address [facility]/State/[facility] Co de Phone Number [facility] [address] [place] [address], * Imaging Breast/Bx/Mammo Result (02/23/2024) Anatomical Region Laterality Modality Other External Provider IMG LEGACY PROCEDURES Final Result from Last 3 Months or Most Recently Relevant to Health Maintenance Insurance [address] [place] [id number] [facility] OUT OF STATE - PPO [address] [place] [address] BLUE CROSS OUT OF [facility] [address] [place] [address], [place] [address] BLUE CROSS OUT OF [facility] [address] [place] [address] BLUE CROSS OUT OF [facility] - PPO 8 SARI Ramos [id number] Care Teams Asp Web Developer Relationship Specialty Start Date End Date Angie Reza PA [address] [place] [address] PCP - General Internal Medicine 06/08/23
--- OUTSIDE RECORDS SUMMARY | 2025-03-01 08:36 | XMS_ITS | Clinical Summary ---
Author Organization [facility] Address [address] [place] [address] Care Team Providers Care Elementary Math Tutor Name Role Phone Alethea Chandler MD Primary Care Provider [phone] Allergies Active Allergy Reactions Criticality Noted Date [...] Advance Directives For more information, please contact: [phone] Latest Code Status on File Code Status Date Activated Date Inactivated Comments Full Code 09/07/2022 9:42 AM 09/07/2022 4:24 PM Thi s code status was ascertained in the following way: discussion with patient . Care Teams Elementary Math Tutor Relationship Specialty Start Date End Date Alethea Chandler MD [address] [facility] [place] [address] PCP - General Family Medicine 02/07/24
--- OUTSIDE RECORDS SUMMARY | 2025-03-01 08:36 | XMS_ITS | Clinical Summary ---
Author Organization [facility] Address [address] [place] [address] Phone Care Team Providers Care Head Of Art Name Role Phone Angie Reza Primary Care Provider [phone] Encounters Date Type Department Care Team Description 02/19/2025 8:21 AM EDT - 02/19/2025 11:59 PM EDT Hospital Encounter [facility] [address] [place] [address] Encounter for screening mammogram for malignant neoplasm of breast Discharge Disposition: Home or Self Care from Last 3 Months Immunizations Name Administration Dates Next Due Pfizer SARS-CoV-2 COVID-19, mRNA, LNP-S, preservative free 08/23/2021,02/08/2021,01/17/2021 Surgical History Surgery Date Site/Laterality Comments OTHER SURGICAL HISTORY PROCEDURE: DENIES PREVIOUS SURGERY BREAST SURGERY PROCEDURE:BREAST SURGERY WISDOM TOOTH EXTRACTION PROCEDURE:WISDOM TOOTH EXTRACTION OTHER SURGICAL HISTORY PROCEDURE:tooth implant;COMMENT:X2 COLONOSCOPY 09/07/2022 N/A PROCEDURE:COLONOSCOPY;COMMENT:Proc edure: COLONOSCOPY; Surgeon: Ermias More MD; Location: [facility]; Service: Gastroenterology; Laterality: N/A; Medical History Medical History Date Comments Historical Medical DX DX:ADD (at tention deficit disorder with hyperactivity) Familial hyperlipidemia DX:Famil ial hyperlipidemia Tachycardia DX:Tachycardia Frequent headaches DX:Frequent h eadaches Brain tumor (benign) (CMS/HC C V24, CMS/HCC V28) DX:Brain tumor (benign) (HCC ) Sinus tachycardia DX:Sinus tachy cardia Hyperlipidemia DX:Hyperlipidemi [...] = 0.6 oz pur e alcohol) Comments No Sex and Gender Information Value Date Recorded Sex Assigned at Female 12/11/2024 9:37 AM EST Legal Sex Female 1:21 PM EST Gender Identity Female 12/11/2024 9:37 AM EST Sexual Orientation Straight 12/11/2024 9: 37 AM EST Obstetrics History Last Filed Vital Signs Vital Sign Reading Time Taken Comments Blood Pressure - - Pulse - - Temperature - - Respiratory Rate - - Oxygen Saturation - - Inhaled Oxygen Concentration - - Weight 85.3 kg (188 lb) 02/19/2025 8:32 AM EDT Height 162.6 cm (5' 4 ) 02/19/2025 8:32 AM EDT Body Mass Index 32.27 02/19/2025 8:32 AM EDT Plan of Treatment Health Maintenance Due Date Last Done Comments Hepatitis B Vaccines (1 of 3 - 19+ 3-dose series) 1989 Pneumococcal Vaccine: 50+ Years (1 of 2 - PCV) 1989 Pneumococcal Vaccine: Pediatrics (0 to 5 Years) and At-Risk Patients (6 to 64 Years) (1 of 2 - PCV) 1989 Cervical Cancer Screening: Pap Smear 1991 Zoster Vaccines (1 of 2) 2020 Cholesterol Screening (Lipid Panel) 10/13/2022 Colorectal Cancer Screening: Colonoscopy 10/13/2022 Depression Screening 10/13/2022 HIV Screening 10/13/2022 Hepatitis C Screening 10/13/2022 Social Influencers of Health Screening 10/13/2022 COVID-19 Vaccine ( season) 2024 08/23/2021, 02/08/2021, 01/17/2021 Hypertension/CHF/CAD Annual BMP Blood Test 02/19/2025 Lung Cancer Screening (Low Dose CT) 04/05/2025 04/05/2024 Influenza Vaccine (Season Ended) 2025 Breast Cancer Screening 02/19/2027 02/20/20, 02/17/2024, 12/22/2022, Additional history exists DTaP,Tdap,and Td Vaccines (2 - Td or Tdap) 05/17/2027 05/17/2017 HIB Vaccines Aged Out No longer eligi ble based on patient's age to complete this topic HPV Vaccines Aged Out No longer eligi ble based on patient's age to complete this topic Hepatitis A Vaccines Aged Out No long er eligible based [...] age to complete this topic Meningococcal B Vaccine Aged Out No l onger eligible based on patient's age to complete this topic RSV Immunization Patients Under 20 months Aged Out No longer eligible based on patient's age to complete this topic Varicella Vaccines Aged Out No longer eligible based on patient's age to complete this topic Medical Devices Implanted Type Area Manager Welding Device Identifier Shelf Expiration Date Model / Serial / Lot Breast Implants Breast Implants Bilateral: Breast Procedures Procedure Name Priority Date/Time Associated Diagnosis Comments MG MAMMO DIGITAL SCREENING W JOSE M BILAT Routine 02/19/2025 9:00 AM EDT Encounter for screening mammogram for malignant neoplasm of breast CT CHEST LOW DOSE RADIATION SCREENING WITHOUT IV CONTRAST Routine 04/05/2024 3:55 PM EDT Nicotine dependence, cigarettes, in remission Encounter for screening for malignant neoplasm of respiratory organs from Last 3 Months or Most Recently Relevant to Health Maintenance Results * MG Mammo Digital Screening w Jose M bilat (02/19/2025 9:00 AM EDT) Anatomical Region Laterality Modality Breast Bilateral Mammography 02/20/2025 10:2 3 AM EDT Impressions 02/20/2025 10:25 AM EDT No mammographic evidence of malignancy. BI-RADS CATEGORY: 2 - BENIGN RECOMMENDATION: Screening bilateral mammogram is recommended in 1 year. The patient will receive a lay summary regarding their personal breast density per current federal guidelines. Exam Location: [facility], [address] [place], [place], [address], . Report reviewed and signed by : Dr. Viola Tapia on 02/20/2025 10:25 AM. Workstation Name - [id number] -------- FINAL REPORT -------- Dictated By: Viola Tapia Dictated Date: 02/20/2025 10:23 ET Assigned Physician: Viola Tapia Reviewed and Electronically Signed By: Viola Tapia Signed Date: 02/20/2025 10:25 ET Workstation ID: [id number] Transcribed By: Self Edit Transcribed Date: 02/20/2025 10:23 ET Narrative 02/20/2025 10:25 AM EDT EXAM: MG MAMMO DIGITAL SCREENING W JOSE M BILAT EXAM DATE: 02/19/2025 8:25 AM HISTORY: SCREENING FOR MALIGNANCY COMPARISON: 02/17/2024, 12/22/2022, 11/03/2021 ?? TECHNIQUE: Bilateral digital mammography using tomosynthesis technique was performed in the standard CC and MLO projections. Implant displaced views were also obtained. Computer-aided detection was utilized in the interpretation of this examination. TISSUE DENSITY: B - There are scattered areas of fibroglandular density. FINDINGS: Bilateral subpectoral saline implants are noted. No suspicious masses, grouped microcalcifications, or areas of architectural distortion are seen. Procedure Note Viola Tapia MD - 02/20/2025 EXAM: MG MAMMO DIGITAL SCREENING W JOSE M BILAT EXAM DATE: 02/19/2025 8:25 AM HISTORY: SCREENING FOR MALIGNANCY COMPARISON: 02/17/2024, 12/22/2022, 11/03/2021 TECHNIQUE: Bilateral digital mammography using tomosynthesis technique was performedin the standard CC and MLO projections. Implant displaced views were alsoobtained. Computer-aided detection was utilized in the interpretation of thisexamination. TISSUE DENSITY: B - There are scattered areas of fibroglandular density. FINDINGS: Bilateral subpectoral saline implants are noted. No suspicious masses,grouped microcalcifications, or areas of architectural distortion areseen. IMPRESSION: No mammographic evidence of malignancy. BI-RADS CATEGORY: 2 - BENIGN RECOMMENDATION: Screening bilateral mammogram is recommended in 1 year. The patient will receive a lay summary regarding their personal breastdensity per current federal guidelines. Exam Location: [facility], [address], [place], [address], . Report reviewed and signed by : Dr. Viola Tapia on 02/20/2025 10:25 AM.Workstation Name - [id number] -------- FINAL REPORT -------- Dictated By: Viola Tapia Dictated Date: 02/20/2025 10:23 ET Assigned Physician: Viola Tapia Reviewed and Electronically Signed By: Viola Tapia Signed Date: 02/20/2025 10:25 ET Workstation ID: [id number] Transcribed By: Self Edit Transcribed Date: 02/20/2025 10:23 ET us Russ Zapata MD IMG BI PROCEDURES Final Res ult * CT CHEST LOW DOSE RADIATION SCREENING WITHOUT IV CONTRAST (04/05/2024 3:55 PM EDT) Anatomical Region Laterality Modality Computed Tomogra phy 03/21/2024 6:40 PM EDT Narrative 04/05/2024 5:05 PM EDT This is a summary report. The complete report is available in the patient's medical record. If you cannot access the medical record, please contact the sending organization for a detailed fax or copy. CT CHEST NONCONTRAST LOW DOSE SCREENING FOR LUNG MALIGNANCY. History: Smoker screening for lung malignancy. Comparison: None. Findings: Noncontrast low dose chest CT (LDCT) was performed per lung cancer CT screening protocol. The CT scanner utilized low-dose iterative reconstruction technique with automatic exposure control based on patient size. Bilateral breast implants. The lungs demonstrate mild emphysematous changes. There is a 2.5 m subpleural noncalcified nodule right upper lobe. No suspicious pulmonary nodule. ?? No pericardial or pleural effusions. ?? No thoracic adenopathy appreciated. ?? Limited views of the upper abdomen appear within normal limits. Thoracic spine anterior spurring, disc space narrowing, and mild osteopenia. Impression: No suspicious pulmonary nodule. Lung RADS: Category 2: Recommend LDCT in 12 months. Report reviewed and signed by : Dr. Edgar Mohan MD on 04/05/2024 5:05 PM. Workstation Name - [id number] Procedure Note Edgar Escobedo MD - 07/03/2024 This is a summary report. The complete report is available in thepatient's medical record. If you cannot access the medical record, pleasecontact the sending organization for a detailed fax or copy. CT CHEST NONCONTRAST LOW DOSE SCREENING FOR LUNG MALIGNANCY. History: Smoker screening for lung malignancy. Comparison: None. Findings: Noncontrast low dose chest CT (LDCT) was performed per lungcancer CT screening protocol. The CT scanner utilized low-dose iterativereconstruction technique with automatic exposure control based on patientsize. Bilateral breast implants. The lungs demonstrate mild emphysematous changes. There is a 2.5 m subpleural noncalcified nodule right upper lobe. No suspicious pulmonary nodule. No pericardial or pleural effusions. No thoracic adenopathy appreciated. Limited views of the upper abdomen appear within normal limits. Thoracic spine anterior spurring, disc space narrowing, and mildosteopenia. Impression: No suspicious pulmonary nodule. Lung RADS: Category 2: Recommend LDCT in 12 months. Report reviewed and signed by : Dr. Edgar Mohan MD on 45:05 PM. Workstation Name - [id number] Russ Ramirez MD IM CT PROCEDURES Final Resul t from Last 3 Months or Most Recently Relevant to Health Maintenance Insurance [facility] Care Teams Head Of Art Relationship Specialty Start Date End Date Angie Reza PA [address] [place] [address] PCP - General Physician Ball Racker 02/19/25
--- OUTSIDE RECORDS SUMMARY | 2025-03-01 08:36 | XMS_ITS ---
Author Organization Unknown Allergies, Adverse Reactions, Alerts Substance Reaction Status Noinformation - Inactive Medications Medication Instructions Effective Dates (start - sto p) Status NoInformation Completed Problems Problem Status Start date Recorded date Problem Inactive Procedures Procedure Date NoInformation Results No information Plan of Treatment Patient Care team information Name Category Status Period Participants - - Proposed period not known - - Episode of care-focused care team Proposed 07-02-20 - now - Notes Author - Date Note - no notes
--- OUTSIDE RECORDS SUMMARY | 2025-03-01 08:36 | XMS_ITS | Encounter Summary ---
Author Organization [facility] Address [address] [place] [address] Care Team Providers Care Carrier Driver Name Role Phone Suha Oliveros MD Primary Care Provider [phone] Angie Reza Primary Care Provider [phone] Encounter Details Date Type Department Care Team (Late st Contact Info) Description 09/29/2022 Scanned Document [facility] [address] [facility] [address] [place] [phone] Ermias More MD [address] [place] [address] Social History Tobacco Use Types Packs/Day Years [...] Description 05/31/2025 2:00 PM EDT Office Visit [facility] Department of Internal Medicine [address] [place] [phone] Angie Reza PA [address] [place] [address] 06/25/2025 8:00 AM EDT Office [facility] [place] [address] [place] [address] Russ Ramirez MD [address] [address] 07/02/2025 8:15 AM EDT Office Visit [facility] Department of Cardiology [place] [address] [place] [phone] Shahriar Ryan MD [address] [place] [phone] documented as of this encounter Visit Diagnoses Not on filedocumented in this encounter Care Teams Carrier Driver Relationship Specialty Start Date End Date Suha Oliveros MD [address] [place] [address] PCP - General 04/06/19 06/07/23 Angie Reza PA [address] [place] [address] PCP - General Internal Medicine 06/08/23 documented as of this encounter
== END 2025-03-01 08:49 | disposition home or self-care (01) ==
LOC: HO.PMC 08:20
PROVIDERS: PCP Family Medicine; Visit Provider Nurse Practitioner Family
DX: R51.9 Headache, unspecified (principal); G89.29 Other chronic pain; D35.2 Benign neoplasm of pituitary gland; Z79.891 Long term (current) use of opiate analgesic; M47.812 Spondylosis without myelopathy or radiculopathy, cervical region
CPT/HCPCS: 99214

== ENCOUNTER → 2025-03-01 08:19 | Outpatient (BNVA) | payer BC, SELFPAY | PROVIDERS: PCP Family Medicine; Visit Provider Nurse Practitioner Family ==

== ENCOUNTER 2025-03-29 08:17 | Outpatient (AMB) | payer BC, SELFPAY ==
--- NOTE | 2025-03-29 08:25 | A.OFFVIS_ITS ---
Vital Signs 03/29/25 08:31 Height 5 ft 4 in Weight 190 lb 2 oz BMI 32.6 BP 118/66 Blood Pressure Location Rt brachial Position Sitting Pulse 64 Pulse Source Pulse Oximeter Pulse Oximetry (%) 96 Oxygen Delivery Method Room Air Intake Visit Reasons: Pill count Intake Note: Otilia comes in today for a pill count to oxycodone-acetaminophen, patient should have 42 tablets and presents with 42 tablets which she last took today 03/29/25 at 6:30am. Pain today 03/24 Quality Assurance Supervisor Chassis Required: No Accompanied by: Self / Same As Patient Allergies amphetamine [From Mydayis] Allergy (Severe, Verified 03/29/25 08:32) Hypertension dextroamphetamine [From Mydayis] Allergy (Severe, Verified 03/29/25 08:32) Hypertension HPI Comments Details: Patient presents today for a pill count. She is supposed to have #42 pills in her possession and presents with #42 pills. This demonstrates a responsible attitude in regards to the medication regimen. Patient reports reasonable analgesia with no noted side effects. Rates pain at 03/24. Patient denies any fever, chills, shortness of breaths, chest pain or tightness, visual disturbances, weakness, constipation, sedation, nausea, dizziness or urinary retention. She continues to struggle with weight loss and has gained few pounds since last visit. Patient is seeing Nutriotionist and has tried to adjust her diet. Patient reports she has prediabetes and last fasting blood sugar was 99-117 range. Denies any recent cough, cold, infection, fever or other significant changes in medical history since last office visit. [facility] Medical History Chronic headaches COPD (chronic obstructive pulmonary disease) Obesity (BMI 30-39.9) Menopause syndrome Insomnia associated with menopause Diabetes Chronic pain Pituitary adenoma Surgical History H/O breast augmentation Family History Mother Carcinoid tumor Diabetes Hypertension High cholesterol Father Heart disease Social History Alcohol intake: current Alcohol intake frequency: does not drink Patient Tobacco Use Status: Former Tobacco user Review of Systems Const All systems reviewed & are unremarkable except as noted in HPI and below Physical Exam Vital Signs: Last Vital Signs Pulse 64 03/29/25 08:31 BP 118/66 03/29/25 08:31 Pulse Ox 96 03/29/25 08:31 Oxygen Delivery Method Room Air 03/29/25 08:31 BMI result Body Mass Index 32.6 General: Appears afebrile. Alert and oriented. Mood and affect appropriate. Follows and participates in conversation appropriately. Respiratory effort is unlabored. No cough. Able to transition from sit to stand unassisted. Ambulates with bilaterally normal heel strike and toe off. Resp Effort & Inspection: normal respiratory effort, able to speak in complete sentences, no cough, no respiratory distress and symmetric chest movement Extrem General: Yes capillary refill normal, Yes no clubbing, cyanosis or edema and Yes no calf tenderness Psych Appearance: grossly normal and well kempt Mental Status: mental status grossly normal Speech and movement: Normal speech and movement present and Clear speech present Affect: normal affect Attitude: cooperative Thought process: Normal thought process present Thought content: Normal thought content present, suicidality (none), no hallucinations and Depressive thoughts present Insight: Good insight present (Psych) Judgement: Good judgement present (Psych) Assessment & Plan Assessment & Plan (1) Obesity (BMI 30-39.9): Code(s): E66.9 - Obesity, unspecified Category: Medical (2) Prediabetes: Code(s): R73.03 - Prediabetes Category: Medical (3) Chronic headaches: Code(s): R51.9 - Headache, unspecified; G89.29 - Other chronic pain Category: Medical (4) Chronic pain: Code(s): G89.29 - Other chronic pain Category: Medical (5) Chronic, continuous use of opioids: Code(s): F11.90 - Opioid use, unspecified, uncomplicated Category: Medical (6) Pituitary adenoma: Code(s): D35.2 - Benign neoplasm of pituitary gland Category: Medical (7) Cervical spondylosis: Code(s): M47.812 - Spondylosis without myelopathy or radiculopathy, cervical region Category: Medical Plan Patient has shown accountability for her medication regimen and the pill count was accurate. The patient reported no noted side effects and she reports adequate pain relief. There is no evidence of misuse, abuse or diversion at this time. MassPAT reviewed and consistent. Prescription sent for Percocet 10-325 mg TID is sent with advanced date of 04/03/25. Patient has Narcan at home. Continue Dayvigo. Continue daily physical activity, gym sessions, adequate hydration, relaxation and deep breathing exercises, weight optimization, and good posture. We will add Metformin 500 mg PO at bedtime to assist with weight loss. Side effects and precautions were discussed with patient. Patient will continue follow up with Felt Finisher to assist her with weight loss goals. All questions were answered and patient was in agreement of plan. Follow up in 4 weeks for pill count and sooner if needed. Medications: New metformin 500 mg PO BEDTIME 30 days 30 tabs 0RF E66.9 - Obesity, unspecified, R73.03 - Prediabetes Refilled oxycodone-acetaminophen 5-325 mg Partial Fill upon patient request. 2 tabs PO Q8H 30 days PRN 180 tabs 0RF pain D35.2 - Benign neoplasm of pituitary gland, F11.90 - Opioid use, unspecified, uncomplicated, G89.29 - Other chronic pain lemborexant (Dayvigo) 5 mg PO BEDTIME 30 days 30 tabs 2RF N95.1 - Menopausal and female climacteric states Coding Level of Care Code Est Pt Level 4 (87895) Complex EM visit Add On G2211 Diagnoses Obesity (BMI 30-39.9) E66.9 Prediabetes R73.03 Chronic headaches R51.9; G89.29 Chronic pain G89.29 Chronic, continuous use of opioids F11.90 Pituitary adenoma D35.2 Cervical spondylosis M47.812
[2025-03-29 08:31] VITALS: BP 118/66; PULSE 64; O2SAT 96; BMI 32.6
== END 2025-03-29 08:53 | disposition home or self-care (01) ==
LOC: HO.PMC 08:18
PROVIDERS: PCP Family Medicine; Visit Provider Nurse Practitioner Family
DX: G89.29 Other chronic pain (principal); R73.03 Prediabetes; R51.9 Headache, unspecified; Z79.891 Long term (current) use of opiate analgesic; D35.2 Benign neoplasm of pituitary gland; M47.812 Spondylosis without myelopathy or radiculopathy, cervical region; E66.9 Obesity, unspecified
CPT/HCPCS: 99214

== ENCOUNTER → 2025-03-29 08:17 | Outpatient (BNVA) | payer BC, SELFPAY | PROVIDERS: PCP Family Medicine; Visit Provider Nurse Practitioner Family ==

== ENCOUNTER 2025-04-27 08:19 | Outpatient (AMB) | payer BC, SELFPAY ==
--- NOTE | 2025-04-27 08:20 | MHC.OFFVIS ---
Vital Signs 04/27/25 08:29 Height 5 ft 4 in Weight 190 lb 8 oz BMI 32.7 BP 136/65 Blood Pressure Location Rt brachial Position Sitting Pulse 70 Pulse Source Pulse Oximeter Pulse Oximetry (%) 97 Oxygen Delivery Method Room Air Intake Visit Reasons: PILL COUNT Intake Note: Otilia comes in today for a pill count to oxycodone-acetaminophen. Patient should have 42 tablets and presents with 44 tablets which she last took today 04/27/25 at 7am. Pain today 310 Railroad Operator Required: No Accompanied by: Self / Same As Patient Allergies amphetamine [From Mydayis] Allergy (Severe, Verified 04/27/25 08:23) Hypertension dextroamphetamine [From Mydayis] Allergy (Severe, Verified 04/27/25 08:23) Hypertension Medication List - Last Reconciled 04/27/25 by STEPHEN Plasencia albuterol sulfate 90 mcg/actuation 2 puffs inhalation Q6H PRN cholecalciferol (vitamin D3) 25 mcg PO DAILY ibuprofen (Advil) 400 mg PO Q8H lemborexant (Dayvigo) 5 mg PO BEDTIME 30 days lisinopril 20 mg PO DAILY mecobalamin (vitamin B12) 1,000 mcg PO DAILY metformin 500 mg PO BEDTIME 30 days metoprolol succinate ER mg PO naloxone 4 mg/actuation (Narcan) 4 mg intranasal Q3M PRN oxycodone-acetaminophen 5-325 mg 2 tabs PO Q8H PRN 30 days rosuvastatin 10 mg PO BEDTIME sodium fluoride-pot nitrate 1.1-5 % (PreviDent 5000 Enamel Protect) PO DAILY tacrolimus 0.1% topical BID PRN tiotropium-olodaterol 2.5-2.5 mcg/actuation (Stiolto Respimat) 2 puffs inhalation DAILY triamcinolone acetonide 0.1% appl topical DAILY HPI Comments Details: Patient presents today for a pill count. She is supposed to have #42 pills in her possession and presents with #44 pills. This demonstrates a responsible attitude in regards to the medication regimen. Patient reports reasonable analgesia with no noted side effects. Rates pain at 3/10. Patient denies any fever, chills, shortness of breaths, chest pain or tightness, visual disturbances, weakness, sedation, nausea, dizziness or urinary retention except constipation. Patient reports she has regular daily small BMs despite trying OTC and prescribed medications. She recently saw GI provider and was tried on Linzess without relief. She also reports adequate hydration, dietary fiber intake and Senokot. Denies any recent cough, cold, infection, fever or other significant changes in medical history since last office visit. [facility] Medical History Chronic headaches COPD (chronic obstructive pulmonary disease) Obesity (BMI 30-39.9) Menopause syndrome Insomnia associated with menopause Diabetes Chronic pain Pituitary adenoma Surgical History H/O breast augmentation Family History Mother Carcinoid tumor Diabetes Hypertension High cholesterol Father Heart disease Social History Alcohol intake: current Alcohol intake frequency: does not drink Patient Tobacco Use Status: Former Tobacco user Review of Systems Const All systems reviewed & are unremarkable except as noted in HPI and below Physical Exam Vital Signs: Last Vital Signs Pulse 70 04/27/25 08:29 BP 136/65 04/27/25 08:29 Pulse Ox 97 04/27/25 08:29 Oxygen Delivery Method Room Air 04/27/25 08:29 BMI result Body Mass Index 32.7 General: Appears afebrile. Alert and oriented. Mood and affect appropriate. Follows and participates in conversation appropriately. Respiratory effort is unlabored. No cough. Able to transition from sit to stand unassisted. Ambulates with bilaterally normal heel strike and toe off. Psych Appearance: grossly normal and well kempt Mental Status: mental status grossly normal Speech and movement: Normal speech and movement present and Clear speech present Affect: normal affect Attitude: cooperative Thought process: Normal thought process present Thought content: Normal thought content present, suicidality (none), no hallucinations and Depressive thoughts present Insight: Good insight present (Psych) Judgement: Good judgement present (Psych) Results Reviewed Results Reviewed: No imaging reports are available for review today. Assessment & Plan Assessment & Plan (1) Obesity (BMI 30-39.9): Code(s): E66.9 - Obesity, unspecified Category: Medical (2) Chronic headaches: Code(s): R51.9 - Headache, unspecified; G89.29 - Other chronic pain Category: Medical (3) Chronic pain: Code(s): G89.29 - Other chronic pain Category: Medical (4) Chronic, continuous use of opioids: Code(s): F11.90 - Opioid use, unspecified, uncomplicated Category: Medical (5) Pituitary adenoma: Code(s): D35.2 - Benign neoplasm of pituitary gland Category: Medical (6) Cervical spondylosis: Code(s): M47.812 - Spondylosis without myelopathy or radiculopathy, cervical region Category: Medical Plan Patient has shown accountability for her medication regimen and the pill count was accurate. The patient reported no noted side effects and she reports adequate pain relief. There is no evidence of misuse, abuse or diversion at this time. MassPAT reviewed and consistent. Prescription sent for Percocet 10-325 mg TID is sent with advanced date of 05/04/25. Refill for Narcan sent today. Continue Dayvigo. Continue daily physical activity, gym sessions, adequate hydration, relaxation and deep breathing exercises, weight optimization, and good posture. Patient will continue follow up with Wood Fence Installer to assist her with weight loss goals and GI with constipation concerns despite OTC and prescribed treatments, although having small BMs daily. All questions were answered and patient was in agreement of plan. Follow up in 4-5 weeks for pill count and sooner if needed. Medications: Refilled naloxone 4 mg/actuation (Narcan) spray 1 dose into ONE nostril; alternate nostrils w each dose until help arrives 4 mg intranasal Q3M PRN 2 ea 0RF opioid overdose oxycodone-acetaminophen 5-325 mg Partial Fill upon patient request. 2 tabs PO Q8H 30 days PRN 180 tabs 0RF pain D35.2 - Benign neoplasm of pituitary gland, F11.90 - Opioid use, unspecified, uncomplicated, G89.29 - Other chronic pain Coding Level of Care Code Est Pt Level 4 (31934) Complex EM visit Add On G2211 Diagnoses Obesity (BMI 30-39.9) E66.9 Chronic headaches R51.9; G89.29 Chronic pain G89.29 Chronic, continuous use of opioids F11.90 Pituitary adenoma D35.2 Cervical spondylosis M47.812
--- OUTSIDE RECORDS SUMMARY | 2025-04-27 08:26 | XMS_ITS | Encounter Summary ---
Author Organization [facility] Address [address] [place] [address] Care Team Providers Care Database Technician Name Role Phone Suha Oliveros MD Primary Care Provider [phone] Angie Reza Primary Care Provider [phone] Encounter Details Date Type Department Care Team (Late st Contact Info) Description 02/11/2023 Scanned Document [facility] Department of Internal Medicine [place] [address] [place] [phone] Angie Reza PA [address] [place] [address] Social History Tobacco Use Types [...] Care Team (Late st Contact Info) Description 06/05/2025 2:00 PM EDT Office Visit [facility] Department of Internal Medicine [place] [address] [place] [phone] Angie Reza PA [address] [place] [address] 06/25/2025 8:00 AM EDT Office Visit [facility] [place] [address] [place] [phone] Russ Ramirez MD [address] [phone] 07/02/2025 8:15 AM EDT Office Visit [facility] Department of Cardiology [place] [address] [place] [phone] Shahriar Ryan MD [address] [place] [address] 07/30/2025 3:30 PM EDT Office Visit [facility] [address] [facility] [address] [place] [phone] Ermias More MD [address] [phone] documented as of this encounter Visit Diagnoses Not on filedocumented in this encounter Care Teams Database Technician Relationship Specialty Start Date End Date Suha Oliveros MD [address] [place] [address] PCP - General 04/06/19 06/07/23 Angie Reza PA [address] [place] [address] PCP - General Internal Medicine 06/08/23 documented as of this encounter
[2025-04-27 08:29] VITALS: BP 136/65; PULSE 70; O2SAT 97; BMI 32.7
== END 2025-04-27 08:46 | disposition home or self-care (01) ==
LOC: HO.PMC 08:19
PROVIDERS: PCP Family Medicine; Visit Provider Nurse Practitioner Family
DX: G89.29 Other chronic pain (principal); M47.812 Spondylosis without myelopathy or radiculopathy, cervical region; R51.9 Headache, unspecified; Z79.891 Long term (current) use of opiate analgesic; D35.2 Benign neoplasm of pituitary gland; E66.9 Obesity, unspecified
CPT/HCPCS: 99214

== ENCOUNTER 2025-06-22 08:34 | Outpatient (AMB) | payer BC, SELFPAY ==
--- NOTE | 2025-06-22 08:36 | MHC.OFFVIS ---
Vital Signs 06/22/25 08:43 Height 5 ft 4 in Weight 192 lb 8 oz BMI 33.0 BP 140/71 H Blood Pressure Location Rt brachial Position Sitting Pulse 67 Pulse Source Pulse Oximeter Pulse Oximetry (%) 97 Oxygen Delivery Method Room Air Intake Visit Reasons: PILL COUNT Intake Note: Otilia comes in today for a pill count to oxycodone-acetaminophen, patient should have 60 tablets and presents with 60 tablets which she last took 1/2 tablet today 06/22/25 at 6am. Pain today 6.5/10 Patient Transition Specialist Required: No Accompanied by: Self / Same As Patient Allergies amphetamine (From Mydayis) Allergy (Severe, Verified 06/22/25 08:44) Hypertension dextroamphetamine (From Mydayis) Allergy (Severe, Verified 06/22/25 08:44) Hypertension HPI Comments Details: The patient is a 54-year-old female presenting for pill count with concerns regarding opioid-induced constipation and the management of her pain medication dosage. She is supposed to have #60 pills in her possession and presents with #60 pills. This demonstrates a responsible attitude in regards to the medication regimen. Patient reports reasonable analgesia with no noted side effects except constipation. Rates pain at 6.5/10. Patient denies any fever, chills, shortness of breaths, chest pain or tightness, visual disturbances, weakness, sedation, nausea, dizziness or urinary retention except constipation. The patient has been experiencing significant constipation, which she attributes to her opioid medication. This issue has been persistent and significantly impacts her quality of life, leading her to consider reducing her opioid dosage despite the potential increase in pain levels. She has attempted to manage the constipation with medications such as Trulance and MiraLAX, but these have not provided sufficient relief. Recently, she reduced her opioid dosage by half, which resulted in diarrhea, suggesting a possible component of opioid-induced constipation. The patient also reports history of irritable bowel syndrome, which may contribute to her gastrointestinal symptoms. She is undergoing further testing, including stool tests, to better understand her condition. In terms of pain management, the patient has been on a regimen of opioid medication, taking two pills three times a day. She has experimented with reducing her dosage to one pill three times a day, which she tolerated well without significant withdrawal symptoms but increase in her pain which she is willing to tolerate. The patient is considering non-pharmaceutical interventions such as massages and increased physical activity to help manage her pain. She is aware that reducing her opioid dosage may prevent her from returning to higher doses in the future due to the risk of exacerbating constipation. PRIOR: Otilia presents to the office for follow up chronic pain and chronic opioid therapy management. Patient is prescribed oxycodone acetaminophen 5-325mg take 2 tablets every 8 hours as needed. Patient arrived today with the expectation of having 54 pills, she presented 54 pills which were counted in the presence of two staff members and returned to the patient in the original prescription bottle. This demonstrates responsible attitude toward patient's opioid medications. Pain is reported today as 4/10 and last dose of pain medication was taken at 0800 this morning. Patient denies side effects including somnolence, itching, dyspnea, rash, dizziness or weakness. 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 Recently started on new medication and taking Dulcolax as needed. [facility] Medical History Chronic headaches COPD (chronic obstructive pulmonary disease) Obesity (BMI 30-39.9) Menopause syndrome Insomnia associated with menopause Diabetes Chronic pain Pituitary adenoma Surgical History H/O breast augmentation Family History Mother Carcinoid tumor Diabetes Hypertension High cholesterol Father Heart disease Social History Alcohol intake: current Alcohol intake frequency: does not drink Patient Tobacco Use Status: Former Tobacco user Review of Systems Const Details: - Gastrointestinal: Reports severe constipation and diarrhea following opioid dosage reduction. Denies other gastrointestinal symptoms. - General: Denies withdrawal symptoms, reports mild increases in pain levels All systems reviewed & are unremarkable except as noted in HPI and below Physical Exam Vital Signs: Last Vital Signs Pulse 67 06/22/25 08:43 BP 140/71 H 06/22/25 08:43 Pulse Ox 97 06/22/25 08:43 Oxygen Delivery Method Room Air 06/22/25 08:43 BMI result Body Mass Index 33.0 General: Appears afebrile. Alert and oriented. Mood and affect appropriate. Follows and participates in conversation appropriately. Respiratory effort is unlabored. No cough. Able to transition from sit to stand unassisted. Ambulates with bilaterally normal heel strike and toe off. Eyes General: appearance normal, both eyes and all related structures Psych Appearance: grossly normal and well kempt Mental Status: mental status grossly normal Speech and movement: Normal speech and movement present and Clear speech present Affect: normal affect Attitude: cooperative Thought process: Normal thought process present Thought content: Normal thought content present, suicidality (none), no hallucinations and Depressive thoughts present Insight: Good insight present (Psych) Judgement: Good judgement present (Psych) Results Reviewed Results Reviewed: No imaging reports are available for review today. Assessment & Plan Assessment & Plan (1) Obesity (BMI 30-39.9): Code(s): E66.9 - Obesity, unspecified Category: Medical (2) Chronic headaches: Code(s): R51.9 - Headache, unspecified; G89.29 - Other chronic pain Category: Medical (3) Chronic pain: Code(s): G89.29 - Other chronic pain Category: Medical (4) Chronic, continuous use of opioids: Code(s): F11.90 - Opioid use, unspecified, uncomplicated Category: Medical (5) Pituitary adenoma: Code(s): D35.2 - Benign neoplasm of pituitary gland Category: Medical (6) Cervical spondylosis: Code(s): M47.812 - Spondylosis without myelopathy or radiculopathy, cervical region Category: Medical (7) Opioid-induced constipation: Code(s): K59.03 - Drug induced constipation; T40.2X5A - Adverse effect of other opioids, initial encounter Category: Medical Plan Masspat was reviewed and without concerns. No obvious signs of diversion, abuse or misuse of the opioid medications. The plan involves reducing the patient's opioid dosage from two pills three times a day to one pill four times a day to alleviate opioid-induced constipation. The patient will start this new regimen after finishing the current prescription. The reduction aims to manage constipation while maintaining adequate pain control. New prescription for oxycodone/acetaminophen 5-325 mg 1 tab Q6H prn #120 with an advanced date of 07/02/2025. The patient is advised to consider non-pharmaceutical interventions such as massages and increased physical activity to manage pain. These interventions aim to strengthen muscles and provide pain relief without increasing opioid dosage. Patient will follow up as planned with GI provider for further diagnostic testing to evaluate the patient's gastrointestinal symptoms including irritable bowel syndrome. All questions and concerns have been answered and patient agrees with the plan. Follow up in 4-5 weeks for pill count and sooner as needed. Patient was informed and verbally consented to the use of an ambient scribe for clinic note documentation during this visit. Medications: Changed From oxycodone-acetaminophen 5-325 mg Partial Fill upon patient request. 2 tabs PO Q8H 30 days PRN 180 tabs 0RF pain D35.2 - Benign neoplasm of pituitary gland, F11.90 - Opioid use, unspecified, uncomplicated, G89.29 - Other chronic pain To oxycodone-acetaminophen 5-325 mg Partial Fill upon patient request. 1 tab PO QID PRN 120 tabs 0RF pain 30 days D35.2 - Benign neoplasm of pituitary gland, F11.90 - Opioid use, unspecified, uncomplicated, G89.29 - Other chronic pain Refilled lemborexant (Dayvigo) 5 mg PO BEDTIME 30 tabs 2RF 30 days N95.1 - Menopausal and female climacteric states Discontinued metformin Discontinued Reason: Patient no longer taking 500 mg PO BEDTIME 30 days 30 tabs 0RF E66.9 - Obesity, unspecified, R73.03 - Prediabetes Coding Level of Care Code Est Pt Level 4 (80556) Complex EM visit Add On G2211 Diagnoses Obesity (BMI 30-39.9) E66.9 Chronic headaches R51.9; G89.29 Chronic pain G89.29 Chronic, continuous use of opioids F11.90 Pituitary adenoma D35.2 Cervical spondylosis M47.812 Opioid-induced constipation K59.03; T40.2X5A
[2025-06-22 08:43] VITALS: BP 140/71; PULSE 67; O2SAT 97; BMI 33.0
--- OUTSIDE RECORDS SUMMARY | 2025-06-22 08:46 | XMS_ITS | Clinical Summary ---
Author Organization [address] Address [address] [place] [address] Phone Care Team Providers Care Senior Product Integrity Engineer Name Role Phone Angie Reza Primary Care Provider [phone] Immunizations Name Administration Dates Next Due Pfizer SARS-CoV-2 COVID-19, mRNA, LNP-S, preservative free 08/23/2021,02/08/2021,01/17/2021 Surgical History Surgery Date Site/Laterality Comments OTHER SURGICAL HISTORY PROCEDURE: DENIES PREVIOUS SURGERY BREAST SURGERY PROCEDURE:BREAST SURGERY WISDOM TOOTH EXTRACTION PROCEDURE:WISDOM TOOTH EXTRACTION OTHER SURGICAL HISTORY PROCEDURE:tooth implant;COMMENT:X2 COLONOSCOPY 09/07/2022 N/A PROCEDURE:COLONOSCOPY;COMMENT:Proc edure: COLONOSCOPY; Surgeon: Ermias More MD; Location: [facility]; Service: Gastroenterology; Laterality: N/A; Medical History [...] Years (1 of 2 - PCV) 1989 Cervical Cancer Screening: Pap Smear 1991 Zoster Vaccines (1 of 2) 2020 Cholesterol Screening (Lipid Panel) 10/13/2022 Colorectal Cancer Screening: Colonoscopy 10/13/2022 HIV Screening 10/13/2022 Hepatitis C Screening 10/13/2022 Social Influencers of Health Screening 10/13/2022 COVID-19 Vaccine ( season) 2024 08/23/2021, 02/08/2021, 01/17/2021 Depression Screening 11/15/2024 Hypertension/CHF/CAD Annual BMP Blood Test 02/19/2025 Lung Cancer Screening (Low Dose CT) 04/05/2025 04/05/2024 Influenza Vaccine (#1) 2025 Breast Cancer Screening 02/19/2027 02/20/20, 02/17/2024, [...] this topic Medical Devices Implanted Type Area Claims Specialist Device Identifier Shelf Expiration Date Model / [...] density per current federal guidelines. Exam Location: [facility], [address] [place] [address], [address], . Report reviewed and signed by : Dr. Viola Tapia on 02/20/2025 10:25 AM. Workstation Name - [id number] -------- FINAL REPORT -------- Dictated By: Viola Tapia Dictated Date: 02/20/2025 10:23 ET Assigned Physician: Viola Tapia Reviewed and Electronically Signed By: Viola Tapia Signed Date: 02/20/2025 10:25 ET Workstation ID: [id number] Transcribed By: Self Edit Transcribed Date: 02/20/2025 [...] breastdensity per current federal guidelines. Exam Location: [facility], [address] [place] [address], [facility], . Report reviewed and signed by : Dr. Viola Tapia on 02/20/2025 10:25 AM.Workstation Name - [id number] -------- FINAL REPORT -------- Dictated By: Viola Tapia Dictated Date: 02/20/2025 10:23 ET Assigned Physician: Viola Tapia Reviewed and Electronically Signed By: Viola Tapia Signed Date: 02/20/2025 10:25 ET Workstation ID: [id number] Transcribed By: Self Edit Transcribed Date: 02/20/2025 [...] on 04/05/2024 5:05 PM. Workstation Name - [id number] Procedure Note Edgar Escobedo MD - 07/03/2024 [...] MD on 45:05 PM. Workstation Name - [id number] Russ Ramirez MD IMG CT PROCEDURES Final Resul t from Last 3 Months or Most Recently Relevant to Health Maintenance Insurance [facility] Care Teams Senior Product Integrity Engineer Relationship Specialty Start Date End Date Angie Reza PA [address] [place] [address] PCP - General Physician Engineering Technical Analyst 02/19/25
--- OUTSIDE RECORDS SUMMARY | 2025-06-22 08:46 | XMS_ITS | Clinical Summary ---
Author Organization [facility] Address [address] [place] [address] Care Team Providers Care Arch Support Technician Name Role Phone Alethea Chandler MD Primary Care Provider [phone] Allergies Active Allergy Reactions Criticality Noted Date [...] 75 09/07/2022 9:17 AM EDT Temperature 36.5 C (97.7 F) 09/07/2022 8:52 AM EDT Respiratory Rate 8 09/07/2022 9:17 AM EDT [...] Screening (Pap Smear) 08/16/2021 08/16/2018 COVID-19 Vaccine ( - 2023-2 5 season) 2024 08/23/2021, 02/08/2021, 01/17/2021 Influenza Vaccine (#1) 2025 Breast Cancer Screening (Mammogram) 02/16/2026 02/17/2024, 12/22/2022, [...] Advance Directives For more information, please contact: [phone] Latest Code Status on File Code Status Date Activated Date Inactivated Comments Full Code 09/07/2022 9:42 AM 09/07/2022 4:24 PM Thi s code status was ascertained in the following way: discussion with patient . Care Teams Arch Support Technician Relationship Specialty Start Date End Date Alethea Chandler MD [address] [facility] [place] [address] PCP - General Family Medicine 02/07/24
--- OUTSIDE RECORDS SUMMARY | 2025-06-22 08:46 | XMS_ITS | Encounter Summary ---
Author Organization [facility] Address [address] [place] [address] Care Team Providers Care Grain Farmer Name Role Phone Suha Oliveros MD Primary Care Provider Angie Reza Primary Care Provider [phone] Encounter Details Date Type Department Care Team (Late st Contact Info) Description 02/11/2023 Scanned Document [facility] Department of Internal Medicine [place] [address] [place] [address] Angie Reza PA [address] [place] [address] Social History Tobacco Use Types [...] Care Team (Late st Contact Info) Description 06/25/2025 8:00 AM EDT Office Visit [facility] Pulmonary [place] [address] [place] [address] Russ Ramirez MD [address] [address] 07/02/2025 8:15 AM EDT Office Visit [facility] Department of Cardiology [place] [address] [phone] Shahriar Ryan MD [address] [place] [phone] 07/06/2025 10:30 AM EDT Appointment [address] [place] [address] 07/06/2025 10:30 AM EDT Appointment [facility] Gastroenterology Division [address] [place] [phone] Marshall Lala MD [address] [id number] 07/30/2025 3:30 PM EDT Office Visit [facility] [address] [facility] [address] [place] [phone] Ermias More MD [address] [place] [phone] 12/05/2025 7:30 AM EST Office Visit [facility] Department of Internal Medicine [place] [address] [phone] Angie Reza PA [address] [phone] documented as of this encounter Visit Diagnoses Not on filedocumented in this encounter Care Teams Grain Farmer Relationship Specialty Start Date End Date Suha Oliveros MD [address] [place] [address] PCP - General 04/06/19 06/07/23 Angie Reza PA [address] [place] [address] PCP - General Internal Medicine 06/08/23 documented as of this encounter
== END 2025-06-22 09:11 | disposition home or self-care (01) ==
LOC: HO.PMC 08:35
PROVIDERS: PCP Family Medicine; Visit Provider Nurse Practitioner Family
DX: E66.9 Obesity, unspecified (principal); R51.9 Headache, unspecified; G89.29 Other chronic pain; Z79.891 Long term (current) use of opiate analgesic; D35.2 Benign neoplasm of pituitary gland; M47.812 Spondylosis without myelopathy or radiculopathy, cervical region; K59.03 Drug induced constipation; T40.2X5A Adverse effect of other opioids, initial encounter
CPT/HCPCS: 99214

== ENCOUNTER 2025-08-24 08:15 | Outpatient (AMB) | payer BC, SELFPAY ==
--- NOTE | 2025-08-24 08:23 | MHC.OFFVIS ---
Vital Signs 08/24/25 08:37 Height 5 ft 4 in Weight 201 lb 6 oz BMI 34.6 BP 150/82 H Blood Pressure Location Rt brachial Position Sitting Pulse 67 Pulse Source Pulse Oximeter Pulse Oximetry (%) 97 Oxygen Delivery Method Room Air Intake Visit Reasons: PILL COUNT Intake Note: Kimberly comes in today for a pill count to oxycodone-acetaminophen, patient should have 18 tablets and presents with 18 tablets which she last took today 08/24/25 at 6am. Pain today 05/24 Tank Setter Helper Required: No Accompanied by: Self / Same As Patient Allergies amphetamine (From Mydayis) Allergy (Severe, Verified 08/24/25 08:39) Hypertension dextroamphetamine (From Mydayis) Allergy (Severe, Verified 08/24/25 08:39) Hypertension HPI Comments Details: The patient is a 54-year-old female presenting for pill count with concerns regarding opioid-induced constipation and the management of her pain medication dosage. She is supposed to have #18 pills in her possession and presents with #18 pills. This demonstrates a responsible attitude in regards to the medication regimen. Patient reports mild to moderate analgesia with no noted side effects except constipation. Rates pain at 7/10. Patient denies any fever, chills, shortness of breaths, chest pain or tightness, visual disturbances, weakness, sedation, nausea, dizziness or urinary retention except constipation for which she continues to take Miralax. She is also starting Pelvic Floor PT after recent GI testing for irritable bowel syndrome. Denies any recent cough, cold, infection, fever or any significant changes in medical history since last office visit. [facility] Medical History Chronic headaches COPD (chronic obstructive pulmonary disease) Obesity (BMI 30-39.9) Menopause syndrome Insomnia associated with menopause Diabetes Chronic pain Pituitary adenoma Surgical History H/O breast augmentation Family History Mother Carcinoid tumor Diabetes Hypertension High cholesterol Father Heart disease Social History Alcohol intake: current Alcohol intake frequency: does not drink Patient Tobacco Use Status: Former Tobacco user Review of Systems Const All systems reviewed & are unremarkable except as noted in HPI and below Physical Exam Vital Signs: Last Vital Signs Pulse 67 08/24/25 08:37 BP 150/82 H 08/24/25 08:37 Pulse Ox 97 08/24/25 08:37 Oxygen Delivery Method Room Air 08/24/25 08:37 BMI result Body Mass Index 34.6 General: Appears afebrile. Alert and oriented. Mood and affect appropriate. Follows and participates in conversation appropriately. Respiratory effort is unlabored. No cough. Able to transition from sit to stand unassisted. Ambulates with bilaterally normal heel strike and toe off. Psych Appearance: grossly normal and well kempt Mental Status: mental status grossly normal Speech and movement: Normal speech and movement present and Clear speech present Affect: normal affect Attitude: cooperative Thought process: Normal thought process present Thought content: Normal thought content present, suicidality (none), no hallucinations and Depressive thoughts present Insight: Good insight present (Psych) Judgement: Good judgement present (Psych) Results Reviewed Results Reviewed: No imaging reports are available for review today. Assessment & Plan Assessment & Plan (1) Chronic headaches: Code(s): R51.9 - Headache, unspecified; G89.29 - Other chronic pain Category: Medical (2) Chronic pain: Code(s): G89.29 - Other chronic pain Category: Medical (3) Chronic, continuous use of opioids: Code(s): F11.90 - Opioid use, unspecified, uncomplicated Category: Medical (4) Pituitary adenoma: Code(s): D35.2 - Benign neoplasm of pituitary gland Category: Medical (5) Cervical spondylosis: Code(s): M47.812 - Spondylosis without myelopathy or radiculopathy, cervical region Category: Medical Plan Masspat was reviewed and without concerns. No obvious signs of diversion, abuse or misuse of the opioid medications. New prescription for oxycodone/acetaminophen 5-325 mg 1 tab Q6H prn #90 sent with an advanced date of 08/28/2025. Patient has Narcan at home. All questions and concerns have been answered and patient agrees with the plan. Follow up in 4-5 weeks for pill count and sooner as needed. Medications: Refilled oxycodone-acetaminophen 5-325 mg Partial Fill upon patient request. 1 tab PO TID PRN 90 tabs 0RF pain 30 days D35.2 - Benign neoplasm of pituitary gland, F11.90 - Opioid use, unspecified, uncomplicated, G89.29 - Other chronic pain Coding Level of Care Code Est Pt Level 4 (23173) Complex EM visit Add On G2211 Diagnoses Chronic headaches R51.9; G89.29 Chronic pain G89.29 Chronic, continuous use of opioids F11.90 Pituitary adenoma D35.2 Cervical spondylosis M47.812
[2025-08-24 08:37] VITALS: BP 150/82; PULSE 67; O2SAT 97; BMI 34.6
== END 2025-08-24 08:50 | disposition home or self-care (01) ==
LOC: HO.PMC 08:15
PROVIDERS: PCP Family Medicine; Visit Provider Nurse Practitioner Family
DX: R51.9 Headache, unspecified (principal); G89.29 Other chronic pain; Z79.891 Long term (current) use of opiate analgesic; D35.2 Benign neoplasm of pituitary gland; M47.812 Spondylosis without myelopathy or radiculopathy, cervical region
CPT/HCPCS: 99214

== ENCOUNTER 2025-09-28 08:15 | Outpatient (AMB) | payer BC, SELFPAY ==
--- OUTSIDE RECORDS SUMMARY | 2025-09-24 13:30 | XMS_ITS | Encounter Summary ---
Author Organization [facility] Address [address] [place] [address] Care Team Providers Care Guest Service Team Leader Name Role Phone Angie Reza Primary Care Provider [phone] Reason for Visit * Reason Comments PT Treatment * Rehabilitation (Elective) - Authorized Specialty Diagnoses / Procedures Referred By Amber leon Referred To Contact Rehabilitation Diagnoses Pelvic floor dysfunction Ermias More MD [address] [place] [address] Phone: tel: fax: Ramesh Raymond, PT [address] [facility] [address] [place] [address] Phone: tel: fax: Referral ID Status Reason Start Date Expiration Date Visits Requested Visits Authorized [id number] Authorized Support Services 11/14/2025 200 200 Encounter Details Date Type Department Care Team (Late st Contact Info) Description 09/24/2025 1:30 PM EST Treatment [facility] 2 [facility] [place] [address] Ermias More MD [address] [place] [address] Ramesh Raymond, PT [address] [facility] [address] [place] [address] PFD (pelvic floor dysfunction) (Primary Dx); Dyssynergic defecation; Constipation, unspecified constipation type Social History Tobacco Use Types Packs/Day Years Used Date Smoking Tobacco: Former Cigarettes 1 38 1 2021 Smokeless Tobacco: Never Alcohol Use Standard [...] PM EDT documented as of this encounter Miscellaneous Notes * Daily/Treatment Note - Ramesh Raymond, PT - 09/24/2025 2:27 PM EST Physical Therapy Daily Note Diagnoses ICD-10-CM 1. PFD (pelvic floor dysfunction) M62.89 2. Dyssynergic defecation K59.02 3. Constipation, unspecified constipation type K59.00 Interpretation Services: Subjective: Daily Note Subjective - WedSeptember 24, 2025 Row Name Treatment from 09/24/2025 in [facility] Subjective Subjective I have the insert . OTHER Precautions none Treatment Performed: Interventions - WedSeptember 24, 2025 Row Name Treatment from 09/24/2025 in [facility] Therapeutic activities Justification other 1 Reviewed patient education and training to improve bowel control with the use of the following interventions consisting of pelvic floor muscle retraining and strengthening, core strengthening as needed, LE hip extension strengthening, breath control including lower extremity elevation with use oflight yoga blocks and diaphragmatic breath control and time voiding techniques. Patient Education Reviewed patient education. Home Exercise Program see scanned document;reviewed Therapeutic Procedures Justification other 1 09/24/2025 Otilia Woodruff Every other Day Pelvic Floor Exercises To perform the exercises, close up and draw the muscles around the anal sphincter area as if you are stopping yourself from passing gas, in a sitting position. 1. Try not to hold your breath and the exercises areto be performed using a sub maximal muscle contraction or ???squeeze??? effort. If you are not certain that you are utilizing a sub maximal ???squeeze??? effort, squeeze once as hard as you can for 5seconds and then reduce the squeeze effort by 50% and use this as a gauge when performing the exercises. A. For the exercise, tighten the anal sphincter area for 5 seconds, rest for 5 seconds, perform 20-30 repetitions. The exercises are to be performed as follows: 20-30 repetitions of A. in the amand 20- 30 repetitions of A. in the pm. Utilize the biofeedback insert in the pm session only. (optional) IN ADDITION, EVERY TIME YOU DEFECATE, UTILIZE THE YOGA BLOCKS UNDER BOTH FEET TO FACILITATE DEFECATION AND INCORPORATE DIAPHRAGMATIC BREATHING TO IMPROVE BOWEL ELIMINATION. Patient education Initiated PME HEP. Assessment/ Plan: Daily Assessment and Plan - WedSeptember 24, 2025 Row Name Treatment from 09/24/2025 in [facility] Assessment/ Plan Assessment Impaired pelvic floor muscle control, issue with dyssynergia noted with simulated defecation and sitting, difficulty with pelvic floor relaxation with submaximal PME is noted. Plan Initiated and reviewed HEP every other day in sitting written copy reviewed and provided to patient to follow for home use. Objective Measurements: Physical Findings - WedSeptember 24, 2025 Row Name Treatment from 09/24/2025 in [facility] Physical Findings Observations Noted pelvic floor muscle resting tone in sitting, +1.8 microvolt's, uV. OTHER Additional info Maximal and 50% squeeze effort in sitting 5/5 seconds, W/R phases: Maximum effort +10.8/+11.6 (eyes open) and +10.3/+8.5 (eyes closed) and 50% effort +3.5/+7.2 and +7.8/+5.9, +5.8/+5.9 and (patient counting out loud) +5.2/+8.0 (eyes closed) microvolts, uV. documented in this encounter Plan of Treatment Scheduled Referrals Name Type Priority Associated Diagnoses Orde r Schedule Amb Referral to Therapy Services (PT or OT) Outpatient Referral Routine Pelvic floor dysfunction Ordered: 07/30/2025 documented as of this encounter Goals Goal Patient Goal Type Associated Problems Recent Progress Patient-Stated? Author PT STG 1 Physical Therapy No Ramesh Raymond, PT Note: PF 1. Initiate and complete the pelvic floor biofeedback assessment with the use of the [facility] PG 6340 anorectal biofeedback insert x 3 weeks. PT LTG 2 Physical Therapy No Ramesh Raymond, PT Note: PF 2. Provide patient education and training to improve bowel control with the use of the following interventions consisting of pelvic floor muscle retraining and strengthening, core strengthening as needed, LE hip extension strengthening, breath control including lower extremity elevation with use of light yoga blocks and diaphragmatic breath control and time voiding techniques x 12 weeks. PT LTG 3 Physical Therapy No Ramesh Raymond, PT Note: PF 3. Improve the initial PFDI Survey Score from 110.14 to 45 or less at the time of discharge x 12 weeks. PT LTG 4 Physical Therapy No Ramesh Raymond, PT Note: PF 4. Improve pelvic floor muscle contractility and pelvic floor muscle resting tone, as needed to +12.0 -+15.0 V respectively and +3.0 V x 12 weeks. PT LTG 5 Physical Therapy No Ramesh Raymond, PT Note: PF 5. Improve simulated defecation and sitting with lower extremity elevation and diaphragmatic breath control to -2.00 V x 12 weeks. documented as of this encounter Visit Diagnoses Diagnosis PFD (pelvic floor dysfunction)- Primary Dyssynergic defecation Constipation, unspecified constipation type documented in this encounter Care Teams Guest Service Team Leader Relationship Specialty Start Date End Date Angie Reza PA [address] [place] [address] PCP - General Internal Medicine 06/08/23 documented as of this encounter
--- NOTE | 2025-09-28 08:16 | A.OFFVIS_ITS ---
Vital Signs 09/28/25 08:28 Height 5 ft 4 in Weight 200 lb 6 oz BMI 34.4 BP 145/69 H Blood Pressure Location Rt brachial Position Sitting Pulse 69 Pulse Source Pulse Oximeter Pulse Oximetry (%) 95 Oxygen Delivery Method Room Air Intake Visit Reasons: Pill Count Intake Note: Otilia comes in today for a pill count to oxycodone-acetaminophen, patient should have 0 tablets and presents with 3 tablets which she last took 1/2 tablet today 09/28/25 at 5am. Pain today 6.5/10 Thermo Cementing Folder Operator Required: No Accompanied by: Self / Same As Patient Allergies amphetamine (From Mydayis) Allergy (Severe, Verified 09/28/25 08:28) Hypertension dextroamphetamine (From Mydayis) Allergy (Severe, Verified 09/28/25 08:28) Hypertension HPI Comments Details: The patient is a 54-year-old female presenting for pill count. She is supposed to have #0 pills in her possession and presents with #3 pills. This demonstrates a responsible attitude in regards to the medication regimen. Patient reports reasonable analgesia with no noted side effects except constipation. Rates pain at 6.5/10. Patient denies any fever, chills, shortness of breaths, chest pain or tightness, visual disturbances, weakness, sedation, nausea, dizziness or urinary retention. She reports resolved constipation since opioid dose was decreased to three times daily as needed. Denies any recent cough, cold, infection, fever or any significant changes in medical history since last office visit. [facility] Medical History Chronic headaches COPD (chronic obstructive pulmonary disease) Obesity (BMI 30-39.9) Menopause syndrome Insomnia associated with menopause Diabetes Chronic pain Pituitary adenoma Surgical History H/O breast augmentation Family History Mother Carcinoid tumor Diabetes Hypertension High cholesterol Father Heart disease Social History Alcohol intake: current Alcohol intake frequency: does not drink Patient Tobacco Use Status: Former Tobacco user Review of Systems Const All systems reviewed & are unremarkable except as noted in HPI and below Physical Exam Vital Signs: Last Vital Signs Pulse 69 11/14/25 08:28 BP 145/69 H 09/28/25 08:28 Pulse Ox 95 09/28/25 08:28 Oxygen Delivery Method Room Air 09/28/25 08:28 BMI result Body Mass Index 34.4 General: Appears afebrile. Alert and oriented. Mood and affect appropriate. Follows and participates in conversation appropriately. Respiratory effort is unlabored. No cough. Able to transition from sit to stand unassisted. Ambulates with bilaterally normal heel strike and toe off. Eyes General: appearance normal, both eyes and all related structures Resp Effort & Inspection: normal respiratory effort, able to speak in complete sentences, no cough and no respiratory distress Psych Appearance: grossly normal and well kempt Mental Status: mental status grossly normal Speech and movement: Normal speech and movement present and Clear speech present Affect: normal affect Attitude: cooperative Thought process: Normal thought process present Thought content: Normal thought content present, suicidality (none), no hallucinations and Depressive thoughts present Insight: Good insight present (Psych) Judgement: Good judgement present (Psych) Results Reviewed Results Reviewed: No imaging reports are available for review today. Assessment & Plan Assessment & Plan (1) Chronic headaches: Code(s): R51.9 - Headache, unspecified; G89.29 - Other chronic pain Category: Medical (2) Chronic pain: Code(s): G89.29 - Other chronic pain Category: Medical (3) Chronic, continuous use of opioids: Code(s): F11.90 - Opioid use, unspecified, uncomplicated Category: Medical (4) Pituitary adenoma: Code(s): D35.2 - Benign neoplasm of pituitary gland Category: Medical (5) Cervical spondylosis: Code(s): M47.812 - Spondylosis without myelopathy or radiculopathy, cervical region Category: Medical Plan Masspat was reviewed and without concerns. No obvious signs of diversion, abuse or misuse of the opioid medications. New prescription for oxycodone/acetaminophen 5-325 mg 1 tab TID prn #90 sent today. Patient has Narcan at home. Refill sent for Dayvigo. All questions and concerns have been answered and patient agrees with the plan. Follow up in 4 weeks for pill count and sooner as needed. Medications: Refilled lemborexant (Dayvigo) 5 mg PO BEDTIME 30 tabs 2RF 30 days N95.1 - Menopausal and female climacteric states oxycodone-acetaminophen 5-325 mg Partial Fill upon patient request. 1 tab PO TID PRN 90 tabs 0RF pain 30 days D35.2 - Benign neoplasm of pituitary gland, F11.90 - Opioid use, unspecified, uncomplicated, G89.29 - Other chronic pain Coding Level of Care Code Est Pt Level 4 (72975) Complex EM visit Add On G2211 Diagnoses Chronic headaches R51.9; G89.29 Chronic pain G89.29 Chronic, continuous use of opioids F11.90 Pituitary adenoma D35.2 Cervical spondylosis M47.812
--- OUTSIDE RECORDS SUMMARY | 2025-09-28 08:21 | XMS_ITS | Encounter Summary ---
Author Organization [facility] Address [address] [place] [address] Care Team Providers Care Harness Builder Name Role Phone Suha Oliveros MD Primary Care Provider Angie Reza Primary Care Provider [phone] Encounter Details Date Type Department Care Team (Late st Contact Info) Description 02/11/2023 Scanned Document [facility] Department of Internal Medicine [place] [address] [place] [address] Angie Reza PA [address] [place] [address] Social History Tobacco Use Types [...] as of this encounter Plan of Treatment Not on file documented as of this encounter Visit Diagnoses Not on filedocumented in this encounter Care Teams Harness Builder Relationship Specialty Start Date End Date Suha Oliveros MD [address] [place] [address] PCP - General 04/06/19 06/07/23 Angie Reza PA [address] [address] PCP - General Internal Medicine 06/08/23 documented as of this encounter
--- OUTSIDE RECORDS SUMMARY | 2025-09-28 08:21 | XMS_ITS | Encounter Summary ---
Author Organization [facility] Address [address] [place] [address] Care Team Providers Care Diamond Powder Mixer Name Role Phone Suha Oliveros MD Primary Care Provider [phone] Angie Reza Primary Care Provider [phone] Encounter Details Date Type Department Care Team (Late st Contact Info) Description 02/11/2023 Scanned Document [facility] Department of Internal Medicine [place] [address] [place] [address] Angie Reza PA [address] [place] [address] Social History Tobacco Use Types [...] on filedocumented in this encounter Care Teams Diamond Powder Mixer Relationship Specialty Start Date End Date Suha Oliveros MD [address] [place] [address] PCP - General 04/06/19 06/07/23 Angie Reza PA [address] [address] PCP - General Internal Medicine 06/08/23 documented as of this encounter
--- OUTSIDE RECORDS SUMMARY | 2025-09-28 08:22 | XMS_ITS | Clinical Summary ---
Author Organization [address] Address [address] [place] [address] Phone Care Team Providers Care Lead Business Systems Analyst Name Role Phone Angie Reza Primary Care Provider [phone] Immunizations Immunization Administration Dates Next Due Pfizer SARS-CoV-2 COVID-19, mRNA, LNP-S, preservative free 08/23/2021,02/08/2021,01/17/2021 Surgical History Surgery Date Site/Laterality Comments OTHER SURGICAL HISTORY PROCEDURE: DENIES PREVIOUS SURGERY BREAST SURGERY PROCEDURE:BREAST SURGERY WISDOM TOOTH EXTRACTION PROCEDURE:WISDOM TOOTH EXTRACTION OTHER SURGICAL HISTORY PROCEDURE:tooth implant;COMMENT:X2 COLONOSCOPY 09/07/2022 N/A PROCEDURE:COLONOSCOPY;COMMENT:Proc edure: COLONOSCOPY; Surgeon: Ermias More MD; Location: [facility]; Service: Gastroenterology; Laterality: N/A; Medical History [...] Health Maintenance Due Date Last Done Comments Colorectal Cancer Screening: Colonoscopy 1970 Hepatitis B Vaccines (1 of 3 - 19+ 3-dose series) 1989 Pneumococcal Vaccine: 50+ Years (1 of 2 - PCV) 1989 Cervical Cancer Screening: Pap Smear 1991 RSV Immunization Adult Patients (1 - Risk 50-74 years 1-dose series) 2020 Zoster Vaccines (1 of 2) 2020 Cholesterol Screening (Lipid Panel) 10/13/2022 HIV Screening 10/13/2022 Hepatitis C Screening 10/13/2022 Social Influencers of Health Screening 10/13/2022 Depression Screening 11/15/2024 Hypertension/CHF/CAD Annual BMP Blood Test 02/19/2025 Lung Cancer Screening (Low Dose CT) 04/05/2025 04/05/2024 COVID-19 Vaccine ( season) 2025 08/23/2021, 02/08/2021, 01/17/2021 Influenza Vaccine (#1) 2025 Breast Cancer Screening 02/19/2027 02/20/20 25, 02/17/2024, 12/22/2022, Additional history exists DTaP,Tdap,and Td [...] this topic Medical Devices Implanted Type Area Laundry Tech Device Identifier Shelf Expiration Date Model / [...] density per current federal guidelines. Exam Location: [facility], [address] [place] [address], [facility], . Report reviewed and signed by : Dr. Viola Tapia on 02/20/2025 10:25 AM. Workstation Name - [id number] -------- FINAL REPORT -------- Dictated By: Viola Tapia Dictated Date: 02/20/2025 10:23 ET Assigned Physician: Viola Tapia Reviewed and Electronically Signed By: Viola Tapia Signed Date: 02/20/2025 10:25 ET Workstation ID: [id number] Transcribed By: Self Edit Transcribed Date: 02/20/2025 [...] breastdensity per current federal guidelines. Exam Location: [address], [facility], . Report reviewed and signed by : Dr. Viola Tapia on 02/20/2025 10:25 AM.Workstation Name - [id number] -------- FINAL REPORT -------- Dictated By: Viola Tapia Dictated Date: 02/20/2025 10:23 ET Assigned Physician: Viola Tapia Reviewed and Electronically Signed By: Viola Tapia Signed Date: 02/20/2025 10:25 ET Workstation ID: [id number] Transcribed By: Self Edit Transcribed Date: 02/20/2025 [...] on 04/05/2024 5:05 PM. Workstation Name - [id number] Procedure Note Edgar Escobedo MD - 07/03/2024 [...] MD on 45:05 PM. Workstation Name - [id number] Russ Ramirez MD IMG CT PROCEDURES Final Resul t from Last 3 Months or Most Recently Relevant to Health Maintenance Insurance [facility] Care Teams Lead Business Systems Analyst Relationship Specialty Start Date End Date Angie Reza PA [address] [place] [address] PCP - General Physician Tool Crib Clerk 02/19/25
--- OUTSIDE RECORDS SUMMARY | 2025-09-28 08:22 | XMS_ITS | Encounter Summary ---
Author Organization [facility] Address [address] [place] [address] Care Team Providers Care Gi Technician Name Role Phone Angie Reza Primary Care Provider [phone] Encounter Details Date Type Department Care Team (Late st Contact Info) Description 09/03/2025 Scanned Document [facility] Pulmonary [place] 85 [facility] [address] [place] [phone] Russ Ramirez MD [address] [phone] Social History Tobacco Use Types Packs/Day Years [...] on filedocumented in this encounter Care Teams Gi Technician Relationship Specialty Start Date End Date Angie Reza PA [address] [place] [address] PCP - General Internal Medicine 06/08/23 documented as of this encounter
--- OUTSIDE RECORDS SUMMARY | 2025-09-28 08:22 | XMS_ITS | Encounter Summary ---
Author Organization [facility] Address [address] [place] [address] Care Team Providers Care Acquisition Professional Name Role Phone Angie Reza Primary Care Provider [phone] Encounter Details Date Type Department Care Team (Late st Contact Info) Description 08/16/2025 Scanned Document [facility] Pulmonary [place] 85 [facility] [address] [place] [phone] Russ Ramirez MD [address] [id number] Social History Tobacco Use Types Packs/Day Years [...] on filedocumented in this encounter Care Teams Acquisition Professional Relationship Specialty Start Date End Date Angie Reza PA [address] [place] [address] PCP - General Internal Medicine 06/08/23 documented as of this encounter
--- OUTSIDE RECORDS SUMMARY | 2025-09-28 08:22 | XMS_ITS | Encounter Summary ---
Author Organization [facility] Address [address] [place] [address] Care Team Providers Care Bus Greaser Name Role Phone Angie Reza Primary Care Provider [phone] Encounter Details Date Type Department Care Team (Late st Contact Info) Description 04/16/2025 Scanned Document [facility] Pulmonary [place] 85 [facility] [address] [place] [phone] Russ Ramirez MD [address] [id number] Social History Tobacco Use Types Packs/Day Years [...] on filedocumented in this encounter Care Teams Bus Greaser Relationship Specialty Start Date End Date Angie Reza PA [address] [place] [address] PCP - General Internal Medicine 06/08/23 documented as of this encounter
--- OUTSIDE RECORDS SUMMARY | 2025-09-28 08:22 | XMS_ITS | Encounter Summary ---
Author Organization [facility] Address [address] [place] [address] Care Team Providers Care Infectious Disease Technician Name Role Phone Angie Reza Primary Care Provider [phone] Encounter Details Date Type Department Care Team (Latest Contact Info) Description 09/24/2025 Travel Social History Tobacco Use Types Packs/Day Years Used Date Smoking Tobacco: Former Cigarettes 1 38 1 4 - 2021 Smokeless Tobacco: Never Alcohol Use [...] on file documented as of this encounter Goals Goal Patient Goal Type Associated Problems Recent Progress Patient-Stated? Author PT STG 1 Physical Therapy No Ramesh Raymond, PT Note: PF 1. Initiate and complete the pelvic floor biofeedback assessment with the use of the CMT PG 6340 anorectal biofeedback insert x 3 [...] on filedocumented in this encounter Care Teams Infectious Disease Technician Relationship Specialty Start Date End Date Angie Reza PA [address] [place] [address] PCP - General Internal Medicine 06/08/23 documented as of this encounter
--- OUTSIDE RECORDS SUMMARY | 2025-09-28 08:22 | XMS_ITS | Clinical Summary ---
Author Organization [facility] Address [address] [place] [address] Care Team Providers Care Insurance Sales Specialist Name Role Phone Alethea Chandler MD Primary Care Provider [phone] Allergies Active Allergy Reactions Criticality Noted Date [...] Smear) 08/16/2021 08/16/2018 COVID-19 Vaccine ( - 2024-2 6 season) 2025 08/23/2021, 02/08/2021, 01/17/2021 Influenza Vaccine [...] Advance Directives For more information, please contact: [phone] Latest Code Status on File Code Status Date Activated Date Inactivated Comments Full Code 09/07/2022 9:42 AM 09/07/2022 4:24 PM Thi s code status was ascertained in the following way: discussion with patient . Care Teams Insurance Sales Specialist Relationship Specialty Start Date End Date Alethea Chandler MD [address] [facility] [place] [address] PCP - General Family Medicine 02/07/24
--- OUTSIDE RECORDS SUMMARY | 2025-09-28 08:22 | XMS_ITS | Clinical Summary ---
Author Organization [facility] Address [address] [place] [address] Care Team Providers Care Retention Specialist Name Role Phone Angie Reza Primary Care Provider [phone] Allergies Active Allergy Reactions Criticality Noted Date Comments Bee Venom Swelling Medium 04/14/2019 [place] triamcinolone (KENALOG) 0.1 % cream MIX ENTIRE CONTENTS, 80 GM WITH A JAR OF CERAVE CREAM AND APPLY EVERY DAY AFTER BATH 023 Active cholecalciferol (CHOLECALCIFEROL) 125 MCG (5000 UT) capsule Take 1 capsule (5,000 Units total) by mouth. Active oxyCODONE-acetaminophe n (PERCOCET) 5-325 mg per tablet Take 2 tablets by mouth 3 times daily (every 8 hours) as needed. for pain 023 Active Lemborexant 5 MG TabIndications:Insomni a, unspecified type Take 1-2 tabs PO once daily at bedtime as needed for insomnia 30 tablet 3 023 Active PreviDent 5000 Enamel Protect 1.1-5 % Gel PLEASE SEE ATTACHED FOR DETAILED DIRECTIONS 024 Active albuterol (PROVENTIL HFA; VENTOLIN HFA) 108 (90 Base) MCG/ACT inhalerIndications:Cig arette nicotine dependence in remission Inhale 2 puffs 4 times daily (every 6 hours) as needed for wheezing. 1 each 3 024 Active metoPROLOL SUCCINATE (TOPROL-XL) 50 MG 24 hr tabletIndications:Sinu s tachycardia Take 2 tablets (100 mg total) by mouth daily. 60 tablet 11 024 Active fluticasone-vilanterol (BREO ELLIPTA) 100-25 MCG/ACT inhalerIndications:Chr onic obstructive pulmonary disease, unspecified COPD type (HCC) Inhale 1 puff daily. 1 each 11 Active plecanatide (Trulance) 3 MG tablet Take 3 mg by mouth daily. Active rosuvastatin (CRESTOR) 10 MG tabletIndications:Fami ly history of familial hypercholesterolemia TAKE 1 TABLET BY MOUTH EVERY DAY 90 tablet 3 025 Active lisinopril (PRINIVIL,ZeSTRIL) 20 MG tabletIndications:Prim omer hypertension TAKE 1 TABLET BY MOUTH EVERY DAY 90 tablet 3 025 Active lisinopril (PRINIVIL,ZeSTRIL) 20 MG tabletIndications:Prim omer hypertension Take 1 tablet (20 mg total) by mouth daily. 30 tablet 11 024 09/26 Discontinued Active Problems Problem Noted Date Diagnosed Date Fatigue 12/26/2024 Chronic obstructive pulmonary disease 05/29/2024 Insomnia 06/08/2023 Pituitary microadenoma 02/28/2023 Anxiety 02/28/2023 02/28/2023 Attention deficit hyperactiv ity disorder (ADHD), predominantly inattentive type 02/28/2023 02/28/2023 Obesity (BMI 30.0-34.9) 02/28/2023 02/29/20 23 Assessment & Plan (07/02/2025 8:18 AM EDT): Weight loss is indicated Assessment & Plan (03/11/2023 8:45 AM EDT): Weight loss is indicated HLD (hyperlipidemia) 02/28/2023 02/28/2023 Assessment & Plan (07/02/2025 8:19 AM EDT): I did review lipids from last month. They are excellent. Will follow longitudinally we will see again in 6 months Assessment & Plan (03/11/2023 8:56 AM EDT): Patient is concerned about triglycerides. Otherwise her lipids are satisfactory. I told her to take some [id number]-[id number] fish oil. We will check lipids in 6 months Primary hypertension 02/28/2023 02/28/2023 Assessment & Plan (07/02/2025 8:17 AM EDT): Blood pressure satisfactory on present regimen. Will follow to we will see again in 6 months. Assessment & Plan (03/11/2023 8:45 AM EDT): Blood pressure is satisfactory on present regimen. IBS (irritable bowel syndrome) 02/28/2023 0 02/28/2023 Menopause 02/28/2023 02/28/2023 Migraine headache 02/28/2023 02/28/2023 Nicotine dependence 02/28/2023 02/28/2023 Assessment & Plan (07/02/2025 8:18 AM EDT): Stop smoking Prediabetes 02/28/2023 02/28/2023 Vitamin D deficiency 02/28/2023 [...] Colonoscopy to rule out malignancy/IBD. 3. Daily micronesian yogurt. 4. Lemon david tea. If measures unsuccessful, will have her meet with kitchen manager to do low FODMAPS diet. We can [...] Problem Noted Date Diagnosed Date Resolved Date Snoring 12/26/2024 06/25/2025 Screening for lung cancer 03/21/2024 Encounters Date Type Department Care Team Description 09/24/2025 1:30 PM EST Treatment [facility] [address] [place] [address] Ermias More MD Durst, Matthew D, PT PFD (pelvic floor dysfunction) (Primary Dx); Dyssynergic defecation; Constipation, unspecified constipation type 09/24/2025 Travel 09/13/2025 9:45 AM EDT Evaluation [facility] [address] [place] [address] Ermias More MD Durst, Matthew D, PT PFD (pelvic floor dysfunction) (Primary Dx); Dyssynergic defecation; Constipation, unspecified constipation type 09/03/2025 Scanned Document [facility] Pulmonary [address] [place] [phone] Russ Ramirez MD 08/28/2025 2:40 PM EDT Ancillary Procedure [facility] Radiology [address] [place] [phone] Provider, File Room 08/16/2025 Scanned Document [facility] Pulmonary [address] [phone] Russ Ramirez MD 07/30/2025 3:30 PM EDT Office Visit [facility] [address] [facility] [address] [place] [phone] Ermias More MD Constipation, unspecified constipation type (Primary Dx); Pelvic floor dysfunction 07/11/2025 11:15 AM EDT Ancillary Procedure [facility] Radiology [address] [place] [address] Provider, File Room 07/06/2025 10:25 AM EDT - 07/06/2025 11:59 PM EDT Hospital Encounter [facility] Gastroenterology Division [address] [place] [address] Marshall Lala MD Diarrhea, unspecified type (Primary Dx) Discharge Disposition: Home or Self Care 07/06/2025 Travel 07/02/2025 8:15 AM EDT Office Visit [facility] Department of Cardiology [place] [address] [place] [phone] Shahriar Ryan MD Hyperlipidemia, unspecified hyperlipidemia type (Primary Dx); Primary hypertension ; Nicotine dependence in remission, unspecified nicotine product type; Obesity (BMI 30.0-34.9) 2025 Travel from Last 3 Months Immunizations Immunization Administration Dates Next Due Tdap 05/17/2017 Family History Medical History Relation Name Comments Alcohol abuse Father Gerardo Heart attack Father Gerardo Heart disease Father Gerardo Aneurysm Maternal Aunt Jeri Blood Clots Maternal Aunt Jeri Colon polyps Maternal Aunt Jeri Hyperlipidemia Maternal Aunt Jeri Hypertension Maternal Aunt Jeri Irritable bowel syndrome Maternal Aunt Jeri Ulcerative colitis Maternal Aunt Jeri Clotting disorder Maternal Grandmother Cecy Dementia Maternal Grandmother Cecy Cancer, other Mother Tucker Carcinoid tumo r of the intestines diagnosed in 2017 Cholelithiasis Mother Tucker Colon polyps Mother Tucker First presented at age 65 Diabetes Mother Tucker Hyperlipidemia Mother Tucker Hypertension Mother Tucker Alcohol abuse Sister Nataliya Colon polyps Sister Nataliya Hyperlipidemia Sister Nataliya Hypertension Sister Nataliya Irritable bowel syndrome Sister Nataliya Substance Abuse Sister Nataliya Alcohol Relation Name Status Comments Father Gerardo Maternal Aunt Jeri Alive Maternal Grandmother Cecy Mother Tucker Alive Sister Nataliya Social History Tobacco Use Types Packs/Day Years [...] Sign Reading Time Taken Comments Blood Pressure 120/70 07/30/2025 3:26 PM EDT Pulse 84 07/30/2025 3:26 PM EDT Temperature 36.4 C (97.6 F) 12/26/2024 9:00 AM EST Respiratory Rate - - Oxygen Saturation 98% 07/02/2025 8:08 AM EDT Inhaled Oxygen Concentration - - Weight 89.4 kg (197 lb) 07/30/2025 3:26 PM EDT Height 162.6 cm (5' 4 ) 07/30/2025 3:26 PM EDT Body Mass Index 33.81 07/30/2025 3:26 PM EDT Plan of Treatment Health Maintenance Due Date Last Done Comments Hepatitis C Virus Screening 1970 HIV Screening 1983 Hepatitis B Vaccines (1 of 3 - 19+ 3-dose series) 1989 Pneumococcal Vaccines 50+ (1 of 2 - PCV) 1989 Lung Cancer Screening (LDCT) 2020 RSV Vaccine 50 years and old er and Patients (1 - Risk 50-74 years 1-dose series) 2020 Zoster (Shingles) Vaccine (1 of 2) 2020 Influenza Vaccine 06/15/2025 COVID-19 Vaccine (4 - 2024-2 6 season) 2025 08/23/2021, 02/08/2021, 01/17/2021 Mammogram 02/22/2026 02/23/2024, 02/05/2023, 11/03/2021 DTaP/Tdap/Td Vaccines (2 - T d or Tdap) 05/17/2027 05/17/2017 Pap Smear (Ages 21-65) 02/24/2028 , 02/23/2024, 01/20/2023, Additional history exists Colonoscopy 09/07/2032 09/07/2022 Chronic Controlled Substance Toxicology Screening Discontinued 05/29/2024 Chronic Controlled Substance User PDMP Review Discontinued 05/29/2024, 06/08/2023 Goals Goal Patient Goal Type Associated Problems Recent Progress Patient-Stated? Author PT STG 1 Physical Therapy No Ramesh Raymond PT Note: PF 1. Initiate and complete the pelvic floor biofeedback assessment with the use of the [facility] PG 6340 anorectal biofeedback insert x 3 weeks. PT LTG 2 Physical Therapy No Ramesh Raymond PT Note: PF 2. Provide patient education [...] PT LTG 3 Physical Therapy No Ramesh Raymond PT Note: PF 3. Improve the initial [...] control to -2.00 V x 12 weeks. Procedures Procedure Name Priority Date/Time Associated Diagnosis Comments CT CHEST ARCHIVE FOR REFERENCE ONLY Routine 08/28/2025 2:35 PM EDT ANORECTAL MANOMETRY Routine 07/26/2025 12:11 PM EDT Diarrhea, unspecified type CT CHEST ARCHIVE FOR REFERENCE ONLY Routine 07/11/2025 11:11 AM EDT ECG 12-LEAD Routine 07/02/2025 8:11 AM EDT Hyperlipidemia, unspecified hyperlipidemia type Primary hypertension THINPREP PAP TEST (WORKFORCE MANAGEMENT ANALYST) Routine 02/23/2025 9:00 AM EDT Papanicolaou smear POCT DRUG SCREEN PANEL Routine 05/29/2024 7:24 AM EDT Insomnia, unspecified type IMAGING BREAST/BX/MAMMO Routine 02/23/2024 from Last 3 Months or Most Recently Relevant to Health Maintenance Results * CT Chest Archive for Reference Only (08/28/2025 2:35 PM EDT) Only the most recent of2 resultswithin the time period is included. Narrative KANDY - 08/28/2025 2:35 PM EDT This study has been auto finalized and does not contain a result. us File Room Provider IMG DIGITIZE FILMS Final Resu lt KANDY [phone] * Anorectal Manometry (07/26/2025 12:11 PM EDT) Marshall Lala MD GI PROCEDURE ORDERABLES Final R esult * ECG 12 lead (07/02/2025 8:11 AM EDT) 07/02/2025 8:11 AM EDT Shahriar Ryan MD ECG ORDERABLES Final Resul t * ThinPrep Pap Test (Middle [employer] Intermediate School Principal) (02/23/2025 9:00 AM EDT) 02/23/2025 9:00 AM EDT Narrative [facility] - 03/01/2025 5:50 PM EDT To view the final report click the scan hyperlink below. us Russ Zapata MD LAB AMB PATH/CYTO ORDERABLE S Final Result Performing Organization Address City/[facility]/ZIP Co de Phone Number [facility] [address] [place] [address], [place] * POCT Rapid Drug Screen 11 Panel [...] CARE TEST ORDERAB LES Final Result * Imaging Breast/Bx/Mammo Result (02/23/2024) Anatomical Region Laterality Modality Other External Provider IMMelony LEGACY PROCEDURES Final Result from Last 3 Months or Most Recently Relevant to Health Maintenance Insurance [facility] Care Teams Retention Specialist Relationship Specialty Start Date End Date Angie Reza PA [address] [facility] [address] [place] [address] PCP - General Internal Medicine 06/08/23
--- OUTSIDE RECORDS SUMMARY | 2025-09-28 08:22 | XMS_ITS | Encounter Summary ---
Author Organization [facility] Address [address] [place] [address] Care Team Providers Care Courier Delivery Driver Name Role Phone Angie Reza Primary Care Provider [phone] Encounter Details Date Type Department Care Team (Late st Contact Info) Description 03/22/2024 Scanned Document [facility] Pulmonary [address] [place] [phone] Pulmonary, Scan Social History Tobacco Use Types [...] on filedocumented in this encounter Care Teams Courier Delivery Driver Relationship Specialty Start Date End Date Angie Reza PA [address] [place] [address] PCP - General Internal Medicine 06/08/23 documented as of this encounter
--- OUTSIDE RECORDS SUMMARY | 2025-09-28 08:22 | XMS_ITS | Encounter Summary ---
Author Organization [facility] Address [address] [place] [address] Care Team Providers Care Coin Purse Assembler Name Role Phone Suha Oliveros MD Primary Care Provider [phone] Angie Reza Primary Care Provider [phone] Encounter Details Date Type Department Care Team (Late st Contact Info) Description 09/29/2022 Scanned Document [facility] [address] [phone] Ermias More MD [address] [place], [place] [phone] Social History Tobacco Use Types Packs/Day Years [...] on filedocumented in this encounter Care Teams Coin Purse Assembler Relationship Specialty Start Date End Date Suha Oliveros MD [address] [place], [place] [phone] PCP - General 04/06/19 06/07/23 Angie Reza PA [address] [place] [address] PCP - General Internal Medicine 06/08/23 documented as of this encounter
[2025-09-28 08:28] VITALS: BP 145/69; PULSE 69; O2SAT 95; BMI 34.4
== END 2025-09-28 08:43 | disposition home or self-care (01) ==
LOC: HO.PMC 08:16
PROVIDERS: PCP Family Medicine; Visit Provider Nurse Practitioner Family
DX: R51.9 Headache, unspecified (principal); G89.29 Other chronic pain; Z79.891 Long term (current) use of opiate analgesic; D35.2 Benign neoplasm of pituitary gland; M47.812 Spondylosis without myelopathy or radiculopathy, cervical region
CPT/HCPCS: 99214

== ENCOUNTER 2025-10-26 08:15 | Outpatient (AMB) | payer BC, SELFPAY ==
--- NOTE | 2025-10-26 08:16 | A.OFFVIS_ITS ---
Vital Signs 10/26/25 08:23 Height 5 ft 4 in Weight 197 lb 6 oz BMI 33.9 BP 146/79 H Blood Pressure Location Rt brachial Position Sitting Pulse 84 Pulse Source Pulse Oximeter Pulse Oximetry (%) 96 Oxygen Delivery Method Room Air Intake Visit Reasons: PILL COUNT Intake Note: Otilia comes in today for a pill count to oxycodone-acetaminophen, patient should have 6 tablets and presents with 6 tablets which she last took today 10/26/25 at 7:30am. Pain today 04/24 [employer] Required: No Accompanied by: Self / Same As Patient Allergies amphetamine (From [facility]) Allergy (Severe, Verified 10/26/25 08:23) Hypertension dextroamphetamine (From [facility]) Allergy (Severe, Verified 10/26/25 08:23) Hypertension HPI Comments Details: The patient is a 54-year-old female presenting for pill count. She is supposed to have #6 pills in her possession and presents with #6 pills. This demonstrates a responsible attitude in regards to the medication regimen. Patient reports reasonable analgesia with no noted side effects except constipation. Rates pain at 6/10. Patient denies any fever, chills, shortness of breaths, chest pain or tightness, visual disturbances, weakness, sedation, nausea, dizziness or urinary retention. Patient reports she went to [facility] ER last Wednesday and Urgent clinic the next day for new onset of panic attacks with normal cardiac and lab work at both visits. She has Holter monitor now and will follow up with her PCP after ER visit within next 2 weeks. Denies any recent cough, cold, infection, fever or any other significant changes in medical history since last office visit. [facility] Medical History Chronic headaches COPD (chronic obstructive pulmonary disease) Obesity (BMI 30-39.9) Menopause syndrome Insomnia associated with menopause Diabetes Chronic pain Pituitary adenoma Surgical History H/O breast augmentation Family History Mother Carcinoid tumor Diabetes Hypertension High cholesterol Father Heart disease Social History Alcohol intake: current Alcohol intake frequency: does not drink Patient Tobacco Use Status: Former Tobacco user Review of Systems Const All systems reviewed & are unremarkable except as noted in HPI and below Card Denies chest pain, Denies chest pain with activity, Denies irregular heart rhythm, Denies claudication, Denies lightheadedness, Denies radiating jaw, neck or arm pain and Denies dyspnea Resp Denies dyspnea Physical Exam Vital Signs: Last Vital Signs Pulse 84 10/26/25 08:23 BP 146/79 H 10/26/25 08:23 Pulse Ox 96 10/26/25 08:23 Oxygen Delivery Method Room Air 10/26/25 08:23 BMI result Body Mass Index 33.9 General: Appears afebrile. Alert and oriented. Mood and affect appropriate. Follows and participates in conversation appropriately. Respiratory effort is unlabored. No cough. Able to transition from sit to stand unassisted. Ambulates with bilaterally normal heel strike and toe off. Eyes General: appearance normal, both eyes and all related structures Resp Effort & Inspection: normal respiratory effort, able to speak in complete sentences, no cough and no respiratory distress Psych Appearance: grossly normal and well kempt Mental Status: mental status grossly normal Speech and movement: Normal speech and movement present and Clear speech present Affect: normal affect Attitude: cooperative Thought process: Normal thought process present Thought content: Normal thought content present, suicidality (none), no hallucinations and Depressive thoughts present Insight: Good insight present (Psych) Judgement: Good judgement present (Psych) Results Reviewed Results Reviewed: No imaging reports are available for review today. Assessment & Plan Assessment & Plan (1) Chronic headaches: Code(s): R51.9 - Headache, unspecified; G89.29 - Other chronic pain Category: Medical (2) Chronic pain: Code(s): G89.29 - Other chronic pain Category: Medical (3) Chronic, continuous use of opioids: Code(s): F11.90 - Opioid use, unspecified, uncomplicated Category: Medical (4) Pituitary adenoma: Code(s): D35.2 - Benign neoplasm of pituitary gland Category: Medical (5) Cervical spondylosis: Code(s): M47.812 - Spondylosis without myelopathy or radiculopathy, cervical region Category: Medical Plan [place] was reviewed and without concerns. No obvious signs of diversion, abuse or misuse of the opioid medications. Refill for oxycodone/acetaminophen 5-325 mg 1 tab TID prn #90 sent today. Patient has Narcan at home. Refill sent for Dayvigo. All questions and concerns have been answered and patient agrees with the plan. Follow up in 4 weeks for pill count and sooner as needed. Medications: Refilled oxycodone-acetaminophen 5-325 mg Partial Fill upon patient request. 1 tab PO TID PRN 90 tabs 0RF pain 30 days D35.2 - Benign neoplasm of pituitary gland, F11.90 - Opioid use, unspecified, uncomplicated, G89.29 - Other chronic pain lemborexant (Dayvigo) 5 mg PO BEDTIME 30 tabs 2RF 30 days N95.1 - Menopausal and female climacteric states Coding Level of Care Code Est Pt Level 4 (24602) Diagnoses Chronic headaches R51.9; G89.29 Chronic pain G89.29 Chronic, continuous use of opioids F11.90 Pituitary adenoma D35.2 Cervical spondylosis M47.812
[2025-10-26 08:23] VITALS: BP 146/79; PULSE 84; O2SAT 96; BMI 33.9
== END 2025-10-26 08:40 | disposition home or self-care (01) ==
LOC: HO.PMC 08:15
PROVIDERS: PCP Family Medicine; Visit Provider Nurse Practitioner Family
DX: R51.9 Headache, unspecified (principal); G89.29 Other chronic pain; Z79.891 Long term (current) use of opiate analgesic; D35.2 Benign neoplasm of pituitary gland; M47.812 Spondylosis without myelopathy or radiculopathy, cervical region
CPT/HCPCS: 99214